=== PATIENT | male | born 1945 | race Caucasian/White ===

== ENCOUNTER 2022-02-12 11:32 | Outpatient (CLI) | payer MEDICARE, OTHER, SELFPAY ==
[2022-02-12 19:59] LABS: Appearance Urine Clear (Clear); Bilirubin Urine Negative (Negative); Blood Urine Negative (Negative); Color Urine Yellow (Yellow); Glucose Urine UA Negative (Negative); Ketones Urine Negative (Negative); Leukocyte Esterase Ur Negative LEU/UL (NEGATIVE); Nitrate Urine Negative (Negative); Protein Urine Negative (Negative); Urobilinogen Urine 0.2 mg/dL (<2.0); pH Urine 6.5 (5.0-9.0)
[2022-02-12 20:08] LABS: Bacteria Urine Trace /hpf; RBC Urine 0-2 /hpf (0-2); WBC Urine 0-3 /hpf (0-3)
[2022-02-12 20:09] LABS: Add Urine Microscopic? YES
== END 2022-02-12 11:33 | disposition home or self-care (01) ==
PROVIDERS: PCP Family Medicine; Visit Provider Family Medicine
DX: N30.90 Cystitis, unspecified without hematuria (principal)
CPT/HCPCS: 81001; 87086; 87147; 87181; 87186

== ENCOUNTER 2022-02-18 13:01 | Outpatient (CLI) | payer MEDICARE, OTHER, SELFPAY ==
[2022-02-18 20:01] LABS: Hematocrit 45.8 % (42.0-52.0); Hemoglobin 14.9 g/dL (14.0-18.0); Mean Corpuscular HGB Conc 32.5 g/dl (32-36); Mean Corpuscular Hemoglobin 30.7 pg (26-34); Mean Corpuscular Volume 94.2 fl (80-100); Mean Platelet Volume 10.7 fl (7.4-10.4); Platelet Count Result 186 k/mm3 (150-375); Red Blood Count 4.86 M/mm3 (4.6-6.20); Red Cell Distribution Width 14.1 % (11.5-14.5); White Blood Count 6.1 K/mm3 (4.5-10.0)
[2022-02-18 20:06] LABS: Alanine Aminotransferase 15 U/L (6-50); Albumin Level 4.6 g/dL (3.5-5.1); Alkaline Phosphatase 87 U/L (38-126); Anion Gap 8 mmol/L (8-16); Aspartate Amino Transferase 26 U/L (17-59); Bilirubin,Total 0.7 mg/dL (0.2-1.3); Blood Urea Nitrogen 10 mg/dL (9-20); Calcium 9.9 mg/dL (8.4-10.2); Carbon Dioxide 24 mmol/L (22-30); Chloride 105 mmol/L (98-107); Cholesterol 171 mg/dL (0-200); Estimated Glomerular Filt Rate > 60; Glucose 137 mg/dL (65-110); HDL Direct 47 mg/dL; Potassium 4.4 mmol/L (3.4-5.0); Sodium 137 mmol/L (137-145); Triglycerides 123 mg/dL (<150)
[2022-02-18 20:17] LABS: Hemoglobin A1C 5.4 % (<5.7); LDL Cholesterol Direct 87 mg/dL
[2022-02-18 20:32] LABS: Creatinine Urine 74.9 mg/dL
[2022-02-18 20:46] LABS: MALB Creatinine Ratio < 8.0 mg/g (0-30); Microalbumin Urine Random < 6.0 mg/L (0-16.7)
== END 2022-02-18 13:02 | disposition home or self-care (01) ==
PROVIDERS: PCP Family Medicine; Visit Provider Family Medicine
DX: E11.9 Type 2 diabetes mellitus without complications (principal)
CPT/HCPCS: 36415; 80053; 80061; 82043; 83036; 85027

== ENCOUNTER 2022-06-29 14:35 | Emergency (ER) | payer MEDICARE, OTHER, SELFPAY ==
[2022-06-29 14:44] VITALS: BP 160/75; PULSE 84; RESP 18; TEMP 37.2; O2SAT 97
--- NOTE | 2022-06-29 15:24 | ED.WOUNDLAC ---
HPI - Wound/Laceration General Chief Complaint: Wound/Laceration Stated Complaint: lac on head Time Seen by Provider: 06/29/22 15:10 Source: patient, family, RN notes reviewed and old records reviewed Mode of arrival: ambulatory Limitations: no limitations History of Present Illness HPI narrative: 76-year-old male accompanied by son who presents to [facility] care with complaints of laceration to his head which occurred within the past hour prior to arrival. He states that his son and himself were putting siding on a house and a cordless drill fell off of ladder and hit him in the head causing laceration to parietal region of his head. Patient denies any LOC or any feelings of dizziness. Patient reports that he is unsure on his last tetanus and refused tetanus administration. No acute bleeding to scalp laceration.Patient has small abrasion to left cheek no bleeding noted. Onset (ago): hour(s) (within past hour prior to arrival) Location: scalp Patient tetanus UTD: No Treatments prior to arrival: bandage Related Data Home Medications Medication Instructions Recorded Confirmed timolol 0.5 % eye drops 1 drp EACH EYE Q12H 02/13/22 06/29/22 dorzolamide 22.3 mg-timolol 6.8 See Rx Instructions .Route .COMPLEX 06/29/22 06/29/22 mg/mL eye drops latanoprost 0.005 % eye drops See Rx Instructions .Route .COMPLEX 06/29/22 06/29/22 moxifloxacin 0.5 % eye drops See Rx Instructions .Route .COMPLEX 06/29/22 06/29/22 prednisolone acetate 1 % eye See Rx Instructions .Route .COMPLEX 06/29/22 06/29/22 drops,suspension timolol maleate 0.5 % eye drops See Rx Instructions .Route .COMPLEX 06/29/22 06/29/22 Allergies Allergy/AdvReac Type Severity Reaction Status Date / Time No Known Allergies Allergy Verified 02/17/22 15:17 Review of Systems Review of Systems: CONSTITUTIONAL: Denies fever, chills, or sweats. EYES: Denies visual changes, redness, or discharge. ENT: Denies rhinorrhea, congestion, sore throat, or otalgia. CARDIOVASCULAR: Denies chest pain, palpitations, or edema. RESPIRATORY: Denies cough or dyspnea. GASTROINTESTINAL: Denies abdominal pain, nausea, vomiting, or diarrhea. GENITOURINARY: Denies dysuria or hematuria. SKIN: Denies rash or itching.small abrasion to left cheek and scalp laceration to parietal region o head MUSCULOSKELETAL: Denies back pain, joint pain, or myalgia. NEUROLOGIC: Denies any acute headache, no numbness, or weakness, denies any dizziness or feelings of being lightheaded PSYCHIATRIC: Denies anxiety or depression. All systems reviewed & are unremarkable except as noted in HPI and below PMFSH Past Medical History Medical History (Updated 07/03/22 @ 11:28 by Coleen Perez NP) COVID-30 October 2020 Diabetes Glaucoma Hypertension Surgical History Surgical History (Updated 07/03/22 @ 11:27 by Coleen Perez NP) H/O cataract removal with insertion of prosthetic lens Family History Family History Father Heart disease Social History Social History Smoking status: Never smoker Comments At time of signature, agree with nursing past medical, surgical, social and family history. There is no relevant family history pertinent to the presenting complaint Exam Narrative: GENERAL: Well-appearing, well-nourished, and in no acute distress. HEAD: Normocephalic, atraumatic. EYES: PERRLA and EOMI. ENT: Nares clear, no rhinorrhea or epistaxis. Mucous membranes moist.TM's normal with good light reflex, throat pink with no lesions or swelling NECK: Supple.no lymphadenopathy CHEST: Clear to auscultation. No respiratory distress.SAO2 97% on room air HEART: Regular rate and rhythm. No murmur heard. Normal peripheral pulses. ABDOMEN: Soft, nontender, nondistended, normal active bowel sounds. EXTREMITIES: Normal range of motion. No edema. SKIN: Warm, dry, no rash.Scalp laceration 3.5cm in length with
--- NOTE | 2022-06-29 19:53 | PC.NURSE ---
1610 noted during stay pt informed staff he had left eye cataract surgery 06/25. reported no vision changes or pain to left eye since injury to top of head today and on discharge stated he will inform opthalmologist of this occurrence today.
== END 2022-06-29 16:10 | disposition home or self-care (01) ==
PROVIDERS: Emergency Provider Registered Nurse; PCP Family Medicine
DX: S01.01XA Laceration without foreign body of scalp, initial encounter (principal); W20.8XXA Other cause of strike by thrown, projected or falling object, initial encounter; I10 Essential (primary) hypertension; E11.39 Type 2 diabetes mellitus with other diabetic ophthalmic complication; H42 Glaucoma in diseases classified elsewhere; Z79.84 Long term (current) use of oral hypoglycemic drugs; Z86.16 Personal history of COVID-19; Z98.49 Cataract extraction status, unspecified eye; Z96.1 Presence of intraocular lens
CPT/HCPCS: 12002; 99212; G0463

== ENCOUNTER 2022-08-21 14:20 | Outpatient (CLI) | payer MEDICARE, OTHER, SELFPAY ==
[2022-08-21 19:56] LABS: Hemoglobin A1C 6.1 % (<5.7)
[2022-08-21 20:06] LABS: Creatinine Urine 45.2 mg/dL
[2022-08-21 20:07] LABS: MALB Creatinine Ratio 16.4 mg/g (0-30); Microalbumin Urine Random 7.4 mg/L (0-16.7)
== END 2022-08-21 14:21 | disposition home or self-care (01) ==
PROVIDERS: PCP Family Medicine; Visit Provider Family Medicine
DX: E11.9 Type 2 diabetes mellitus without complications (principal)
CPT/HCPCS: 36415; 82043; 83036

== ENCOUNTER 2023-02-19 07:44 | Outpatient (CLI) | payer MEDICARE, OTHER, SELFPAY ==
[2023-02-19 19:18] LABS: Alanine Aminotransferase 23 U/L (6-50); Albumin Level 4.3 g/dL (3.5-5.1); Alkaline Phosphatase 113 U/L (38-126); Anion Gap 8 mmol/L (8-16); Aspartate Amino Transferase 58 U/L (17-59); Bilirubin,Total 0.8 mg/dL (0.2-1.3); Blood Urea Nitrogen 11 mg/dL (9-20); Carbon Dioxide 25 mmol/L (22-30); Chloride 104 mmol/L (98-107); Cholesterol 171 mg/dL (0-200); Estimated Glomerular Filt Rate > 60; Glucose 127 mg/dL (65-110); HDL Direct 34 mg/dL; Potassium 4.3 mmol/L (3.4-5.0); Sodium 137 mmol/L (137-145); Triglycerides 147 mg/dL (<150)
[2023-02-19 19:29] LABS: LDL Cholesterol Direct 96 mg/dL
[2023-02-19 19:46] LABS: Basophils Percent Auto 0.9 % (0.2-1.2); Eosinophils Absolute Auto 0.1 K/mm3 (0-0.3); Eosinophils Percent Auto 2.6 % (0-4.4); Hematocrit 44.1 % (42.0-52.0); Hemoglobin 14.5 g/dL (14.0-18.0); Immature Granulocyte Absolute 0.02 K/mm3 (0.00-0.031); Immature Granulocyte Percent A 0.5 % (0-0.5); Lymphocytes Absolute Auto 1.59 K/mm3 (0.9-3.2); Lymphocytes Percent Auto 37.1 % (18.3-44.2); Mean Corpuscular HGB Conc 32.9 g/dl (32-36); Mean Corpuscular Hemoglobin 30.9 pg (26-34); Mean Platelet Volume 10.8 fl (7.4-10.4); Monocytes Absolute Auto 0.6 K/mm3 (0.1-0.6); Monocytes Percent Auto 13.1 % (2.6-8.5); Neutrophils Percent Auto 45.8 % (45.5-73.1); Platelet Count Result 171 k/mm3 (150-375); Red Blood Count 4.69 M/mm3 (4.6-6.20); Red Cell Distribution Width 13.8 % (11.5-14.5); White Blood Count 4.3 K/mm3 (4.5-10.0)
[2023-02-19 21:25] LABS: Hemoglobin A1C 5.9 % (<5.7)
== END 2023-02-19 07:45 | disposition home or self-care (01) ==
PROVIDERS: PCP Family Medicine; Visit Provider Nurse Practitioner
DX: E11.9 Type 2 diabetes mellitus without complications (principal); I10 Essential (primary) hypertension
CPT/HCPCS: 36415; 80053; 80061; 83036; 85025

== ENCOUNTER 2023-12-21 14:45 | Outpatient (CLI) | payer MEDICARE, OTHER, SELFPAY ==
[2023-12-21 18:47] LABS: Hematocrit 44.1 % (42.0-52.0); Hemoglobin 14.4 g/dL (14.0-18.0); Mean Corpuscular HGB Conc 32.7 g/dl (32-36); Mean Corpuscular Hemoglobin 29.9 pg (26-34); Mean Corpuscular Volume 91.5 fl (80-100); Mean Platelet Volume 10.3 fl (7.4-10.4); Platelet Count Result 166 k/mm3 (150-375); Red Blood Count 4.82 M/mm3 (4.6-6.20)
[2023-12-21 18:57] LABS: Alanine Aminotransferase 52 U/L (6-50); Albumin Level 4.2 g/dL (3.5-5.1); Alkaline Phosphatase 172 U/L (38-126); Anion Gap 6 mmol/L (8-16); Aspartate Amino Transferase 54 U/L (17-59); Blood Urea Nitrogen 13 mg/dL (9-20); Calcium 9.9 mg/dL (8.4-10.2); Carbon Dioxide 29 mmol/L (22-30); Chloride 103 mmol/L (98-107); Estimated Glomerular Filt Rate > 60; Glucose 126 mg/dL (65-110); Potassium 3.9 mmol/L (3.4-5.0); Sodium 138 mmol/L (137-145)
[2023-12-21 19:09] LABS: Hemoglobin A1C 6.5 % (<5.7)
[2023-12-21 20:16] LABS: Creatinine Urine 31.8 mg/dL
[2023-12-21 20:22] LABS: MALB Creatinine Ratio < 18.9 mg/g (0-30); Microalbumin Urine Random < 6.0 mg/L (0-16.7)
== END 2023-12-21 14:46 | disposition home or self-care (01) ==
LOC: ANHBWCLAB 14:47
PROVIDERS: PCP Family Medicine; Visit Provider Family Medicine
DX: E11.9 Type 2 diabetes mellitus without complications (principal)
CPT/HCPCS: 36415; 80053; 82043; 83036; 85027

== ENCOUNTER 2024-01-26 12:24 | Outpatient (CLI) | payer MEDICARE, OTHER, SELFPAY ==
--- NOTE | ~2024-01-26 | CT_ITS ---
Noncontrast CT scan of the orbits CLINICAL HISTORY: Vision change TECHNIQUE: Axial noncontrast imaging of the orbits was performed. Sagittal and coronal reformatted im ages were constructed. Dose reduction technique was used on this scan by utilizing automated exposure control and iterative reconstruction technique. The dose-length product (DLP) was 221.76 mGy-cm. Findings: Eye globes are symmetric in size and position. Extraocular muscles are unremarkable. No int raorbital mass identified. Optic chiasm grossly unremarkable. No distinct evidence for sellar or supr asellar mass. Soft tissues are unremarkable. No fracture identified. Paranasal sinuses are clear. IMPRESSION: No significant abnormality identified. Reviewed, dictated and finalized at location .
--- NOTE | ~2024-01-26 | CT_ITS ---
Non-contrast Head CT History: Visual disturbance Technique: Axial non-contrast imaging of the brain was performed. Dose reduction technique was used on this scan by utilizing automated exposure control and iterative reconstruction technique. The dose -length product (DLP) was 599.57 mGy-cm. Findings: There is no evidence of intracranial hemorrhage, mass lesion, or acute infarct. Brain par enchyma appears normal. The ventricles and subarachnoid spaces are normal in size. The calvarium ap pears normal. The visualized paranasal sinuses and mastoid air cells are clear. Impression: No significant abnormality seen. Reviewed, dictated and finalized at location . Impression: No significant abnormality seen.
== END 2024-01-26 12:25 ==
PROVIDERS: PCP Family Medicine; Visit Provider Family Medicine
DX: H53.9 Unspecified visual disturbance (principal)
CPT/HCPCS: 70450; 70480

== ENCOUNTER 2024-03-02 15:29 | Outpatient (CLI) | payer MEDICARE, OTHER, SELFPAY ==
[2024-03-02 20:00] LABS: Basophils Percent Auto 0.5 % (0.2-1.2); Eosinophils Absolute Auto 0.1 K/mm3 (0-0.3); Eosinophils Percent Auto 2.6 % (0-4.4); Hematocrit 40.4 % (42.0-52.0); Hemoglobin 13.2 g/dL (14.0-18.0); Immature Granulocyte Absolute 0.02 K/mm3 (0.00-0.031); Immature Granulocyte Percent A 0.4 % (0-0.5); Lymphocytes Percent Auto 23.8 % (18.3-44.2); Mean Corpuscular HGB Conc 32.7 g/dl (32-36); Mean Corpuscular Hemoglobin 29.8 pg (26-34); Mean Corpuscular Volume 91.2 fl (80-100); Mean Platelet Volume 11.1 fl (7.4-10.4); Monocytes Absolute Auto 0.7 K/mm3 (0.1-0.6); Monocytes Percent Auto 13.2 % (2.6-8.5); Neutrophils Absolute Auto 3.3 K/mm3 (1.3-6.7); Neutrophils Percent Auto 59.5 % (45.5-73.1); Platelet Count Result 180 k/mm3 (150-375); Red Blood Count 4.43 M/mm3 (4.6-6.20); Red Cell Distribution Width 13.9 % (11.5-14.5); White Blood Count 5.5 K/mm3 (4.5-10.0)
[2024-03-02 20:17] LABS: Alanine Aminotransferase 89 U/L (6-50); Albumin Level 3.9 g/dL (3.5-5.1); Alkaline Phosphatase 459 U/L (38-126); Anion Gap 6 mmol/L (4-12); Aspartate Amino Transferase 125 U/L (17-59); Bilirubin,Total 0.9 mg/dL (0.2-1.3); Blood Urea Nitrogen 7 mg/dL (9-20); Calcium 9.8 mg/dL (8.4-10.2); Carbon Dioxide 30 mmol/L (22-30); Chloride 103 mmol/L (98-107); Estimated Glomerular Filt Rate > 60; Glucose 159 mg/dL (65-110); Potassium 3.9 mmol/L (3.4-5.0); Sodium 139 mmol/L (137-145)
[2024-03-02 20:32] LABS: Alanine Aminotransferase 93 U/L (6-50); Albumin Level 3.9 g/dL (3.5-5.1); Alkaline Phosphatase 452 U/L (38-126); Aspartate Amino Transferase 126 U/L (17-59); Bilirubin,Total 0.9 mg/dL (0.2-1.3)
[2024-03-02 20:46] LABS: Hepatitis B Surface Antigen Negative (Negative)
[2024-03-02 20:47] LABS: Appearance Urine Clear (Clear); Bilirubin Urine Negative (Negative); Blood Urine Negative (Negative); Color Urine Yellow (Yellow); Glucose Urine UA Negative (Negative); Ketones Urine Negative (Negative); Leukocyte Esterase Ur Negative LEU/UL (Negative); Nitrate Urine Negative (Negative); Protein Urine Negative (Negative); Specific Grav Ur 1.007 (1.001-1.035)
[2024-03-02 20:51] LABS: HAV RESULT Negative (Negative); Hepatitis B Core IgM Result Negative (Negative)
[2024-03-02 21:03] LABS: Hepatitis C Virus Antibody Negative (Negative)
[2024-03-02 21:07] LABS: Add Urine Microscopic? NO
== END 2024-03-02 15:30 | disposition home or self-care (01) ==
LOC: ANHBWCLAB 15:31
PROVIDERS: PCP Nurse Practitioner Adult Health; Visit Provider Family Medicine
DX: R10.11 Right upper quadrant pain (principal); R74.01 Elevation of levels of liver transaminase levels; R74.8 Abnormal levels of other serum enzymes
CPT/HCPCS: 36415; 80053; 80074; 80076; 81003; 85025

== ENCOUNTER 2024-03-10 08:15 | Outpatient (CLI) | payer MEDICARE, OTHER, SELFPAY ==
--- NOTE | ~2024-03-10 | CT_ITS ---
EXAMINATION: CT abdomen pelvis wo con DATE: 03/10/2024 08:35 INDICATION: Right upper quadrant abdominal pain. TECHNIQUE: Computed tomography (CT) of the abdomen and pelvis was performed without intravenous contr ast. Automated exposure control and iterative reconstruction technique were employed. The dose-length product was 1122.92 mGy-cm. COMPARISON: None. FINDINGS: The visualized portions of the lung bases demonstrate mild atelectasis and mild chronic int erstitial lung disease. There is a trace left pleural effusion. The heart size is normal. No pericard ial effusion. There is paraesophageal lymphadenopathy. There is mild bilateral gynecomastia. There ar e cysts in the liver measuring up to 8 mm. The gallbladder is distended. There is a 6.7 cm mass abutt ing the hilum of the liver and the head of the pancreas. The adrenal glands are normal. There is a 12 mm cyst in right kidney. There are parenchymal calcifications in left kidney. The prostate is modera tely enlarged. There is diverticulosis of the colon without evidence of diverticulitis. The appendix is normal. There is a moderate volume of ascites with nodular peritoneal thickening. There is gastroh epatic, periportal, aortocaval, left para-aortic lymphadenopathy. There are bridging endplate osteoph ytes at multiple levels in the spine, consistent with diffuse idiopathic skeletal hyperostosis (DISH) . There is severe lumbar spondylosis. IMPRESSION: 1. 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 Diagnostic paracentesis is recommended. 2. Chest and abdominal lymphadenopathy, consistent with metastatic disease. 3. Mass abutting the hilum of the liver and the head of the pancreas, which may be lorenzo metastatic d isease or a pancreatic mass. 4. Gallbladder distention, which may be secondary to fasting or acute cholecystitis from cystic duct or common duct obstruction from the mass abutting the hilum of the liver. Consider hepatobiliary scin tigraphy. Reviewed, dictated and finalized at location A. IMPRESSION: 1. 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 Diagnostic parace ntesis is recommended. 2. Chest and abdominal lymphadenopathy, consistent with metastatic disease. 3. Mass abutting the hilum of the liver and the head of the pancreas, which may be lorenzo metastatic disease or a pancreatic mass. 4. Gallbladder distention, which may be secondary to fasting or acute cholecyst itis from cystic duct or common duct obstruction from the mass abutting the hil um of the liver. Consider hepatobiliary scintigraphy.
== END 2024-03-10 08:16 ==
LOC: GOSHIMG 08:17
PROVIDERS: PCP Nurse Practitioner Adult Health; Visit Provider Nurse Practitioner Adult Health
DX: C78.6 Secondary malignant neoplasm of retroperitoneum and peritoneum (principal); R59.1 Generalized enlarged lymph nodes; K82.8 Other specified diseases of gallbladder
CPT/HCPCS: 74176

== ENCOUNTER 2024-03-15 11:05 | Outpatient (CLI) | payer MEDICARE, OTHER, SELFPAY ==
[2024-03-15 11:36] LABS: Basophils Percent Auto 0.7 % (0.2-1.2); Eosinophils Absolute Auto 0.1 K/mm3 (0-0.3); Eosinophils Percent Auto 1.9 % (0-4.4); Hematocrit 40.1 % (42.0-52.0); Hemoglobin 13.3 g/dL (14.0-18.0); Immature Granulocyte Absolute 0.03 K/mm3 (0.00-0.031); Immature Granulocyte Percent A 0.5 % (0-0.5); Lymphocytes Absolute Auto 1.01 K/mm3 (0.9-3.2); Lymphocytes Percent Auto 17.6 % (18.3-44.2); Mean Corpuscular HGB Conc 33.2 g/dl (32-36); Mean Corpuscular Volume 90.3 fl (80-100); Mean Platelet Volume 9.9 fl (7.4-10.4); Monocytes Absolute Auto 0.8 K/mm3 (0.1-0.6); Monocytes Percent Auto 13.1 % (2.6-8.5); Neutrophils Absolute Auto 3.8 K/mm3 (1.3-6.7); Neutrophils Percent Auto 66.2 % (45.5-73.1); Platelet Count Result 172 k/mm3 (150-375); Red Blood Count 4.44 M/mm3 (4.6-6.20); Red Cell Distribution Width 13.6 % (11.5-14.5); White Blood Count 5.7 K/mm3 (4.5-10.0)
[2024-03-15 12:42] LABS: Alanine Aminotransferase 78 U/L (6-50); Albumin Level 3.8 g/dL (3.5-5.1); Alkaline Phosphatase 570 U/L (38-126); Anion Gap 7 mmol/L (4-12); Aspartate Amino Transferase 89 U/L (17-59); Bilirubin,Total 1.2 mg/dL (0.2-1.3); Blood Urea Nitrogen 6 mg/dL (9-20); Calcium 9.8 mg/dL (8.4-10.2); Carbon Dioxide 29 mmol/L (22-30); Chloride 100 mmol/L (98-107); Estimated Glomerular Filt Rate > 60; Glucose 134 mg/dL (65-110); Sodium 136 mmol/L (137-145)
[2024-03-16 16:09] LABS: CA 19-9 <3 U/mL (<34)
== END 2024-03-15 11:06 | disposition home or self-care (01) ==
LOC: ANHLAB 11:11
PROVIDERS: PCP Nurse Practitioner Adult Health; Visit Provider Internal Medicine Hematology & Oncology
DX: C25.9 Malignant neoplasm of pancreas, unspecified (principal)
CPT/HCPCS: 36415; 80053; 85025; 86301

== ENCOUNTER 2024-03-15 11:52 | Outpatient (CLI) | payer MEDICARE, OTHER, SELFPAY ==
--- NOTE | ~2024-03-15 | US_ITS ---
EXAMINATION: US paracentesis abd w/image DATE: 03/15/2024 15:57 INDICATION: Ascites. TECHNIQUE: The procedure and its risks, benefits, and alternatives were discussed with the patient. P otential risks discussed included bleeding and infection. The skin was prepped and draped in sterile fashion. 1% lidocaine was used for local anesthesia. Under ultrasound guidance, a 5 Fr catheter with trochar was advanced into the ascites in the right lower quadrant. Fluid was aspirated. The catheter was removed, and a dressing was applied. There were no immediate complications. FINDINGS: Ultrasound images demonstrate ascites and the catheter within the fluid. IMPRESSION: 1. Successful ultrasound-guided paracentesis yielding 1100 mL of red fluid. Reviewed, dictated and finalized at location A.
[2024-03-15 14:45] LABS: INR 1.1
== END 2024-03-15 11:53 | disposition home or self-care (01) ==
PROVIDERS: Radiology Diagnostic Radiology; PCP Nurse Practitioner Adult Health; Visit Provider Internal Medicine Hematology & Oncology
DX: R18.0 Malignant ascites (principal)
CPT/HCPCS: 36415; 49083; 80053; 85025; 85610; 86301; 88108; 88305; 88342

== ENCOUNTER 2024-03-16 08:44 | Outpatient (CLI) | payer MEDICARE, OTHER, SELFPAY ==
--- NOTE | ~2024-03-16 | PE_ITS ---
EXAMINATION: PET skull to mid thigh DATE: 03/16/2024 11:31 INDICATION: Neoplasm of pancreas, unspecified. TECHNIQUE: Blood glucose level was 133 mg/dL. 9.221 mCi of 18-fluorodeoxyglucose (18-FDG) was adminis tered i.v. Low dose computed tomography (CT) images were acquired from the base of the brain to the p roximal thighs for attenuation correction and anatomic localization. Automated exposure control was e mployed. Dose-length product (DLP) was 1278 mGy-cm. Positron emission tomography (PET) images were ac quired in the same distribution. COMPARISON: CT abdomen and pelvis 03/10/2024 FINDINGS: Head/neck: There are nodules in the thyroid measuring up to 14 mm, likely not clinically significant. There is left supraclavicular lymphadenopathy with maximum SUV of 3.1. The largest left supraclavicu lar node measures 2.1 x 1.9 cm. Chest: The lungs demonstrate mild atelectasis. There are small pleural effusions. The heart size is n ormal. No pericardial effusion. There is mediastinal lymphadenopathy with increased activity. There i s bilateral gynecomastia. Abdomen/pelvis/proximal thighs: The liver is normal. There is sludge or stones in the gallbladder, wh ich is normal in size. The spleen, pancreas, and adrenal glands are normal. There is an 11 mm cyst in right kidney. There are parenchymal calcifications in left kidney. The prostate is moderately enlarg ed. There are no dilated loops of bowel. There is a moderate volume of ascites with nodular peritonea l thickening. There is aortocaval, left para-aortic, mesenteric, periportal, gastrohepatic, and perip ortal lymphadenopathy. There is no osseous malignancy. IMPRESSION: 1. Lymphadenopathy in the chest, abdomen, and pelvis and peritoneal nodularity, consistent with metas tatic disease or lymphoma. Consider ultrasound-guided core needle biopsy of a left supraclavicular ly mph node. 2. Moderate volume of ascites. 3. Small pleural effusions. Reviewed, dictated and finalized at location A. IMPRESSION: 1. Lymphadenopathy in the chest, abdomen, and pelvis and peritoneal nodularity, consistent with metastatic disease or lymphoma. Consider ultrasound-guided cor e needle biopsy of a left supraclavicular lymph node. 2. Moderate volume of ascites. 3. Small pleural effusions.
[2024-03-16 09:17] LABS: Glucose Point of Care 133 mg/dl (65-105)
== END 2024-03-16 08:45 | disposition home or self-care (01) ==
LOC: ANHIMG 08:47
PROVIDERS: PCP Nurse Practitioner Adult Health; Visit Provider Internal Medicine Hematology & Oncology
DX: C25.0 Malignant neoplasm of head of pancreas (principal); J90 Pleural effusion, not elsewhere classified; R18.8 Other ascites; R59.1 Generalized enlarged lymph nodes
CPT/HCPCS: 78815; A9552

== ENCOUNTER 2024-03-24 10:00 | Outpatient (CLI) | payer MEDICARE, OTHER, SELFPAY ==
[2024-03-24 12:53] LABS: Prostate Specific Antigen 6.5 ng/mL (< OR = 4.0)
== END 2024-03-24 10:01 | disposition home or self-care (01) ==
LOC: ANHLAB 10:02
PROVIDERS: PCP Nurse Practitioner Adult Health; Visit Provider Internal Medicine Hematology & Oncology
DX: N40.0 Benign prostatic hyperplasia without lower urinary tract symptoms (principal)
CPT/HCPCS: 36415; 84153

== ENCOUNTER 2024-03-28 08:59 | Outpatient (CLI) | payer MEDICARE, OTHER, SELFPAY ==
--- NOTE | ~2024-03-28 | US_ITS ---
EXAMINATION: US biopsy lymph node DATE: 03/28/2024 10:04 INDICATION: Left supraclavicular lymphadenopathy TECHNIQUE: The procedure including the risks and benefits was discussed with the patient. Risks discu ssed included bleeding and infection. The patient understood the risks and agreed to proceed. The sk in overlying the enlarged left supraclavicular lymph nodes of concern was prepped and draped in usual sterile fashion. Anesthetic was administered with 1% lidocaine subcutaneously. An 18 gauge core bi opsy needle was advanced under continuous ultrasound observation to the lesion of interest. 7 core b iopsy specimens were obtained, 5 placed in RPMI media and 2 in formalin. The needle was removed and the entry site was cleaned and dressed. Post procedure ultrasound demonstrated no hemorrhage. FINDINGS: Ultrasound images demonstrate biopsy needle advanced into a 1.7 x 1.7 cm round left supracl avicular lymph node. IMPRESSION: 1. Successful Ultrasound-guided biopsy of a 1.7 cm left supraclavicular lymph node. Reviewed, dictated and finalized at location A. IMPRESSION: 1. Successful Ultrasound-guided biopsy of a 1.7 cm left supraclavicular lymph n ode.
== END 2024-03-28 09:00 | disposition home or self-care (01) ==
LOC: ANHIMG 09:02
PROVIDERS: PCP Nurse Practitioner Adult Health; Visit Provider Internal Medicine Hematology & Oncology
DX: R59.0 Localized enlarged lymph nodes (principal)
CPT/HCPCS: 38505; 76942; 88108; 88184; 88185; 88305; 88342

== ENCOUNTER 2024-04-04 16:01 | Outpatient (CLI) | payer MEDICARE, OTHER, SELFPAY ==
[2024-04-04 16:15] LABS: Kit Draw Collected
== END 2024-04-04 16:02 | disposition home or self-care (01) ==
LOC: ANHLAB 16:03
PROVIDERS: PCP Nurse Practitioner Adult Health; Visit Provider Internal Medicine Hematology & Oncology
DX: R59.0 Localized enlarged lymph nodes (principal)
CPT/HCPCS: 36415

== ENCOUNTER 2024-04-16 16:39 | Inpatient (IN) | payer MEDICARE, OTHER, SELFPAY ==
--- NOTE | ~2024-04-16 | CT_ITS ---
EXAMINATION: CT abdomen pelvis wo con DATE: 04/16/2024 17:58 INDICATION: diffuse abd pain/bloating, ascites TECHNIQUE: Computed tomography (CT) of the abdomen and pelvis was performed without intravenous contr ast. Automated exposure control and iterative reconstruction technique were employed. The dose-length product was 1288.84 mGy-cm. COMPARISON: 03/10/2024; PET/CT 03/16/2024. FINDINGS: Lower thorax: Mild bibasilar scar/atelectasis. Coronary artery calcification. Enlarged periesophageal lymph nodes. Liver: Normal. Biliary/Gallbladder: Gallbladder is normal. No bile duct dilation. Pancreas: 6.5 cm mass at the head of the pancreas abutting the hilum of the liver. No ductal dilation . Spleen: Normal. Adrenals:No mass. Kidneys: No suspicious mass, obstructing stone, or hydronephrosis. Multiple left midpole complication is measuring up to 9 mm. GI tract: No small or large bowel dilation. Normal appendix. Diverticulosis without diverticulitis. Mesentery/Peritoneum: Moderate volume ascites. Nodular pleural surfaces, most pronounced in the upper abdomen, adjacent to the liver dome, and in the deep pelvis. Multiple enlarged gastrohepatic, peripo rtal, mesenteric, periaortic, and left inguinal lymph nodes. Retroperitoneum: No mass. Pelvis: Pelvic organs are within normal limits. Soft Tissues: Moderate diffuse body wall edema Bones: No acute osseous finding. IMPRESSION: Right upper quadrant mass at the head of the pancreas/hilum of the liver. Multiple hepatic masses suspicious for metastatic disease. Thoracic and upper abdominal lymphadenopathy. Peritoneal. Moderate ascites. Reviewed, dictated and finalized at location K.
--- NOTE | ~2024-04-16 | XR_ITS ---
EXAMINATION: XR chest 2V DATE: 04/16/2024 23:59 INDICATION: Shortness of breath. TECHNIQUE: Frontal and lateral views of the chest were obtained. COMPARISON: CT abdomen and pelvis 04/16/2024 FINDINGS: There is mild atelectasis in the lower lung zones. No pleural effusion or pneumothorax. The heart size is normal. IMPRESSION: 1. Mild atelectasis in the lower lung zones. Reviewed, dictated and finalized at location E.
--- NOTE | ~2024-04-16 | US_ITS ---
EXAMINATION: US renal BI DATE: 04/17/2024 10:39 INDICATION: Elevated creatinine. TECHNIQUE: Multiple ultrasound grayscale images of the kidneys were obtained. COMPARISON: CT abdomen pelvis 04/16/24 FINDINGS: The right kidney measures 11.2 x 5.6 x 6.7 cm. The left kidney measures 10.4 x 5.3 x 6.0 cm. The kidn eys demonstrate normal parenchymal echogenicity. There is no hydronephrosis. The bladder is not visua lized. There is a large volume of ascites. IMPRESSION: 1. Normal kidneys. No hydronephrosis. 2. Large volume of ascites. Reviewed, dictated and finalized at location E.
--- NOTE | ~2024-04-16 | US_ITS ---
EXAMINATION: US scrotum doppler DATE: 04/17/2024 08:32 INDICATION: Testicular swelling. TECHNIQUE: Grayscale and Doppler ultrasound images of the testes were obtained. COMPARISON: CT abdomen and pelvis 04/16/24 FINDINGS: The right testis measures 2.4 x 2.5 x 2.0 cm. The left testis measures 2.1 x 2.9 x 2.5 cm. There is normal vascular flow to both testes. The right epididymis is normal with normal vascular cj w. The left epididymis is normal with normal vascular flow. There is no varicocele or hydrocele. IMPRESSION: 1. Normal testes. Reviewed, dictated and finalized at location E. IMPRESSION: 1. Normal testes.
--- NOTE | ~2024-04-16 | XR_ITS ---
EXAMINATION: XR fl guide central line place DATE: 04/22/2024 09:17 INDICATION: Left port catheter insertion TECHNIQUE: 2 fluoroscopic images of the left chest were obtained during procedure performed by Dr. Raymundo morocho. Radiologist was not present for the imaging or procedure. The amount of fluoroscopy time used du ring this procedure was 0.3 minutes. COMPARISON: None. FINDINGS: Left subclavian central venous port catheter with distal tip at the superior cavoatrial junction. No evident pneumothorax in the visualized lungs. IMPRESSION: 1. Fluoroscopy utilized during placement of a left subclavian central venous port catheter with dista l tip at the superior cavoatrial junction. See procedure note for further detail. Reviewed, dictated and finalized at location A. IMPRESSION: 1. Fluoroscopy utilized during placement of a left subclavian central venous po rt catheter with distal tip at the superior cavoatrial junction. See procedure note for further detail.
--- NOTE | ~2024-04-16 | US_ITS ---
EXAMINATION: US paracentesis abd w/image DATE: 04/22/2024 11:14 INDICATION: Ascites. TECHNIQUE: The procedure and its risks and benefits were discussed with the patient. Potential risks discussed included bleeding and infection. The skin was prepped and draped in sterile fashion. 1% lid ocaine was used for local anesthesia. Under ultrasound guidance, a 5 Fr catheter with trochar was adv anced into the ascites in the left lower quadrant. Fluid was aspirated into vacuum bottles. The jovanni ter was removed, and a dressing was applied. There were no immediate complications. FINDINGS: Ultrasound images demonstrate ascites and the catheter within the fluid. IMPRESSION: 1. Successful ultrasound-guided paracentesis yielding 5000 mL of reddish-brown fluid. Reviewed, dictated and finalized at location A.
--- NOTE | ~2024-04-16 | NM_ITS ---
EXAMINATION: NM renal flow and function DATE: 04/21/2024 09:13 INDICATION: Nonresolving acute renal insufficiency TECHNIQUE: 9 mCi Tc-99m MAG3 was administered IV. The patient was scanned in the supine position. A posterior abdominal radionuclide angiogram was obtained. A subsequent time course of static images of the kidneys, ureters, and bladder was obtained. COMPARISON: MRI dated 04/19/2024 FINDINGS: The posterior abdominal radionuclide angiogram and sequential static images show normal size, positio n, and morphology of the kidneys. No evident enlargement of the renal rebecca to suggest hydronephrosis. Peak renal parenchymal uptake was >29 min in left kidney and >29 min in right kidney (normal peak 3- 5 minutes) with continually increasing renal activity curves. The relative early renal uptake was 54 % on the left and 46% on the right (<40% is abnormal). No abnormalities of the ureters or bladder ar e seen. T1/2 for clearance of activity from the both kidneys is indeterminate with no evident accumulation of activity in the renal pelvises. IMPRESSION: 1. Symmetric markedly decreased renal function with continually rising renal activity curves with no discernible accumulation of activity in the bilateral renal pelvises consistent with severe nonspeci fic nephropathy which based on the current and recent prior imaging does not appear obstructive in et iology. Reviewed, dictated and finalized at location A. IMPRESSION: 1. Symmetric markedly decreased renal function with continually rising renal a ctivity curves with no discernible accumulation of activity in the bilateral re nal pelvises consistent with severe nonspecific nephropathy which based on the current and recent prior imaging does not appear obstructive in etiology.
--- NOTE | ~2024-04-16 | MR_ITS ---
EXAMINATION: MR abdomen wo/w con DATE: 04/19/2024 14:18 INDICATION: Metastatic cancer. TECHNIQUE: Magnetic resonance imaging (MRI) of the abdomen was performed without and with 20 mL Multi Asha intravenous contrast. COMPARISON: CT abdomen and pelvis 04/16/24 FINDINGS: There is a 9.1 x 7.6 cm mass in the liver centered at the hilum. There are multiple smaller masses sc attered in the liver. There are gallstones in the gallbladder, which is distended. The spleen, pancre as, adrenal glands, and left kidney are normal. There is a 9 mm hemorrhagic cyst in right kidney. The re are no dilated loops of bowel. There is a moderate volume of ascites. There is nodularity of the p eritoneum, consistent with carcinomatosis. There is aortocaval, left para-aortic, gastrohepatic, effie portal, and mesenteric lymphadenopathy. Body wall edema is noted. IMPRESSION: 1. Liver masses, abdominal lymphadenopathy, and moderate volume of malignant ascites, consistent with metastatic disease. 2. Cholelithiasis. Gallbladder distention may secondary to fasting. Reviewed, dictated and finalized at location E. IMPRESSION: 1. Liver masses, abdominal lymphadenopathy, and moderate volume of malignant as cites, consistent with metastatic disease. 2. Cholelithiasis. Gallbladder distention may secondary to fasting.
--- NOTE | ~2024-04-16 | XR_ITS ---
EXAMINATION: XR chest port-a-cath/central DATE: 04/22/2024 09:36 INDICATION: Port catheter placement TECHNIQUE: frontal view of the chest was obtained. COMPARISON: Chest radiograph dated 04/16/2024 FINDINGS: Left subclavian central venous port catheter with distal tip at the superior cavoatrial junction. Unc hanged mild streaky atelectasis/scarring at the left lower lung zone. No new airspace opacities, pulm onary edema, pleural effusion or pneumothorax. The cardiomediastinal silhouette is normal. IMPRESSION: 1. Left subclavian central venous port catheter with distal tip at the superior cavoatrial junction. 2. Chronic atelectasis/scarring at the left lower lung zone. Reviewed, dictated and finalized at location A.
--- NOTE | ~2024-04-16 | US_ITS ---
EXAMINATION: US paracentesis abd w/image DATE: 04/18/2024 12:34 INDICATION: Ascites. TECHNIQUE: The procedure and its risks and benefits were discussed with the patient. Potential risks discussed included bleeding and infection. The skin was prepped and draped in sterile fashion. 1% lid ocaine was used for local anesthesia. Under ultrasound guidance, a 5 Fr catheter with trochar was adv anced into the ascites in the left lower quadrant. Fluid was aspirated into vacuum bottles. The jovanni ter was removed, and a dressing was applied. There were no immediate complications. FINDINGS: Ultrasound images demonstrate ascites and the catheter within the fluid. IMPRESSION: 1. Successful ultrasound-guided paracentesis yielding 5000 mL of brownish-red fluid. Reviewed, dictated and finalized at location A.
--- NOTE | ~2024-04-16 | US_ITS ---
EXAMINATION: US venous doppler [facility] DATE: 04/17/2024 10:40 INDICATION: Lower limb edema. TECHNIQUE: Grayscale ultrasound images without and with compression and Doppler ultrasound images of the bilateral lower extremity veins were obtained. COMPARISON: None. FINDINGS: The visualized portions of right common femoral vein, profunda (deep) femoral vein, femoral vein, pop liteal vein, peroneal veins, posterior tibial veins, and greater saphenous vein outflow are patent. T here is a small Miller's cyst. Subcutaneous edema is noted. The visualized portions of left common femoral vein, profunda femoral vein, femoral vein, popliteal v ein, peroneal veins, posterior tibial veins, and greater saphenous vein outflow are patent. Subcutane ous edema is noted. IMPRESSION: 1. No deep venous thrombosis. 2. Small right-sided Miller's cyst. Reviewed, dictated and finalized at location E.
[2024-04-16 16:40] VITALS: BP 138/67; PULSE 104; RESP 20; TEMP 36.2; O2SAT 98
[2024-04-16 16:50] VITALS: BP 139/71; PULSE 85; RESP 16; O2SAT 96
--- NOTE | 2024-04-16 16:55 | ED.ABDPAIN ---
HPI - Abdominal Pain General Chief Complaint: Abdominal Pain Stated Complaint: ASCITES HX CANCER Time Seen by Provider: 04/16/24 16:48 Source: patient and old records reviewed Mode of arrival: ambulatory Limitations: no limitations History of Present Illness HPI narrative: Patient is a 78 y/o male who presents to the ED with c/o abdominal pain and bloating. Son at bedside assisted in providing patient's information. Reports since middle of February, patient has been diagnosed with metastatic CA. Unknown primary source. Had a PET scan which was consistent w/ possible lymphoma. LN biopsy showed metastatic adenocarcinoma. He is following with Dr. Verma for this and is scheduled to undergo further work-up next week. Patient reports over the last 1 week, he has had increased pressure, bloating, swelling in his abdomen. He recently had a paracentesis for ascites and feels he needs this performed again. Patient reports mild constipation, last BM 4 days ago. He also reports swelling in his testicles for the past few weeks. Denies testicular pain, N/V, fevers, difficulty urinating. Son also reports patient has had decreased appetite over the last week, has been on boost protein shakes alone. Related Data Home Medications Medication Instructions Recorded Confirmed latanoprost 0.005 % eye drops See Rx Instructions .Route .COMPLEX 06/29/22 03/02/24 moxifloxacin 0.5 % eye drops See Rx Instructions .Route .COMPLEX 06/29/22 03/02/24 prednisolone acetate 1 % eye See Rx Instructions .Route .COMPLEX 06/29/22 03/02/24 drops,suspension timolol maleate 0.5 % eye drops See Rx Instructions .Route .COMPLEX 06/29/22 03/02/24 Allergies Allergy/AdvReac Type Severity Reaction Status Date / Time No Known Allergies Allergy Verified 03/02/24 15:09 Review of Systems Review of Systems: CONSTITUTIONAL: Denies fever, chills, or sweats. CARDIOVASCULAR: Denies chest pain, palpitations, or edema. RESPIRATORY: Denies cough or dyspnea. GASTROINTESTINAL: see HPI. GENITOURINARY: See HPI. All systems reviewed & are unremarkable except as noted in HPI and below PMFSH Past Medical History Medical History COVID-30 October 2020 Diabetes Glaucoma Hypertension Surgical History Surgical History H/O cataract removal with insertion of prosthetic lens Family History Family History Father Heart disease Social History Social History Smoking status: Never smoker Lack of Transportation: No Lack of Food: Never True Current Housing: I Have Housing Concerned About Future Housing: No Difficulty Paying Gas/Electric Bills: No Difficulty Paying for Meds: No Currently Unemployed: No Education: Trade/Vocational Certificate Difficulty w/ Childcare or Family Care: No Exam Narrative: GENERAL: Ill appearing, well-nourished, non-toxic, in no acute distress. HEAD: Normocephalic, atraumatic. RESPIRATORY: Airway patent, respirations nonlabored. Clear to auscultation bilaterally, no rales, rhonchi, wheezing. CARDIOVASCULAR: Borderline tachycardic with regular rhythm without murmurs, rubs, or gallops. ABDOMINAL: Abdomen slightly firm and distended, no significant focal tenderness. Normoactive BS. MUSCULOSKELETAL: Moves all extremities. No gross deformities. SKIN: Warm, dry, normal color. NEURO: A&O X3. Speech clear. PSYCHIATRIC: Flat affect. Normal interaction. Course Vital Signs Vital signs: Vital Signs Temperature 97.2 F L 04/16/24 16:40 Pulse Rate 104 H 04/16/24 16:40 Respiratory Rate 20 04/16/24 16:40 Blood Pressure 138/67 04/16/24 16:40 Pulse Oximetry 98 04/16/24 16:40 Oxygen Delivery Room Air 04/16/24 16:40 Temperature 97.2 F L 04/16/24 16:40 Pulse Rat
[2024-04-16 17:04] LABS: Basophils Absolute Auto 0.1 K/mm3 (0.0-0.1); Basophils Percent Auto 0.5 % (0.2-1.2); Eosinophils Absolute Auto 0.1 K/mm3 (0-0.3); Eosinophils Percent Auto 0.5 % (0-4.4); Hematocrit 36.9 % (42.0-52.0); Hemoglobin 12.5 g/dL (14.0-18.0); Immature Granulocyte Absolute 0.08 K/mm3 (0.00-0.031); Immature Granulocyte Percent A 0.7 % (0-0.5); Lymphocytes Absolute Auto 0.92 K/mm3 (0.9-3.2); Lymphocytes Percent Auto 8.3 % (18.3-44.2); Mean Corpuscular HGB Conc 33.9 g/dl (32-36); Mean Corpuscular Volume 88.5 fl (80-100); Mean Platelet Volume 9.5 fl (7.4-10.4); Monocytes Percent Auto 8.6 % (2.6-8.5); Neutrophils Percent Auto 81.4 % (45.5-73.1); Platelet Count Result 373 k/mm3 (150-375); Red Blood Count 4.17 M/mm3 (4.6-6.20); Red Cell Distribution Width 13.8 % (11.5-14.5); White Blood Count 11.1 K/mm3 (4.5-10.0)
[2024-04-16 17:12] LABS: Lactic Acid Reflex 1.2 mmol/L (0.7-2.0)
[2024-04-16 17:20] LABS: INR 1.1; Prothrombin Time 15.1 Seconds (11.1-14.7)
[2024-04-16 17:21] LABS: Partial Thromboplastin Time 31.1 Seconds (22.3-36.8)
[2024-04-16 17:32] LABS: Alanine Aminotransferase 64 U/L (6-50); Albumin Level 3.4 g/dL (3.5-5.1); Alkaline Phosphatase 899 U/L (38-126); Anion Gap 4 mmol/L (4-12); Aspartate Amino Transferase 100 U/L (17-59); Bilirubin,Total 2.6 mg/dL (0.2-1.3); Blood Urea Nitrogen 61 mg/dL (9-20); Calcium 13.1 mg/dL (8.4-10.2); Carbon Dioxide 33 mmol/L (22-30); Chloride 91 mmol/L (98-107); Estimated CRCL calculation 22 ml/min; Estimated Glomerular Filt Rate 21; Glucose 161 mg/dL (65-110); Lipase 104 U/L (23-300); Potassium 4.9 mmol/L (3.4-5.0); Sodium 128 mmol/L (137-145)
--- NOTE | 2024-04-16 17:32 | ECG_ITS ---
Test Date: 2024-04-16 17:39:33 Measurements Intervals Locust Rate: 99 P: 47 WY: 154 QRS: -34 QRSD: 166 T: 0 QT: 351 QTc: 450 Interpretive Statements SINUS RHYTHM LEFT AXIS DEVIATION RIGHT BUNDLE BRANCH BLOCK HIGH LATERAL INFARCT, AGE INDETERMINATE BASELINE ARTIFACT- I, II, AVR, AVL, AVF, V4-V6 ABNORMAL ECG No previous ECG available for comparison Electronically Signed On 04-16-2024 18:23:52 CDT by Isaias Manrique D.O.
[2024-04-16 17:34] LABS: Magnesium 2.1 mg/dL (1.6-2.3)
[2024-04-16] MEDS: SODIUM CHLORIDE 0.9% IV 1,000 ML 999 ML IV CONT ×2 (17:44)
[2024-04-16 18:43] VITALS: BP 114/71; PULSE 80; RESP 16; O2SAT 99
[2024-04-16 19:46] LABS: Appearance Urine Turbid (Clear); Bacteria Urine None Seen /hpf; Bilirubin Urine 1+ (Negative); Blood Urine Negative (Negative); Calcium Oxalate Crystals Urine Present /hpf; Color Urine Dark Yellow (Yellow); Glucose Urine UA Negative (Negative); Ketones Urine Negative (Negative); Leukocyte Esterase Ur Trace LEU/UL (Negative); Need Manual Microscopic Reviewed; Nitrate Urine Negative (Negative); Non Pathogenic Casts >20; Protein Urine 1+ mg/dL (Negative); Specific Grav Ur 1.015 (1.001-1.035); Squamous Epithelial Cell Urine None Seen /hpf (Few); WBC Urine 0-5 /hpf (0-3); pH Urine 5.5 (5.0-9.0)
[2024-04-16 19:47] LABS: Add Urine Microscopic? YES
[2024-04-16 20:15] VITALS: BP 144/65; PULSE 101; RESP 18; TEMP 36.2; O2SAT 97
--- NOTE | 2024-04-16 21:07 | PM.IMHP ---
H&P: HPI History of Present Illness Date/Time: 04/16/24 21:07 Chief Complaint: Abdominal Distention, Shortness of Breath Narrative: 78 y/o M presents here with abdominal pain with PMH of metastatic cancer of unknown origin, diabetes, glaucoma, and hypertension. The patient presents here for further care of abdominal distention and shortness of breath. First noted increased abdominal swelling 2-2.5 weeks ago (2 weeks post paracentesis). Shortness of breath started insidiously over the last few days. Has been less active in the last 2 weeks and now has small sore to coccyx region from breakdown. No associated chest pain, cough, congestion, fever or chills. Intentionally lost 25 lbs and then unintentionally lost 11 lbs in 2 months. No night sweats or easy bruising. Per chart review, patient initially presented to his PCP on 03/02/2024 with increased stomach pain, gas, and indigestion. CT scan of the abdomen/pelvis was performed on 03/10 which showed ascites, lymphadenopathy of the chest and abdomen consistent with metastatic disease, mass abutting the hilum of the liver the head of the pancreas, and gallbladder distension. Patient had paracentesis performed on March 15 - 1.1L, red fluid. PET scan done on March 16 - lymphadenopathy in chest, abdomen, pelvis with peritoneal nodularity concerning for lymphoma and there was a small pleural effusion and moderate volume ascites. Had biopsy performed on March 28, 2024 -low ciliary specimen with no evidence of monoclonal B-cell population. [employer] testing ordered by oncology team, therapy treatment based upon results. May need excisional biopsy of the left supraclavicular lymph node. Suspecting biliary tract cancer versus gallbladder cancer due to elevated liver enzymes and ascites. Also waiting MediPort placement prior to chemo. Initial VS at presentation: That 7.2? F, HR 104, RR 20, 138/67, and 98% on RA. ED workup showed: WBC 11.1, hemoglobin 12.5, INR 1.1, sodium 128, creatinine 2.9 and GFR 21 (previously 1.0 and GFR >60), glucose 161, calcium 30.1, total bilirubin 2.6, AST 100, ALT 64, alk-phos 899, lipase 104. UA showed turbid, 1+ protein, 1+ bilirubin, trace leuks, 11-[address] of the abd/pelvis showed a right upper quadrant mass at the head of the pancreas/hilum of the liver, multiple hepatic masses suspicious for metastatic disease, and thoracic and upper abdominal lymphadenopathy or. Moderate ascites. Review of Systems Review of Systems: All systems reviewed & are unremarkable except as noted in HPI and below PMFSH Past Medical History Medical History COVID-30 October 2020 Diabetes Glaucoma Hypertension Metastatic carcinoma Surgical History Surgical History H/O cataract removal with insertion of prosthetic lens Family History Family History Father Heart disease Social History Social History Smoking status: Never smoker Alcohol intake: never Substance use: never Do You Feel Safe in your Home?: Yes Lack of Transportation: No Lack of Food: Never True Current Housing: I Have Housing Concerned About Future Housing: No Difficulty Paying Gas/Electric Bills: No Difficulty Paying for Meds: No Currently Unemployed: No Education: Trade/Vocational Certificate Difficulty w/ Childcare or Family Care: No Spiritual care concerns: No Meds Home Medications and Allergies Home Medications Medication Instructions Recorded Confirmed Type latanoprost 0.005 % eye drops 1 drp LEFT EYE DAILY 06/29/22 04/16/24 History timolol maleate 0.5 % eye drops 1 drp EACH EYE BID 06/29/22 04/16/24 History metformin 500 mg tablet 500 mg PO BID #180 tabs 09/17/23 04/16/24 Rx furosemide 40 mg tablet 40 mg PO DAILY 04/16/24 04/16/24 History sitag
[2024-04-16 21:21] LABS: Uric Acid 13.6 mg/dL (3.5-8.5)
[2024-04-16 21:31] LABS: Glucose Point of Care 156 mg/dl (65-105)
--- NOTE | 2024-04-16 22:31 | ADMGEN ---
This patient, Ken Hall, was admitted to [address] [place] [address] Room 300-01 at 2007. Patient/family oriented to hospital policies and general routines including ID bracelet, bed and alarms, visiting hours, pain management, procedures, bathroom and other care routines, personal items, smoking policy, room service/diet, and visiting hours. Information on how to activate the Rapid Response Team has been discussed. Patient/Family are encouraged to report perceived risks to care and to ask questions if they do not understand what they are told or what they should do.
[2024-04-16 23:38] LABS: Creatine Kinase 36 U/L (55-170); Phosphorus 4.4 mg/dL (2.5-4.5)
[2024-04-16 23:48] LABS: NT Pro B Type Natriuretic Pept 602 pg/mL (19.9-100)
[2024-04-16 23:57] LABS: Parathyroid Intact 12.4 pg/mL (7.5-53.5)
[2024-04-17] MEDS: SODIUM CHLORIDE 0.9% IV 1,000 ML 100 ML IV CONT ×3 (00:13→20:32)
[2024-04-17 00:29] LABS: Creatinine Urine 95.5 mg/dL
[2024-04-17 00:49] LABS: Creatinine Urine 96.2 mg/dL; Total Protein Urine Random 48 mg/dL
[2024-04-17 00:50] LABS: Sodium Urine Random 29 meq/L
[2024-04-17 04:35] VITALS: BP 139/70; PULSE 101; RESP 18; TEMP 36.2; O2SAT 98
[2024-04-17 06:19] LABS: Basophils Percent Auto 0.4 % (0.2-1.2); Eosinophils Absolute Auto 0.1 K/mm3 (0-0.3); Eosinophils Percent Auto 0.9 % (0-4.4); Hemoglobin 12.5 g/dL (14.0-18.0); Immature Granulocyte Absolute 0.09 K/mm3 (0.00-0.031); Immature Granulocyte Percent A 0.9 % (0-0.5); Lymphocytes Absolute Auto 0.93 K/mm3 (0.9-3.2); Lymphocytes Percent Auto 9.1 % (18.3-44.2); Mean Corpuscular HGB Conc 32.9 g/dl (32-36); Mean Corpuscular Hemoglobin 29.8 pg (26-34); Mean Corpuscular Volume 90.7 fl (80-100); Monocytes Absolute Auto 0.9 K/mm3 (0.1-0.6); Monocytes Percent Auto 8.5 % (2.6-8.5); Neutrophils Absolute Auto 8.2 K/mm3 (1.3-6.7); Neutrophils Percent Auto 80.2 % (45.5-73.1); Platelet Count Result 316 k/mm3 (150-375); Red Blood Count 4.19 M/mm3 (4.6-6.20); Red Cell Distribution Width 14.1 % (11.5-14.5); White Blood Count 10.2 K/mm3 (4.5-10.0)
[2024-04-17 06:49] LABS: Alanine Aminotransferase 66 U/L (6-50); Albumin Level 3.5 g/dL (3.5-5.1); Alkaline Phosphatase 885 U/L (38-126); Anion Gap 7 mmol/L (4-12); Aspartate Amino Transferase 110 U/L (17-59); Bilirubin,Total 2.9 mg/dL (0.2-1.3); Blood Urea Nitrogen 61 mg/dL (9-20); Calcium 12.7 mg/dL (8.4-10.2); Carbon Dioxide 32 mmol/L (22-30); Chloride 91 mmol/L (98-107); Estimated CRCL calculation 25 ml/min; Estimated Glomerular Filt Rate 21; Glucose 137 mg/dL (65-110); Magnesium 2.1 mg/dL (1.6-2.3); Phosphorus 4.3 mg/dL (2.5-4.5); Potassium 4.5 mmol/L (3.4-5.0); Sodium 130 mmol/L (137-145)
--- NOTE | 2024-04-17 07:51 | PM.IMPN ---
Progress Note: A&P Assessment and Plan (1) Metastatic carcinoma: Code(s): C79.9 - Secondary malignant neoplasm of unspecified site Status: Acute Assessment and Plan: - CT abd/pelvis (04/16/24): Right upper quadrant mass at the head of the pancreas/hilum of the liver. Multiple hepatic masses suspicious for metastatic disease. Thoracic and upper abdominal lymphadenopathy. Peritoneal. Moderate ascites. - established with Luci PFEIFFER. workup in process to identify type of cancer. oncology consulted. - per last onc note on 04/04/24, plan for: [employer] Nex[employer] testing ordered by oncology team, therapy treatment based upon results. May need excisional biopsy of the left supraclavicular lymph node. Suspecting biliary tract cancer versus gallbladder cancer due to elevated liver enzymes and ascites. Also waiting MediPort placement prior to chemo. - uric acid 13.6, K 4.9, calcium 13.1, and awaiting phos level - pain medication prn - care coordination consulted: Acute rehab consult, advance directives, and fpc placement (2) Ascites, malignant: Code(s): R18.0 - Malignant ascites Status: Acute Assessment and Plan: - last paracentesis on 03/15 - 1100 mL of red fluid - nondiagnostic paracentesis ordered-today or tomorrow (3) Acute renal failure: Qualifiers: Acute renal failure type: unspecified Qualified Code(s): N17.9 - Acute kidney failure, unspecified Code(s): N17.9 - Acute kidney failure, unspecified Status: Acute Assessment and Plan: - creatinine 2.90 and GFR 21 - previously 1.0 and GFR >60 on 03/15/2024 - no prior hx of CKD - nephrology consulted - add CK, urine sodium, protein/creatinine - UA: turbid, 1+ protein, 1+ bilirubin, trace leuks, 11-20 RBC. - hold lasix 40 mg PO daily - monitor I&Os - trend renal function - nephrology consulted (4) Shortness of breath: Code(s): R06.02 - Shortness of breath Status: Acute Assessment and Plan: - EKG, initial: Sinus rhythm, left axis deviation, RBBB, high lateral infarct age indeterminate, baseline artifact. No previous available for comparison. - CXR ordered - BNP ordered - suspect shortness of breath related to worsening ascites - monitor (5) Hyponatremia: Code(s): E87.1 - Hypo-osmolality and hyponatremia Status: Acute Assessment and Plan: - Na 128, previously 136 on 03/15/2024 - add serum osmolality, urine osmolality, urine sodium, protein to creatinine ratio, urine creatinine - trend electrolytes - nephrology consulted (6) Hypercalcemia: Code(s): E83.52 - Hypercalcemia Status: Acute Assessment and Plan: - Ca 13.1 - repeat w/ionized calcium, add intact PTH - IV fluids: 2L bolus, 100 mL/hr - trend (7) Transaminitis: Code(s): R74.01 - Elevation of levels of liver transaminase levels Status: Acute Assessment and Plan: - per oncology notes, suspected source of cancer is biliary tract cancer versus gallbladder cancer given the transaminitis - trend (8) Type 2 diabetes mellitus: Qualifiers: Diabetes mellitus complication status: without complication Diabetes mellitus extermination supervisor insulin use: without chcf use Qualified Code(s): E11.9 - Type 2 diabetes mellitus without complications Code(s): E11.9 - Type 2 diabetes mellitus without complications Status: Acute Assessment and Plan: - hypoglycemia protocol - POC blood glucose ACHS - home medication: Hold metformin. Continue Januvia. - correct regimen ordered - low dose TIDWM and HS - A1C 6.5% on 12/21/2023 (9) Hypertension: Qualifiers: Hypertension type: primary hypertension Qualified Code(s): I10 - Essential (primary) hypertension Code(s): I10 - Essential (primary) hypertension Status: Acute Assessment and Plan: - chronic, currently 144/65 - no home blood pressure medica
[2024-04-17 08:05] LABS: Glucose Point of Care 136 mg/dl (65-105)
--- NOTE | 2024-04-17 08:59 | PM.CNNEP ---
Assessment and Plan Assessment and plan (1) Acute kidney injury: Code(s): N17.9 - Acute kidney failure, unspecified Status: Acute Assessment and Plan: the patient has acute kidney injury. His baseline creatinine is normal. Now it is up to 2.9. I suspect that the patient has renal failure due to prerenal factors. It looks like he has 3rd spacing into the belly because the malignant disease into the legs because of the liver issue as well. He has been taking furosemide to try to get rid of the swelling but this leads to further pre renal factors and the higher creatinine. There are other possibilities as well. Vascular disease, Rhabdomyolysis l ( but CK is normal ), glomerulonephritis (he has a little protein but no blood), obstruction (CT neg), interstitial disease (no rash or eosinophilia) are all possibilities as well but less likely.. will check a renal ultrasound, fractional excretion of urea. Will continue IV fluids and continue holding the diuretics. (2) Type 2 diabetes mellitus: Qualifiers: Diabetes mellitus local intermodal truck driver insulin use: without local intermodal truck driver use Diabetes mellitus complication status: without complication Qualified Code(s): E11.9 - Type 2 diabetes mellitus without complications Code(s): E11.9 - Type 2 diabetes mellitus without complications Status: Acute Assessment and Plan: the patient is on metformin. This was discontinued. His bicarbonate level and anion gap are okay. (3) Hypertension: Qualifiers: Hypertension type: primary hypertension Qualified Code(s): I10 - Essential (primary) hypertension Code(s): I10 - Essential (primary) hypertension Status: Acute Assessment and Plan: Blood pressure is under good control (4) Metastatic disease: Qualifiers: Area of secondary neoplastic involvement: unspecified site Qualified Code(s): C79.9 - Secondary malignant neoplasm of unspecified site Code(s): C79.9 - Secondary malignant neoplasm of unspecified site Status: Acute Assessment and Plan: evaluation is underway (5) Transaminitis: Code(s): R74.01 - Elevation of levels of liver transaminase levels Status: Acute Assessment and Plan: liver enzymes high likely due to liver Mets (6) Edema: Code(s): R60.9 - Edema, unspecified Status: Acute Assessment and Plan: check venous Dopplers, and an echocardiogram shows nothing else causing the swelling. History of Present Illness Reason for Consult Consult date: 04/17/24 Chief Complaint Chief complaint: Metastatic disease, Ascites, ARF, Hypercalcemia, H History of Present Illness Narrative: Ken is a very pleasant 78-year-old gentleman who has multiple medical problems including diabetes, glaucoma, hypertension, and metastatic cancer. A few weeks ago he was found to have the metastatic cancer. This was evaluated because of shortness of breath and weight loss along with abdominal distension. CT scan in February showed ascites lymphadenopathy and liver masses. Paracentesis and PET scan all were consistent with metastatic cancer. His evaluation by Oncology is underway so no chemotherapy has been started yet. The patient has had swelling and abdominal distension. He has not been eating or drinking very well. A week ago he was started on some Lasix to try to get rid of the swelling. The Lasix helped a little bit but the abdomen continued to swell more so he came to the ER. In the ER he was found to have a higher than usual creatinine. He was admitted. His metformin and furosemide were discontinued and he was given some IV fluids overnight. He feels a little better today but he still has the abdominal distension. He is hoping for paracentesis today. The patient does not have any bloody cloudy smelly or foamy urine. He is not taking any nonsteroidal anti-inflammatory agents. He is not on any [id number] m
[2024-04-17] MEDS: SITagliptin PHOSPHATE 100 MG TABLET PO (09:58)
[2024-04-17] MEDS: TIMOLOL MALEATE 0.5% OP SOLN 5 ML BOTTLE 1 DROP EACH EYE ×2 (09:59→20:32)
[2024-04-17] MEDS: LATANOPROST 0.005% OP SOLN 2.5 ML BTL 1 DROP LEFT EYE (09:59)
[2024-04-17] MEDS: PANTOPRAZOLE SODIUM IV 40 MG VIAL IV PUSH (10:01)
[2024-04-17 11:59] LABS: Glucose Point of Care 139 mg/dl (65-105)
[2024-04-17 14:00] VITALS: BP 129/66; PULSE 96; RESP 16; TEMP 36.6; O2SAT 98
[2024-04-17 16:52] LABS: Creatinine Urine 103.5 mg/dL; Total Protein Urine Random 35 mg/dL; Ur Ttl Prot Creatinine Ratio 0.34 mg/mg (0-0.20); Urea Random Urine 787 MG/DL
[2024-04-17 17:03] LABS: Glucose Point of Care 99 mg/dl (65-105)
--- NOTE | 2024-04-17 17:21 | PC.NURSE ---
On 04/17/24, the LOAN CLOSER, [Latanya Mooney ], provided care and completed [facility] documentation on this patient. I have reviewed the LOAN CLOSER's documentation and agree with the findings.
[2024-04-17 20:23] LABS: Glucose Point of Care 117 mg/dl (65-105)
[2024-04-17 20:59] VITALS: BP 140/67; PULSE 101; RESP 14; TEMP 36.3; O2SAT 98
[2024-04-18 05:20] VITALS: BP 137/65; PULSE 98; RESP 12; TEMP 36.1; O2SAT 97
[2024-04-18] MEDS: SODIUM CHLORIDE 0.9% IV 1,000 ML 100 ML IV CONT ×2 (06:30→21:01)
[2024-04-18 07:32] LABS: Glucose Point of Care 108 mg/dl (65-105)
--- NOTE | 2024-04-18 07:42 | PM.IMPN ---
Progress Note: A&P Assessment and Plan (1) Metastatic carcinoma: Code(s): C79.9 - Secondary malignant neoplasm of unspecified site Status: Acute Assessment and Plan: - CT abd/pelvis (04/16/24): Right upper quadrant mass at the head of the pancreas/hilum of the liver. Multiple hepatic masses suspicious for metastatic disease. Thoracic and upper abdominal lymphadenopathy. Peritoneal. Moderate ascites. - established with Luci PFEIFFER. workup in process to identify type of cancer. oncology consulted. - per last onc note on 04/04/24, plan for: [employer] Nex[employer] testing ordered by oncology team, therapy treatment based upon results. May need excisional biopsy of the left supraclavicular lymph node. Suspecting biliary tract cancer versus gallbladder cancer due to elevated liver enzymes and ascites. Also waiting MediPort placement prior to chemo. - uric acid 13.6, K 4.9, calcium 13.1, and awaiting phos level - pain medication prn - care coordination consulted: Acute rehab consult, advance directives, and prison placement - oncology saw him today- following (2) Ascites, malignant: Code(s): R18.0 - Malignant ascites Status: Acute Assessment and Plan: - last paracentesis on 03/15 - 1100 mL of red fluid - nondiagnostic paracentesis ordered-today or tomorrow 04/18- para completed today (3) Acute renal failure: Qualifiers: Acute renal failure type: unspecified Qualified Code(s): N17.9 - Acute kidney failure, unspecified Code(s): N17.9 - Acute kidney failure, unspecified Status: Acute Assessment and Plan: - creatinine 2.90 and GFR 21 - previously 1.0 and GFR >60 on 03/15/2024 - no prior hx of CKD - nephrology consulted - add CK, urine sodium, protein/creatinine - UA: turbid, 1+ protein, 1+ bilirubin, trace leuks, 11-20 RBC. - hold lasix 40 mg PO daily - monitor I&Os - trend renal function - nephrology consulted- following (4) Shortness of breath: Code(s): R06.02 - Shortness of breath Status: Acute Assessment and Plan: - EKG, initial: Sinus rhythm, left axis deviation, RBBB, high lateral infarct age indeterminate, baseline artifact. No previous available for comparison. - CXR ordered - BNP ordered - suspect shortness of breath related to worsening ascites - monitor 04/18 better since paracentesis compelled (5) Hyponatremia: Code(s): E87.1 - Hypo-osmolality and hyponatremia Status: Acute Assessment and Plan: - Na 128, previously 136 on 03/15/2024 - add serum osmolality, urine osmolality, urine sodium, protein to creatinine ratio, urine creatinine - trend electrolytes - nephrology consulted- following - appreciate recommendations (6) Hypercalcemia: Code(s): E83.52 - Hypercalcemia Status: Acute Assessment and Plan: - Ca 13.1 - repeat w/ionized calcium, add intact PTH - IV fluids: 2L bolus, 100 mL/hr - trend (7) Transaminitis: Code(s): R74.01 - Elevation of levels of liver transaminase levels Status: Acute Assessment and Plan: - per oncology notes, suspected source of cancer is biliary tract cancer versus gallbladder cancer given the transaminitis - trend (8) Type 2 diabetes mellitus: Qualifiers: Diabetes mellitus complication status: without complication Diabetes mellitus penitentiary insulin use: without superintendent marine oil terminal use Qualified Code(s): E11.9 - Type 2 diabetes mellitus without complications Code(s): E11.9 - Type 2 diabetes mellitus without complications Status: Acute Assessment and Plan: - hypoglycemia protocol - POC blood glucose ACHS - home medication: Hold metformin. Continue Januvia. - correct regimen ordered - low dose TIDWM and HS - A1C 6.5% on 12/21/2023 (9) Hypertension: Qualifiers: Hypertension type: primary hypertension Qualified Code(s): I10 - Essential (primary) hypertension Code(s): I10
[2024-04-18] MEDS: PANTOPRAZOLE SODIUM IV 40 MG VIAL IV PUSH (08:18)
[2024-04-18] MEDS: LATANOPROST 0.005% OP SOLN 2.5 ML BTL 1 DROP LEFT EYE (08:18)
[2024-04-18] MEDS: TIMOLOL MALEATE 0.5% OP SOLN 5 ML BOTTLE 1 DROP EACH EYE ×2 (08:18→20:22)
--- NOTE | 2024-04-18 09:10 | ECHO_ITS ---
Patient Info Name: Ken Hall Age: 78 years : 1945 Gender: Male Ht: 73 in Wt: 239 lbs BSA: 2.39 m2 HR: 98 bpm BP: 137 / 65 mmHg Heart Rhythm: Sinus Rhythm Technical Quality: Fair Exam Date: 04/18/2024 10:15 AM Exam Location: Echo Lab Patient Status: Inpatient Admit Date: 04/17/2024 Staff Ordering Physician: Doyle Gramajo MD Clinical Applications Manager: Ashley Milligan RDCS Attending Provider: Amandeep Baltazar MD Referring Physician: Avila DRISCOLL; Exam Type: CA echo dop color flow w con Study Info Indications - edema, cancer Complete two-dimensional, color flow and Doppler transthoracic echocardiogram is performed with contrast to opacify the left ventricle and to improve the deliniation of the left ventricle endocardial borders. Contrast/Agitated Saline Contrast/Ag. Saline: Definity Amount: 2.00 ml Administered By: Ashley Milligan RDCS Existing IV Access: Yes IV Access Condition: patent with no signs of infiltration Summary 1. Left ventricular chamber dimension is normal. 2. Left ventricular systolic function is normal, estimated at 65-70%. 3. There is moderate asymmetric septal increased left ventricular wall thickness. 4. The left ventricular diastolic function is grade I diastolic dysfunction. 5. Right ventricular chamber dimension is mildly enlarged. 6. Left atrial chamber dimension is mildly enlarged. 7. There is mild mitral valve regurgitation. 8. There is mild tricuspid valve regurgitation. Left Ventricle Left ventricular chamber dimension is normal. Left ventricular systolic function is normal, estimated at 65-70%. There is moderate asymmetric septal increased left ventricular wall thickness. The left ventricular diastolic function is grade I diastolic dysfunction. Right Ventricle Right ventricular chamber dimension is mildly enlarged. Right ventricular systolic function is normal. Left Atria Left atrial chamber dimension is mildly enlarged. Right Atria Right atrial chamber dimension is normal. Atrial Septum Intact interatrial septum visualized by color flow imaging. Aortic Valve The aortic valve is trileaflet. There is mild aortic valve sclerosis. There is no aortic valve stenosis. There is trace aortic valve regurgitation. Pulmonic Valve The pulmonic valve is normal. There is no pulmonic valve stenosis. There is trace pulmonic regurgitation. Mitral Valve The mitral valve has normal leaflets. There is no mitral valve stenosis. There is mild mitral valve regurgitation. Tricuspid Valve The tricuspid valve leaflets are normal. There is no significant tricuspid valve stenosis. There is mild tricuspid valve regurgitation. No pulmonary hypertension, estimated pulmonary arterial systolic pressure is 34 mmHg. Pericardium/Pleural The pericardium appears normal. There is no pericardial effusion. Inferior Vena Cava Normal inferior vena cava with >50% collapse upon inspiration consistent with normal right atrial pressure, 10 mmHg. Aorta The aortic root size at the sinus of Valsalva is normal. Left Ventricular Outflow Tract Name Value Normal LVOT 2D LVOT Diameter 2.34 cm LVOT Doppler LVOT Peak Gradient
[2024-04-18 09:31] LABS: Basophils Absolute Auto 0.1 K/mm3 (0.0-0.1); Basophils Percent Auto 0.4 % (0.2-1.2); Eosinophils Absolute Auto 0.1 K/mm3 (0-0.3); Hematocrit 37.7 % (42.0-52.0); Hemoglobin 12.2 g/dL (14.0-18.0); Immature Granulocyte Absolute 0.11 K/mm3 (0.00-0.031); Immature Granulocyte Percent A 0.9 % (0-0.5); Lymphocytes Absolute Auto 1.06 K/mm3 (0.9-3.2); Lymphocytes Percent Auto 8.9 % (18.3-44.2); Mean Corpuscular HGB Conc 32.4 g/dl (32-36); Mean Corpuscular Hemoglobin 29.8 pg (26-34); Mean Platelet Volume 9.8 fl (7.4-10.4); Monocytes Percent Auto 8.1 % (2.6-8.5); Neutrophils Absolute Auto 9.6 K/mm3 (1.3-6.7); Neutrophils Percent Auto 80.7 % (45.5-73.1); Platelet Count Result 370 k/mm3 (150-375); Red Cell Distribution Width 14.2 % (11.5-14.5)
[2024-04-18 09:42] LABS: Iron 38 ug/dL (49-181)
[2024-04-18 09:46] LABS: Alanine Aminotransferase 63 U/L (6-50); Albumin Level 3.4 g/dL (3.5-5.1); Alkaline Phosphatase 824 U/L (38-126); Anion Gap 10 mmol/L (4-12); Aspartate Amino Transferase 89 U/L (17-59); Bilirubin,Total 2.8 mg/dL (0.2-1.3); Blood Urea Nitrogen 62 mg/dL (9-20); Calcium 12.3 mg/dL (8.4-10.2); Carbon Dioxide 26 mmol/L (22-30); Chloride 93 mmol/L (98-107); Estimated CRCL calculation 23 ml/min; Estimated Glomerular Filt Rate 18; Glucose 107 mg/dL (65-110); Potassium 4.8 mmol/L (3.4-5.0); Sodium 129 mmol/L (137-145)
[2024-04-18 09:52] LABS: Percent Iron Saturation 17 % (20-50)
--- NOTE | 2024-04-18 10:10 | P.PNNP_ITS ---
Progress Note: A&P Assessment and Plan (1) Acute kidney injury: Code(s): N17.9 - Acute kidney failure, unspecified Status: Acute Assessment and Plan: * normal creatinine at baseline * admission creatinine noted at 2.9mg/dl * suspect 3rd spacing of fluid into abdomen and LEs from underlying malignancy resulting in prerenal azotemia likely worsened by the use of diuretic therapy * evaluation to date: * normal renal ultrasound * CPK okay * urine electroltyes pre-renal * mild proteinuria * continue trial of IVFs * diuretics on hold * follow trend of repeat labs and UOP (2) Hyponatremia: Code(s): E87.1 - Hypo-osmolality and hyponatremia Status: Acute Assessment and Plan: * presumably related to BEVERLY/ARF and fluid retention * cannot discount malignancy playing a role as well * follow trend for now (3) Edema: Code(s): R60.9 - Edema, unspecified Status: Acute Assessment and Plan: * no DVTs by venous dopplers * Echo pending * suspect secondary to 3rd spacing from underlying malignancy * leg elevation and compression/NEDRA wraps for now * holding diuretis due to #1 (4) Hypercalcemia: Code(s): E83.52 - Hypercalcemia Status: Acute Assessment and Plan: * elevated on admission * mild improvement with IVFs * possibley related to malignancy * follow trend (5) Ascites, malignant: Code(s): R18.0 - Malignant ascites Status: Acute Assessment and Plan: * paracentesis today * secondary to underlying malignancy * likely contributing to abdominal discomfort and shortness of breath (6) Hypertension: Qualifiers: Hypertension type: primary hypertension Qualified Code(s): I10 - Essential (primary) hypertension Code(s): I10 - Essential (primary) hypertension Status: Chronic Assessment and Plan: * reasonable control * follow trend of hemodynamics (7) Metastatic carcinoma: Code(s): C79.9 - Secondary malignant neoplasm of unspecified site Status: Acute Assessment and Plan: * evaluation noted to date * primary source not clear but suspicion falls on biliary tract versus gallbladder given associated transaminitis * Hem/Onc following (8) Type 2 diabetes mellitus: Qualifiers: Diabetes mellitus chcf insulin use: without vice president for philanthropy use Diabetes mellitus complication status: without complication Qualified Code(s): E11.9 - Type 2 diabetes mellitus without complications Code(s): E11.9 - Type 2 diabetes mellitus without complications Status: Acute Assessment and Plan: * follow accu-cheks * glycemic control per hospitalists Will continue to follow. Subjective Date/time seen: 04/18/24 10:10 Interval history: Follow-up for acute kidney injury/acute renal failure. Chart reviewed - assuming care from Dr. Gramajo; no real significant improvement in renal function in the last 24 hours, still making urine; still feeling uncomfortable related to abdominal distension -- scheduled for paracentesis this afternoon. Exam Narrative: General: mildly ill-appearing Caucasin male in NAD Heart: normal S1 and S2; no rub Lungs: clear anteriorly; decreased at bases Abdomen: soft, +TTP; ++ distension; positive bowel sounds Extremities: no cyanosis or clubbing; 2 - 3+ edema Skin: warm and dry Objective Data Vital Signs Vital Signs:
--- NOTE | 2024-04-18 10:10 | PM.PNNEP ---
Progress Note: A&P Assessment and Plan (1) Acute kidney injury: Code(s): N17.9 - Acute kidney failure, unspecified Status: Acute Assessment and Plan: normal creatinine at baseline admission creatinine noted at 2.9mg/dl suspect 3rd spacing of fluid into abdomen and LEs from underlying malignancy resulting in prerenal azotemia likely worsened by the use of diuretic therapy evaluation to date: normal renal ultrasound CPK okay urine electroltyes pre-renal mild proteinuria continue trial of IVFs diuretics on hold follow trend of repeat labs and UOP (2) Hyponatremia: Code(s): E87.1 - Hypo-osmolality and hyponatremia Status: Acute Assessment and Plan: presumably related to BEVERLY/ARF and fluid retention cannot discount malignancy playing a role as well follow trend for now (3) Edema: Code(s): R60.9 - Edema, unspecified Status: Acute Assessment and Plan: no DVTs by venous dopplers Echo pending suspect secondary to 3rd spacing from underlying malignancy leg elevation and compression/NEDRA wraps for now holding diuretis due to #1 (4) Hypercalcemia: Code(s): E83.52 - Hypercalcemia Status: Acute Assessment and Plan: elevated on admission mild improvement with IVFs possibley related to malignancy follow trend (5) Ascites, malignant: Code(s): R18.0 - Malignant ascites Status: Acute Assessment and Plan: paracentesis today secondary to underlying malignancy likely contributing to abdominal discomfort and shortness of breath (6) Hypertension: Qualifiers: Hypertension type: primary hypertension Qualified Code(s): I10 - Essential (primary) hypertension Code(s): I10 - Essential (primary) hypertension Status: Chronic Assessment and Plan: reasonable control follow trend of hemodynamics (7) Metastatic carcinoma: Code(s): C79.9 - Secondary malignant neoplasm of unspecified site Status: Acute Assessment and Plan: evaluation noted to date primary source not clear but suspicion falls on biliary tract versus gallbladder given associated transaminitis Hem/Onc following (8) Type 2 diabetes mellitus: Qualifiers: Diabetes mellitus fpc insulin use: without fpc use Diabetes mellitus complication status: without complication Qualified Code(s): E11.9 - Type 2 diabetes mellitus without complications Code(s): E11.9 - Type 2 diabetes mellitus without complications Status: Acute Assessment and Plan: follow accu-cheks glycemic control per hospitalists Will continue to follow. Subjective Date/time seen: 04/18/24 10:10 Interval history: Follow-up for acute kidney injury/acute renal failure. Chart reviewed - assuming care from Dr. Gramajo; no real significant improvement in renal function in the last 24 hours, still making urine; still feeling uncomfortable related to abdominal distension -- scheduled for paracentesis this afternoon. Exam Narrative: General: mildly ill-appearing Caucasin male in NAD Heart: normal S1 and S2; no rub Lungs: clear anteriorly; decreased at bases Abdomen: soft, +TTP; ++ distension; positive bowel sounds Extremities: no cyanosis or clubbing; 2 - 3+ edema Skin: warm and dry Objective Data Vital Signs Vital Signs: Vital Signs Temp Pulse Resp BP Pulse Ox O2 Del Method 04/18/24 09:29 Room Air 04/18/24 08:15 Room Air 04/18/24 05:20 96.9 F L 98 12 137/65 97 04/17/24 20:59 97.3 F L 101 H 14 140/67 98 04/17/24 14:00 97.9 F 96 16 129/66 98 Intake/Output Intake/Output: Intake & Output 04/15/24 04/16/24 04/17/24 04/18/24 23:59 23:59 23:59 23:59 Intake Total 2066.6 3116.7 1746.7 Output Total 50 5000 Balance 2066.6 3066.7 -3253.3 Meds/Results Medications: Active Medications Generic Name Dose Route Start Last
[2024-04-18] MEDS: PERFLUTREN LIPID MICROSPHERES 1.5 ML VIAL DILUTED TO 10 ML TOTAL VOLUME IV PUSH (11:00)
[2024-04-18 11:25] LABS: Glucose Point of Care 113 mg/dl (65-105)
[2024-04-18 11:28] VITALS: BMI 33.0
--- NOTE | 2024-04-18 11:38 | PDONCCN ---
HPI - Date of Consult Date/Time: 04/18/24 19:05 <Ace Verma - 04/18/24 19:09> 04/18/24 11:38 <BrandonNikki - 04/18/24 11:45> Requesting Physician: Cali Baltazar MD <Ace Verma - 04/18/24 19:09> Cali Baltazar MD <BrandonNikki - 04/18/24 11:45> Primary Care Provider: Loreto Guzman APRN <Ace Verma - 04/18/24 19:09> Loreto Guzman APRN <Nikki Taylor - 04/18/24 11:45> - Consult Narrative Reason for consult: Metastatic adenocarcinoma <BrandonNikki - 04/18/24 11:45> Narrative: Ken Hall is a 78 year old male <Luci,Acefefie Bradley - 04/18/24 19:09> Ken Hall is a 78 year old male with a past medical history of DM, HTN, glaucoma, and a new diagnosis of metastatic adenocarcinoma of unknown primary site. Tempus testing has been sent for evaluation as well. There is concern for biliary tract cancer versus gallbladder cancer d/t elevated liver enzymes. He reports being admitted for worsening shortness of breath, and abdominal pain. He also reports a poor appetite as well. Paracentesis have wilfred ordered. Labs today are notable for WBC 12 Hgb 12 Hct 37 Plt 370. <BrandonNikki - 04/18/24 11:45> Review of Systems - Review of Systems All systems reviewed & are unremarkable except as noted in HPI and bel <Nikki Taylor - 04/18/24 11:45> - Neurologic Reports system reviewed and no additional complaints, except as documented <BrandonNikki - 04/18/24 11:45> [facility] Medical History: Medical History (Last Reviewed 04/17/24 @ 08:59 by Doyle Gramajo MD) COVID-30 October 2020 Diabetes Glaucoma Hypertension Metastatic carcinoma <Ace Verma - 04/18/24 19:09> Medical History (Last Reviewed 04/17/24 @ 08:59 by Doyle Gramajo MD) COVID-30 October 2020 Diabetes Glaucoma Hypertension Metastatic carcinoma <Steve Taylorne - 04/18/24 11:45> Surgical History: Surgical History (Last Reviewed 04/17/24 @ 08:59 by Doyle Gramajo MD) H/O cataract removal with insertion of prosthetic lens <Luci,Aceeffie Bradley - 04/18/24 19:09> Surgical History (Last Reviewed 04/17/24 @ 08:59 by Doyle Gramajo MD) H/O cataract removal with insertion of prosthetic lens <BharateugeneNikki - 04/18/24 11:45> Family History: Family History (Last Reviewed 04/17/24 @ 08:59 by Doyle Gramajo MD) Father Heart disease <Ace Verma - 04/18/24 19:09> Family History (Last Reviewed 04/17/24 @ 08:59 by Doyle Gramajo MD) Father Heart disease <BharatNikki knight - 04/18/24 11:45> - Social History Social History: Social History (Last Reviewed 04/17/24 @ 08:59 by Doyle Gramajo MD) Alcohol Use: Alcohol intake: never Substance Use: Substance use: never Others: Spiritual care concerns: No Smoking Status: Smoking status: Never smoker Social Determinants of Health: Do You Feel Safe in your Home?: Yes Has the Lack of Transportation Kept You From Medical Appointments or From Getting Medications?: No Within the Past 12 Months, Were You Worried Whether Your Food Would Run Out Before You Got Money to Buy More?: Never True What is Your Housing Situation Today?: I Have Housing Are You Worried That in the Next 2 Months, You May Not Have Your Own Housing to Live In?: No Do You Have Trouble Paying Your Heating Or Electricity Bill?: No Do You Have Trouble Paying For Medicines?: No Are You Currently Unemployed and Looking for Work?: No Highest Level of Education Completed: Trade/Vocational Certific Do You Have Trouble With Childcare or the Care of a Family Member?: No <Ace Verma - 04/18/24 19:09> Social History (Last Reviewed 04/17/24 @ 08:59 by Doyle Gramajo MD) Alcohol Use: Alcohol intake: never Substance Use: Substance use: never
--- NOTE | 2024-04-18 12:12 | IVDEFINITY ---
Prior to administration of IV Definity the patient was educated on the risks and benefits of the imaging enhancing agent including potential adverse side effects. The patient verbalized understanding. Allergies were verified. No exclusion criteria were identified and at least one of the following inclusion criteria were met: 1) physician request, 2) patient technically difficult to image (per the [place] [employer] guidelines of two or more segments not discernable within the apical view), or 3) questionable left ventricular function. ?
[2024-04-18] MEDS: SITagliptin PHOSPHATE 100 MG TABLET PO (12:38)
[2024-04-18] MEDS: IRON SUCROSE COMPLEX 400 MG, IRON SUCROSE COMPLEX 100 MG in SODIUM CHLORIDE 0.9% IV 250 ML 78.57 MG IVPB (13:18)
[2024-04-18 14:00] VITALS: BP 125/51; PULSE 93; RESP 20; TEMP 36; O2SAT 98
--- NOTE | 2024-04-18 14:40 | PM.CNGS ---
Assessment and Plan Assessment and plan (1) Metastatic carcinoma: Code(s): C79.9 - Secondary malignant neoplasm of unspecified site Status: Acute Assessment and Plan: Left supraclavicular lymph node biopsy showing metastatic carcinoma of unknown primary site. He is undergoing further workup by Oncology. They are planning to initiate chemotherapy after all testing is back. We have been consulted for insertion Port-a-cath. Description of the procedure, risks, benefits, alternatives, and expected recovery were discussed with the patient in detail. He understands and agrees to proceed with scheduling surgery. Will follow along peripherally to decide timing of surgery when he is medically stable either during this hospitalization or he can be brought back as an outpatient as well. (2) Ascites, malignant: Code(s): R18.0 - Malignant ascites Status: Acute Assessment and Plan: S/p paracentesis today with relief in his abdominal discomfort and shortness of breath. (3) Acute kidney injury: Code(s): N17.9 - Acute kidney failure, unspecified Status: Acute Assessment and Plan: Creatinine going up. Nephrology following. Will continue to monitor. (4) Hyponatremia: Code(s): E87.1 - Hypo-osmolality and hyponatremia Status: Acute (5) Hypercalcemia: Code(s): E83.52 - Hypercalcemia Status: Acute (6) Anemia: Qualifiers: Anemia type: iron deficiency Code(s): D64.9 - Anemia, unspecified Status: Acute (7) Type 2 diabetes mellitus: Qualifiers: Diabetes mellitus usp insulin use: without intermediate school teacher use Diabetes mellitus complication status: without complication Qualified Code(s): E11.9 - Type 2 diabetes mellitus without complications Code(s): E11.9 - Type 2 diabetes mellitus without complications Status: Acute Plan I have discussed the patient's case and plan of care with Dr. Arroyo. History of Present Illness Consult details Consult date: 04/18/24 Reason for consult: other (Port-A-Cath placement) Requesting physician: Nikki Taylor APRN Narrative: This is a 78-year-old man with a history of diabetes, hypertension, and recently diagnosed with metastatic adenocarcinoma of unknown primary site. He presented to the ED 2 days ago with abdominal pain and bloating. Workup showed acute kidney injury. He was admitted with shortness of breath, malignant ascites with worsening abdominal distension, and acute renal failure. Oncology consulted and suspects primary site is biliary or gallbladder. Oncology was consulted. He underwent paracentesis that yielded 5 L of fluid. Oncology is ordering abdominal MRI and waiting for tempus testing. Oncology is planning chemotherapy eventually after all testing comes back. They have consulted our service for Port-A-Cath placement. He is now seen on the medical floor. He is on 2 L O2 and reports his shortness of breath and abdominal discomfort is significantly improved following paracentesis. Denies ever having a central venous catheter in the past. Review of Systems Review of Systems: All systems reviewed & are unremarkable except as noted in HPI and below PMFSH Past Medical History Medical History COVID-30 October 2020 Diabetes Glaucoma Hypertension Metastatic carcinoma Surgical History Surgical History H/O cataract removal with insertion of prosthetic lens Family History Family History Father Heart disease Social History Social History Smoking status: Never smoker Alcohol intake: never Substance use: never Do You Feel Safe in your Home?: Yes Lack of Transportation: No Lack of Food: Never True Current Housing: I Have Housing Con
--- NOTE | 2024-04-18 16:01 | PCPTNOTE ---
On 04/18/24, the student, [Jeanne See], provided care and completed [facility] documentation on this patient. I have reviewed the student's documentation and agree with the findings.
[2024-04-18 16:35] LABS: Glucose Point of Care 125 mg/dl (65-105)
[2024-04-18] MEDS: FERROUS SULFATE 325 MG TABLET DR PO (16:47)
[2024-04-18] MEDS: CALCIUM CARBONATE (TUMS) 500 MG (200 MG ELEMENTAL) PO (17:36)
[2024-04-18] MEDS: PANTOPRAZOLE 40 MG TABLET PO (20:21)
[2024-04-18 20:30] VITALS: BP 142/57; PULSE 92; RESP 16; TEMP 36.6; O2SAT 99
[2024-04-18 20:45] LABS: Glucose Point of Care 117 mg/dl (65-105)
[2024-04-19 05:33] LABS: Basophils Percent Auto 0.4 % (0.2-1.2); Eosinophils Absolute Auto 0.1 K/mm3 (0-0.3); Eosinophils Percent Auto 1.1 % (0-4.4); Hematocrit 36.8 % (42.0-52.0); Hemoglobin 11.9 g/dL (14.0-18.0); Immature Granulocyte Absolute 0.17 K/mm3 (0.00-0.031); Immature Granulocyte Percent A 1.6 % (0-0.5); Lymphocytes Absolute Auto 0.72 K/mm3 (0.9-3.2); Lymphocytes Percent Auto 6.9 % (18.3-44.2); Mean Corpuscular HGB Conc 32.3 g/dl (32-36); Mean Corpuscular Hemoglobin 29.8 pg (26-34); Mean Platelet Volume 9.7 fl (7.4-10.4); Monocytes Percent Auto 9.6 % (2.6-8.5); Neutrophils Absolute Auto 8.4 K/mm3 (1.3-6.7); Neutrophils Percent Auto 80.4 % (45.5-73.1); Platelet Count Result 290 k/mm3 (150-375); Red Cell Distribution Width 14.2 % (11.5-14.5); White Blood Count 10.5 K/mm3 (4.5-10.0)
[2024-04-19 05:49] LABS: Alanine Aminotransferase 57 U/L (6-50); Alkaline Phosphatase 719 U/L (38-126); Anion Gap 7 mmol/L (4-12); Aspartate Amino Transferase 89 U/L (17-59); Bilirubin,Total 2.4 mg/dL (0.2-1.3); Blood Urea Nitrogen 65 mg/dL (9-20); Calcium 11.6 mg/dL (8.4-10.2); Carbon Dioxide 26 mmol/L (22-30); Chloride 96 mmol/L (98-107); Estimated CRCL calculation 23 ml/min; Estimated Glomerular Filt Rate 18; Glucose 109 mg/dL (65-110); Potassium 4.8 mmol/L (3.4-5.0); Sodium 129 mmol/L (137-145)
[2024-04-19 06:00] VITALS: BP 131/51; PULSE 90; RESP 16; TEMP 36.8; O2SAT 97
[2024-04-19 07:34] LABS: Glucose Point of Care 107 mg/dl (65-105)
[2024-04-19] MEDS: SODIUM CHLORIDE 0.9% IV 1,000 ML 100 ML IV CONT (08:46)
[2024-04-19] MEDS: SITagliptin PHOSPHATE 100 MG TABLET PO (08:47)
[2024-04-19] MEDS: FERROUS SULFATE 325 MG TABLET DR PO ×2 (08:47→17:01)
[2024-04-19] MEDS: TIMOLOL MALEATE 0.5% OP SOLN 5 ML BOTTLE 1 DROP EACH EYE ×2 (08:48→21:07)
[2024-04-19] MEDS: LATANOPROST 0.005% OP SOLN 2.5 ML BTL 1 DROP LEFT EYE (08:48)
[2024-04-19] MEDS: PANTOPRAZOLE 40 MG TABLET PO ×2 (08:49→21:07)
--- NOTE | 2024-04-19 10:27 | PM.PNNEP ---
Progress Note: A&P Assessment and Plan (1) Acute kidney injury: Code(s): N17.9 - Acute kidney failure, unspecified Status: Acute Assessment and Plan: normal creatinine at baseline admission creatinine noted at 2.9mg/dl suspect 3rd spacing of fluid into abdomen and LEs from underlying malignancy resulting in prerenal azotemia likely worsened by the use of diuretic therapy evaluation to date: normal renal ultrasound CPK okay urine electroltyes pre-renal mild proteinuria continue trial of IVFs diuretics on hold follow trend of repeat labs and UOP (2) Hyponatremia: Code(s): E87.1 - Hypo-osmolality and hyponatremia Status: Acute Assessment and Plan: presumably related to BEVERLY/ARF and fluid retention cannot discount malignancy playing a role as well cortisol level okay -- check TSH follow trend for now (3) Edema: Code(s): R60.9 - Edema, unspecified Status: Acute Assessment and Plan: no DVTs by venous dopplers Echo pending suspect secondary to 3rd spacing from underlying malignancy leg elevation and compression/NEDRA wraps for now holding diuretis due to #1 (4) Hypercalcemia: Code(s): E83.52 - Hypercalcemia Status: Acute Assessment and Plan: slow improvement elevated on admission possibly related to malignancy? follow trend (5) Ascites, malignant: Code(s): R18.0 - Malignant ascites Status: Acute Assessment and Plan: s/p arge volume paracentesis on 04/18/24 secondary to underlying malignancy likely contributing to abdominal discomfort and shortness of breath -- symptomatically better following intervention (6) Hypertension: Qualifiers: Hypertension type: primary hypertension Qualified Code(s): I10 - Essential (primary) hypertension Code(s): I10 - Essential (primary) hypertension Status: Chronic Assessment and Plan: reasonable control follow trend of hemodynamics (7) Metastatic carcinoma: Code(s): C79.9 - Secondary malignant neoplasm of unspecified site Status: Acute Assessment and Plan: evaluation noted to date primary source not clear but suspicion falls on biliary tract versus gallbladder given associated transaminitis Hem/Onc following (8) Type 2 diabetes mellitus: Qualifiers: Diabetes mellitus complication status: without complication Diabetes mellitus intermodal customer service insulin use: without intermodal customer service use Qualified Code(s): E11.9 - Type 2 diabetes mellitus without complications Code(s): E11.9 - Type 2 diabetes mellitus without complications Status: Acute Assessment and Plan: follow accu-cheks glycemic control per hospitalists Will continue to follow. Subjective Date/time seen: 04/19/24 10:27 Interval history: Follow-up for acute kidney injury/acute renal failure. No significant improvement in renal function/creatinine at this time (but has not worsened either); s/p large volume paracentesis yesterday afternoon and tolerated this procedure fairly well -- reports feels better after this intervention with regard to abdominal distension and shortness of breath; no apparent distress noted at the time of my visit. Exam Narrative: General: mildly ill-appearing male in NAD Heart: normal S1 and S2; no rub Lungs: clear anteriorly; decreased at bases Abdomen: soft, mild distension; positive bowel sounds Extremities: no cyanosis or clubbing; 2 - 3+ edema Skin: warm and intact Objective Data Vital Signs Vital Signs: Vital Signs Temp Pulse Resp BP Pulse Ox O2 Del Method 04/19/24 08:00 Room Air 04/19/24 06:00 98.3 F 90 16 131/51 L 97 04/18/24 20:30 97.8 F 92 16 142/57 H 99 04/18/24 14:00 96.8 F L 93 20 125/51 L 98 04/18/24 13:53 Room Air Intake/Output Intake/Output: Intake & Output 04/16/24 04/17/24 04/18/24 04/19/24 23:59
--- NOTE | 2024-04-19 10:27 | P.PNNP_ITS ---
Progress Note: A&P Assessment and Plan (1) Acute kidney injury: Code(s): N17.9 - Acute kidney failure, unspecified Status: Acute Assessment and Plan: * normal creatinine at baseline * admission creatinine noted at 2.9mg/dl * suspect 3rd spacing of fluid into abdomen and LEs from underlying malignancy resulting in prerenal azotemia likely worsened by the use of diuretic therapy * evaluation to date: * normal renal ultrasound * CPK okay * urine electroltyes pre-renal * mild proteinuria * continue trial of IVFs * diuretics on hold * follow trend of repeat labs and UOP (2) Hyponatremia: Code(s): E87.1 - Hypo-osmolality and hyponatremia Status: Acute Assessment and Plan: * presumably related to BEVERLY/ARF and fluid retention * cannot discount malignancy playing a role as well * cortisol level okay -- check TSH * follow trend for now (3) Edema: Code(s): R60.9 - Edema, unspecified Status: Acute Assessment and Plan: * no DVTs by venous dopplers * Echo pending * suspect secondary to 3rd spacing from underlying malignancy * leg elevation and compression/NEDRA wraps for now * holding diuretis due to #1 (4) Hypercalcemia: Code(s): E83.52 - Hypercalcemia Status: Acute Assessment and Plan: * slow improvement * elevated on admission * possibly related to malignancy? * follow trend (5) Ascites, malignant: Code(s): R18.0 - Malignant ascites Status: Acute Assessment and Plan: * s/p arge volume paracentesis on 04/18/24 * secondary to underlying malignancy * likely contributing to abdominal discomfort and shortness of breath -- symptomatically better following intervention (6) Hypertension: Qualifiers: Hypertension type: primary hypertension Qualified Code(s): I10 - Essential (primary) hypertension Code(s): I10 - Essential (primary) hypertension Status: Chronic Assessment and Plan: * reasonable control * follow trend of hemodynamics (7) Metastatic carcinoma: Code(s): C79.9 - Secondary malignant neoplasm of unspecified site Status: Acute Assessment and Plan: * evaluation noted to date * primary source not clear but suspicion falls on biliary tract versus gallbladder given associated transaminitis * Hem/Onc following (8) Type 2 diabetes mellitus: Qualifiers: Diabetes mellitus complication status: without complication Diabetes mellitus termite treater insulin use: without termite treater use Qualified Code(s): E11.9 - Type 2 diabetes mellitus without complications Code(s): E11.9 - Type 2 diabetes mellitus without complications Status: Acute Assessment and Plan: * follow accu-cheks * glycemic control per hospitalists Will continue to follow. Subjective Date/time seen: 04/19/24 10:27 Interval history: Follow-up for acute kidney injury/acute renal failure. No significant improvement in renal function/creatinine at this time (but has not worsened either); s/p large volume paracentesis yesterday afternoon and tolerated this procedure fairly well -- reports feels better after this intervention with regard to abdominal distension and shortness of breath; no apparent distress noted at the time of my visit. Exam Narrative: General: mildly ill-appearing male in NAD Heart: normal S1 and S2; no rub Lungs: clear anteriorly; decreased at bases Abdomen: soft, mild distensio
[2024-04-19 10:49] LABS: Ionized Calcium 6.8 mg/dL (4.7-5.5)
--- NOTE | 2024-04-19 11:15 | PM.IMPN ---
Progress Note: A&P Assessment and Plan (1) Metastatic carcinoma: Code(s): C79.9 - Secondary malignant neoplasm of unspecified site Status: Acute Assessment and Plan: - CT abd/pelvis (04/16/24): Right upper quadrant mass at the head of the pancreas/hilum of the liver. Multiple hepatic masses suspicious for metastatic disease. Thoracic and upper abdominal lymphadenopathy. Peritoneal. Moderate ascites. - established with Luci PFEIFFER. workup in process to identify type of cancer. oncology consulted. - per last onc note on 04/04/24, plan for: [employer] Nex[employer] testing ordered by oncology team, therapy treatment based upon results. May need excisional biopsy of the left supraclavicular lymph node. Suspecting biliary tract cancer versus gallbladder cancer due to elevated liver enzymes and ascites. Also waiting MediPort placement prior to chemo. - uric acid 13.6, K 4.9, calcium 13.1, and awaiting phos level - pain medication prn - care coordination consulted: Acute rehab consult, advance directives, and [place] [facility] placement - oncology saw him today- following (2) Ascites, malignant: Code(s): R18.0 - Malignant ascites Status: Acute Assessment and Plan: - last paracentesis on 03/15 - 1100 mL of red fluid - nondiagnostic paracentesis ordered-today or tomorrow 04/18- para completed today 04/19 stable- breathing is ok (3) Acute renal failure: Qualifiers: Acute renal failure type: unspecified Qualified Code(s): N17.9 - Acute kidney failure, unspecified Code(s): N17.9 - Acute kidney failure, unspecified Status: Acute Assessment and Plan: - creatinine 2.90 and GFR 21 - previously 1.0 and GFR >60 on 03/15/2024 - no prior hx of CKD - nephrology consulted - add CK, urine sodium, protein/creatinine - UA: turbid, 1+ protein, 1+ bilirubin, trace leuks, 11-20 RBC. - hold lasix 40 mg PO daily - monitor I&Os - trend renal function - nephrology consulted- following - IV fluids at 100 l /h and so far renal function not improved at all but noted leg swelling- of course it could be due to pt in katy chair- but will decrease IV rate to 50 ml and wait for nephrology recommendations. will need leg elevation while in bed (4) Shortness of breath: Code(s): R06.02 - Shortness of breath Status: Acute Assessment and Plan: - EKG, initial: Sinus rhythm, left axis deviation, RBBB, high lateral infarct age indeterminate, baseline artifact. No previous available for comparison. - CXR ordered - BNP ordered - suspect shortness of breath related to worsening ascites - monitor 04/18 better since paracentesis compelled 04/19- improved- monitor (5) Hyponatremia: Code(s): E87.1 - Hypo-osmolality and hyponatremia Status: Acute Assessment and Plan: - Na 128, previously 136 on 03/15/2024 - add serum osmolality, urine osmolality, urine sodium, protein to creatinine ratio, urine creatinine - trend electrolytes - nephrology consulted- following - appreciate recommendations (6) Hypercalcemia: Code(s): E83.52 - Hypercalcemia Status: Acute Assessment and Plan: - Ca 13.1 - repeat w/ionized calcium, add intact PTH - IV fluids: 2L bolus, 100 mL/hr - trend (7) Transaminitis: Code(s): R74.01 - Elevation of levels of liver transaminase levels Status: Acute Assessment and Plan: - per oncology notes, suspected source of cancer is biliary tract cancer versus gallbladder cancer given the transaminitis - trend (8) Type 2 diabetes mellitus: Qualifiers: Diabetes mellitus complication status: without complication Diabetes mellitus mcc insulin use: without intermission coordinator use Qualified Code(s): E11.9 - Type 2 diabetes mellitus without complications Code(s): E11.9 - Type 2 diabetes mellitus without complications Status: Acute Assessment and Plan: - hypoglycemia protocol - POC blood glucose [facility]
[2024-04-19 11:35] LABS: Glucose Point of Care 107 mg/dl (65-105)
--- NOTE | 2024-04-19 12:18 | PM.PNGS ---
Progress Note: A&P Assessment and Plan (1) Metastatic adenocarcinoma: Code(s): C79.9 - Secondary malignant neoplasm of unspecified site Status: Acute Assessment and Plan: continue oncologic workup, discussion with patient family would like go home poor placed outpatient prior to initiation chemotherapy, will sign off at this point, call with questions or issues Subjective Subjective Date/Time Seen: 04/19/24 12:18 Interval history: no acute issues Review of Systems Review of Systems: All systems reviewed & are unremarkable except as noted in HPI and below Exam Const: General: cooperative, comfortable, no acute distress and ill appearing Neck: Neck: normal visual inspection, full ROM and no lymphadenopathy Chest: Chest palpation & inspection: normal inspection of the chest Resp: Auscultation: diminished lung sounds Cardio: Rate: regular rate Rhythm: regular rhythm GI: Inspection: normal to inspection and non-distended GI Palp: No abdominal tenderness Objective Data Vital Signs Vital Signs: Vital Signs - 24 hr 04/18/24 13:53 04/18/24 14:00 04/18/24 20:30 Temperature 36.0 C L 36.6 C Pulse Rate 93 92 Respiratory Rate 20 16 Blood Pressure 125/51 L 142/57 H Pulse Oximetry 98 99 Oxygen Delivery Room Air 04/19/24 06:00 04/19/24 08:00 Temperature 36.8 C Pulse Rate 90 Respiratory Rate 16 Blood Pressure 131/51 L Pulse Oximetry 97 Oxygen Delivery Room Air Intake/Output Intake/Output: Intake & Output 04/16/24 04/17/24 04/18/24 04/19/24 23:59 23:59 23:59 23:59 Intake Total 2066.6 3116.7 4201.7 1000 Output Total 50 5003 Balance 2066.6 3066.7 -801.3 1000 Meds/Results Medications: Active Medications Generic Name Dose Route Start Last Admin Trade Name Freq PRN Reason Stop Dose Admin Acetaminophen 650 mg 04/16/24 18:37 Acetaminophen 325 Mg Tablet PO Q4H PRN Mild Pain (1-3) or Fever Calcium Carbonate 200 mg 04/18/24 17:10 04/18/24 17:36 Calcium Carbonate (Tums) 500 Mg (200 Mg Elemental) PO 200 mg Q6H PRN Administration Indigestion Dextrose 12.5 gm 04/16/24 22:57 Dextrose 50% 25 Gm/50 Ml Syringe IV PUSH PRN PRN Hypoglycemia Protocol Ferrous Sulfate 325 mg 04/18/24 17:00 04/19/24 08:47 Ferrous Sulfate [address] PO 325 mg BID CHANDNI Administration Glucagon 1 mg 04/16/24 22:57 Glucagon For Inj 1 Mg Vial IM PRN PRN Hypoglycemia Protocol Glucose 15 gm 04/16/24 22:57 Glucose Oral Gel 15 Gm Of Glucse In 37.5 Gm Tube PO PRN PRN Hypoglycemia Protocol Sodium Chloride 1,000 mls @ 50 mls/hr 04/16/24 19:50 04/19/24 10:58 Normal Saline Iv IV CONT Not Given .Q20H CHANDNI Dextrose 1,000 mls @ 100 mls/hr 04/16/24 22:57 Dextrose 5% 1,000 Ml IVPB PRN PRN Hypoglycemia Protocol Insulin Aspart 2 - 5 units 04/17/24 08:00 04/19/24 12:13 Insulin Aspart (*Bkc) 100 Units/Ml SUB-Q Not Given TIDWM [facility] Protocol Latanoprost 1 drop 04/17/24 09:00 04/19/24 08:48 Latanoprost 0.005% Op Soln 2.5 Ml Btl LEFT EYE 1 drop DAILY CHANDNI Administration Miconazole Nitrate 1 applic 04/18/24 09:00 04/19/24 08:48 Miconazole 2% Antifungal Ointment 56 Gm TOPICAL 1 applic Q12HR CHANDNI Administration Ondansetron HCl 4 mg 04/16/24 18:37 Ondansetron Inj 4 Mg/2 Ml Vial IV PUSH Q4H PRN Nausea Pantoprazole Sodium 40 mg 04/18/24 21:00 04/19/24 08:49 Pantoprazole 40 Mg Tablet PO 40 mg Q12HR HCANDNI Administration Sitagliptin Phosphate 100 mg 04/17/24 09:00 04/19/24 08:47 Sitagliptin Phosphate 100 Mg Tablet PO 100 mg DAILY CHANDNI Administration Timolol Maleate 1 drop 04/17/24 09:00 04/19/24 08:48 Timolol Maleate 0.5% Op Soln 5 Ml Bottle EACH EYE 1 drop Q12HR CHANDNI Administration Radiology Results: ITS Impressions Abdomen/Pelvis CT 04/16/24 18:05 IMPRESSION: Right upper quadrant
[2024-04-19 14:00] VITALS: BP 114/52; PULSE 91; RESP 20; TEMP 36; O2SAT 99
[2024-04-19 16:46] LABS: Glucose Point of Care 101 mg/dl (65-105)
[2024-04-19 17:14] LABS: Osmolality, Urine 606 mOsm/kg (50-1200)
[2024-04-19 20:00] VITALS: BP 118/49; PULSE 92; RESP 16; TEMP 36.4; O2SAT 99
[2024-04-19 20:36] LABS: Glucose Point of Care 98 mg/dl (65-105)
[2024-04-20 05:34] VITALS: BP 128/51; PULSE 96; RESP 16; TEMP 36.3; O2SAT 100
[2024-04-20 07:02] LABS: Alanine Aminotransferase 57 U/L (6-50); Alkaline Phosphatase 731 U/L (38-126); Anion Gap 7 mmol/L (4-12); Aspartate Amino Transferase 86 U/L (17-59); Bilirubin,Total 2.5 mg/dL (0.2-1.3); Blood Urea Nitrogen 66 mg/dL (9-20); Calcium 11.5 mg/dL (8.4-10.2); Carbon Dioxide 26 mmol/L (22-30); Chloride 95 mmol/L (98-107); Estimated CRCL calculation 22 ml/min; Estimated Glomerular Filt Rate 17; Glucose 97 mg/dL (65-110); Magnesium 1.9 mg/dL (1.6-2.3); Phosphorus 5.1 mg/dL (2.5-4.5); Potassium 4.4 mmol/L (3.4-5.0); Sodium 128 mmol/L (137-145)
[2024-04-20 07:11] LABS: Basophils Percent Auto 0.3 % (0.2-1.2); Eosinophils Absolute Auto 0.1 K/mm3 (0-0.3); Eosinophils Percent Auto 0.6 % (0-4.4); Hematocrit 36.2 % (42.0-52.0); Hemoglobin 11.6 g/dL (14.0-18.0); Immature Granulocyte Absolute 0.12 K/mm3 (0.00-0.031); Immature Granulocyte Percent A 1.1 % (0-0.5); Lymphocytes Absolute Auto 0.66 K/mm3 (0.9-3.2); Lymphocytes Percent Auto 6.3 % (18.3-44.2); Mean Corpuscular Hemoglobin 29.4 pg (26-34); Mean Corpuscular Volume 91.6 fl (80-100); Monocytes Absolute Auto 0.8 K/mm3 (0.1-0.6); Neutrophils Absolute Auto 8.7 K/mm3 (1.3-6.7); Neutrophils Percent Auto 83.7 % (45.5-73.1); Platelet Count Result 308 k/mm3 (150-375); Red Blood Count 3.95 M/mm3 (4.6-6.20); Red Cell Distribution Width 14.3 % (11.5-14.5); White Blood Count 10.4 K/mm3 (4.5-10.0)
[2024-04-20 08:23] LABS: Glucose Point of Care 105 mg/dl (65-105)
--- NOTE | 2024-04-20 08:26 | PM.IMPN ---
Progress Note: A&P Assessment and Plan (1) Metastatic adenocarcinoma: Code(s): C79.9 - Secondary malignant neoplasm of unspecified site Status: Acute Assessment and Plan: Concern for biliary tract cancer versus gallbladder cancer d/t elevated liver enzymes - Abdomen/pelvis CT 04/16: Right upper quadrant mass at the head of the pancreas/hilum of the liver. Multiple hepatic masses suspicious for metastatic disease. Thoracic and upper abdominal lymphadenopathy. Peritoneal. Moderate ascites. - Abdomen MRI 04/19: Liver masses, abdominal lymphadenopathy, and moderate volume of malignant ascites, consistent with metastatic disease. Cholelithiasis. Gallbladder distention may secondary to fasting. - [employer] testing has been sent for additional testing as well as supraclavicular lymph node excisional biopsy - Port placement ordered for chemotherapy - Oncology following and continuing work up (2) Ascites, malignant: Code(s): R18.0 - Malignant ascites Status: Acute Assessment and Plan: - s/p nondiagnostic paracentesis on 04/18 yielding 5000 mL of brownish red fluid (3) Acute renal failure: Qualifiers: Acute renal failure type: unspecified Qualified Code(s): N17.9 - Acute kidney failure, unspecified Code(s): N17.9 - Acute kidney failure, unspecified Status: Acute Assessment and Plan: Creatinine is normal at baseline. Per nephrology likely related to 3rd spacing of fluid into abdomen and LEs from underlying malignancy resulting in prerenal azotemia - BUN/Cr 66/3.5 on am labs - Renal US 04/17: normal kidneys without hydronephrosis - Urine electrolytes pre renal - Continue IV NS (4) Anemia: Qualifiers: Anemia type: iron deficiency Code(s): D64.9 - Anemia, unspecified Status: Acute Assessment and Plan: Labs showing iron deficiency anemia without evidence of bleeding. Possibly due to malignancy. - Venofer received on 04/18 - Started on 65 mg BID iron supplementation - Monitor (5) Hyponatremia: Code(s): E87.1 - Hypo-osmolality and hyponatremia Status: Acute Assessment and Plan: Likely related to BEVERLY/ARF, fluid retention, and possibly malignancy - cortisol level normal - TSH 2.580 - Monitor with daily labs - No neurological deficits at this time (6) Type 2 diabetes mellitus: Qualifiers: Diabetes mellitus complication status: without complication Diabetes mellitus fnps insulin use: without fnps use Qualified Code(s): E11.9 - Type 2 diabetes mellitus without complications Code(s): E11.9 - Type 2 diabetes mellitus without complications Status: Acute Assessment and Plan: - hypoglycemia protocol - POC blood glucose ACHS - home medication - metformin and sitagliptin - correct regimen ordered - low dose TIDWM and sitagliptin - A1C 12/20: 6.5 (7) Hypertension: Qualifiers: Hypertension type: primary hypertension Qualified Code(s): I10 - Essential (primary) hypertension Code(s): I10 - Essential (primary) hypertension Status: Chronic Assessment and Plan: Chronic, well controlled. - Furosemide 40 mg daily being held at this time - Monitor Time Spent With Patient Time with patient: 25 - 35 minutes Subjective Date/time seen: 04/20/24 08:26 Interval history: 78 y/o M with PMH of metastatic cancer of unknown origin, diabetes, glaucoma, and hypertension presents here with abdominal pain and shortness of breath. Patient is pleasant sitting up in bed. He continues to endorse shortness of breath requiring 2L NC at this time for comfort. He denies chest pain and palpitations. He states that initially after the paracentesis he felt much better, but now it feels like the abdominal fluid is returning much faster. He denies abdominal pain, nausea/vomiting and changes in bowel/bladder. Patient is to have a port placed during this admission per oncology. Review of S
[2024-04-20] MEDS: LATANOPROST 0.005% OP SOLN 2.5 ML BTL 1 DROP LEFT EYE (09:52)
[2024-04-20] MEDS: FERROUS SULFATE 325 MG TABLET DR PO ×2 (09:52→17:14)
[2024-04-20] MEDS: SITagliptin PHOSPHATE 100 MG TABLET PO (09:52)
[2024-04-20] MEDS: PANTOPRAZOLE 40 MG TABLET PO ×2 (09:52→20:38)
[2024-04-20] MEDS: TIMOLOL MALEATE 0.5% OP SOLN 5 ML BOTTLE 1 DROP EACH EYE ×2 (09:52→20:39)
[2024-04-20 12:01] LABS: Glucose Point of Care 118 mg/dl (65-105)
--- NOTE | 2024-04-20 13:32 | P.PNNP_ITS ---
Progress Note: A&P Assessment and Plan (1) Acute kidney injury: Code(s): N17.9 - Acute kidney failure, unspecified Status: Acute Assessment and Plan: * normal creatinine at baseline * admission creatinine noted at 2.9mg/dl * suspect 3rd spacing of fluid into abdomen and LEs from underlying malignancy resulting in prerenal azotemia state likely worsened by the use of diuretic therapy * evaluation to date: * normal renal ultrasound * CPK okay * urine electrolytes pre-renal * mild proteinuria * diuretics on hold - will give a trial dose with IV albumin given symptoms today * check renal scan * follow trend of repeat labs and UOP (2) Hyponatremia: Code(s): E87.1 - Hypo-osmolality and hyponatremia Status: Acute Assessment and Plan: * presumably related to BEVERLY/ARF and fluid retention * cannot discount malignancy playing a role as well * cortisol level okay -- check TSH * follow trend for now (3) Edema: Code(s): R60.9 - Edema, unspecified Status: Acute Assessment and Plan: * no DVTs by venous dopplers * Echo noted * suspect secondary to 3rd spacing from underlying malignancy * leg elevation and compression/NEDRA wraps for now * trial of diuresis today (4) Hypercalcemia: Code(s): E83.52 - Hypercalcemia Status: Acute Assessment and Plan: * slow improvement * elevated on admission * possibly related to malignancy? * follow trend (5) Ascites, malignant: Code(s): R18.0 - Malignant ascites Status: Acute Assessment and Plan: * s/p arge volume paracentesis on 04/18/24 * secondary to underlying malignancy * likely contributing to abdominal discomfort and shortness of breath -- symptomatically better following intervention (6) Hypertension: Qualifiers: Hypertension type: primary hypertension Qualified Code(s): I10 - Essential (primary) hypertension Code(s): I10 - Essential (primary) hypertension Status: Chronic Assessment and Plan: * reasonable control * follow trend of hemodynamics (7) Metastatic carcinoma: Code(s): C79.9 - Secondary malignant neoplasm of unspecified site Status: Acute Assessment and Plan: * evaluation noted to date * primary source not clear but suspicion falls on biliary tract versus gallbladder given associated transaminitis * Hem/Onc following (8) Type 2 diabetes mellitus: Qualifiers: Diabetes mellitus terminal makeup operator insulin use: without terminal makeup operator use Diabetes mellitus complication status: without complication Qualified Code(s): E11.9 - Type 2 diabetes mellitus without complications Code(s): E11.9 - Type 2 diabetes mellitus without complications Status: Acute Assessment and Plan: * follow accu-cheks * glycemic control per hospitalists Will continue to follow. Subjective Date/time seen: 04/20/24 13:32 Interval history: Follow-up for acute kidney injury/acute renal failure. Renal function remains the same since admission with no significant improvement; endorses more short of breath at the time of my visit that he attributes to the return of abdominal distension; has been requiring on/off supplemental oxygen therapy; no other acute issues or complaints voiced. Exam Narrative: General: mildly ill-appearing male in NAD Heart: normal S1 and S2; no rub Lungs: clear anteriorly; decreased at bases Abdomen: soft, moderate di
--- NOTE | 2024-04-20 13:32 | PM.PNNEP ---
Progress Note: A&P Assessment and Plan (1) Acute kidney injury: Code(s): N17.9 - Acute kidney failure, unspecified Status: Acute Assessment and Plan: normal creatinine at baseline admission creatinine noted at 2.9mg/dl suspect 3rd spacing of fluid into abdomen and LEs from underlying malignancy resulting in prerenal azotemia state likely worsened by the use of diuretic therapy evaluation to date: normal renal ultrasound CPK okay urine electrolytes pre-renal mild proteinuria diuretics on hold - will give a trial dose with IV albumin given symptoms today check renal scan follow trend of repeat labs and UOP (2) Hyponatremia: Code(s): E87.1 - Hypo-osmolality and hyponatremia Status: Acute Assessment and Plan: presumably related to BEVERLY/ARF and fluid retention cannot discount malignancy playing a role as well cortisol level okay -- check TSH follow trend for now (3) Edema: Code(s): R60.9 - Edema, unspecified Status: Acute Assessment and Plan: no DVTs by venous dopplers Echo noted suspect secondary to 3rd spacing from underlying malignancy leg elevation and compression/NEDRA wraps for now trial of diuresis today (4) Hypercalcemia: Code(s): E83.52 - Hypercalcemia Status: Acute Assessment and Plan: slow improvement elevated on admission possibly related to malignancy? follow trend (5) Ascites, malignant: Code(s): R18.0 - Malignant ascites Status: Acute Assessment and Plan: s/p arge volume paracentesis on 04/18/24 secondary to underlying malignancy likely contributing to abdominal discomfort and shortness of breath -- symptomatically better following intervention (6) Hypertension: Qualifiers: Hypertension type: primary hypertension Qualified Code(s): I10 - Essential (primary) hypertension Code(s): I10 - Essential (primary) hypertension Status: Chronic Assessment and Plan: reasonable control follow trend of hemodynamics (7) Metastatic carcinoma: Code(s): C79.9 - Secondary malignant neoplasm of unspecified site Status: Acute Assessment and Plan: evaluation noted to date primary source not clear but suspicion falls on biliary tract versus gallbladder given associated transaminitis Hem/Onc following (8) Type 2 diabetes mellitus: Qualifiers: Diabetes mellitus termite control service representative insulin use: without termite control service representative use Diabetes mellitus complication status: without complication Qualified Code(s): E11.9 - Type 2 diabetes mellitus without complications Code(s): E11.9 - Type 2 diabetes mellitus without complications Status: Acute Assessment and Plan: follow accu-cheks glycemic control per hospitalists Will continue to follow. Subjective Date/time seen: 04/20/24 13:32 Interval history: Follow-up for acute kidney injury/acute renal failure. Renal function remains the same since admission with no significant improvement; endorses more short of breath at the time of my visit that he attributes to the return of abdominal distension; has been requiring on/off supplemental oxygen therapy; no other acute issues or complaints voiced. Exam Narrative: General: mildly ill-appearing male in NAD Heart: normal S1 and S2; no rub Lungs: clear anteriorly; decreased at bases Abdomen: soft, moderate distension; positive bowel sounds Extremities: no cyanosis or clubbing; 2 - 3+ edema Skin: no rash Objective Data Vital Signs Vital Signs: Vital Signs Temp Pulse Resp BP Pulse Ox O2 Del Method 04/20/24 13:00 96.7 F L 92 20 121/53 L 100 04/20/24 08:00 Room Air 04/20/24 05:34 97.3 F L 96 16 128/51 L 100 04/19/24 20:00 97.5 F L 92 16 118/49 L 99 Intake/Output Intake/Output: Intake & Output 04/17/24 04/18/24 04/19/24 04/20/24 23:59 23:59 23:59 23:59 Intake Total 3
[2024-04-20 14:00] VITALS: BP 121/53; PULSE 92; RESP 20; TEMP 35.9; O2SAT 100
[2024-04-20 16:56] LABS: Glucose Point of Care 129 mg/dl (65-105)
[2024-04-20 20:00] VITALS: BP 118/50; PULSE 97; RESP 16; TEMP 36; O2SAT 99
[2024-04-20 20:18] LABS: Glucose Point of Care 156 mg/dl (65-105)
[2024-04-20] MEDS: ALBUMIN HUMAN 25% 12.5 GM/50ML 50 ML IVPB (20:36)
[2024-04-20] MEDS: BUMETANIDE INJ 1 MG/4 ML VIAL 1.5 MG IV PUSH (21:42)
[2024-04-21 06:00] VITALS: BP 115/56; PULSE 95; RESP 16; TEMP 36.1; O2SAT 99
[2024-04-21 06:31] LABS: Basophils Percent Auto 0.3 % (0.2-1.2); Eosinophils Absolute Auto 0.1 K/mm3 (0-0.3); Eosinophils Percent Auto 0.7 % (0-4.4); Hematocrit 34.1 % (42.0-52.0); Hemoglobin 11.1 g/dL (14.0-18.0); Immature Granulocyte Absolute 0.13 K/mm3 (0.00-0.031); Immature Granulocyte Percent A 1.2 % (0-0.5); Lymphocytes Absolute Auto 0.72 K/mm3 (0.9-3.2); Lymphocytes Percent Auto 6.6 % (18.3-44.2); Mean Corpuscular HGB Conc 32.6 g/dl (32-36); Mean Corpuscular Hemoglobin 29.4 pg (26-34); Mean Corpuscular Volume 90.5 fl (80-100); Mean Platelet Volume 9.9 fl (7.4-10.4); Monocytes Absolute Auto 0.9 K/mm3 (0.1-0.6); Monocytes Percent Auto 8.2 % (2.6-8.5); Neutrophils Absolute Auto 9.1 K/mm3 (1.3-6.7); Platelet Count Result 308 k/mm3 (150-375); Red Blood Count 3.77 M/mm3 (4.6-6.20); Red Cell Distribution Width 14.2 % (11.5-14.5); White Blood Count 10.9 K/mm3 (4.5-10.0)
[2024-04-21 06:44] LABS: Alanine Aminotransferase 54 U/L (6-50); Albumin Level 2.9 g/dL (3.5-5.1); Alkaline Phosphatase 711 U/L (38-126); Anion Gap 6 mmol/L (4-12); Aspartate Amino Transferase 83 U/L (17-59); Bilirubin,Total 2.4 mg/dL (0.2-1.3); Blood Urea Nitrogen 71 mg/dL (9-20); Calcium 11.8 mg/dL (8.4-10.2); Carbon Dioxide 29 mmol/L (22-30); Chloride 94 mmol/L (98-107); Estimated CRCL calculation 21 ml/min; Estimated Glomerular Filt Rate 17; Glucose 135 mg/dL (65-110); Potassium 4.3 mmol/L (3.4-5.0); Sodium 129 mmol/L (137-145)
[2024-04-21 06:47] LABS: Phosphorus 4.7 mg/dL (2.5-4.5)
--- NOTE | 2024-04-21 07:28 | PM.IMPN ---
Progress Note: A&P Assessment and Plan (1) Metastatic adenocarcinoma: Code(s): C79.9 - Secondary malignant neoplasm of unspecified site Status: Acute Assessment and Plan: Concern for biliary tract cancer versus gallbladder cancer d/t elevated liver enzymes - Abdomen/pelvis CT 04/16: Right upper quadrant mass at the head of the pancreas/hilum of the liver. Multiple hepatic masses suspicious for metastatic disease. Thoracic and upper abdominal lymphadenopathy. Peritoneal. Moderate ascites. - Abdomen MRI 04/19: Liver masses, abdominal lymphadenopathy, and moderate volume of malignant ascites, consistent with metastatic disease. Cholelithiasis. Gallbladder distention may secondary to fasting. - [employer] testing has been sent for additional testing as well as supraclavicular lymph node excisional biopsy - Port placement ordered for chemotherapy, per oncology would like this placed inpatient, discussed with surgery and plan for placement tomorrow - Oncology following and continuing work up (2) Ascites, malignant: Code(s): R18.0 - Malignant ascites Status: Acute Assessment and Plan: - s/p nondiagnostic paracentesis on 04/18 yielding 5000 mL of brownish red fluid (3) Acute renal failure: Qualifiers: Acute renal failure type: unspecified Qualified Code(s): N17.9 - Acute kidney failure, unspecified Code(s): N17.9 - Acute kidney failure, unspecified Status: Acute Assessment and Plan: Creatinine is normal at baseline. Per nephrology likely related to 3rd spacing of fluid into abdomen and LEs from underlying malignancy resulting in prerenal azotemia - BUN/Cr 71/3.6 on am labs - Renal US 04/17: normal kidneys without hydronephrosis - Urine electrolytes pre renal - Continue IV NS - Nephrology following (4) Anemia: Qualifiers: Anemia type: iron deficiency Code(s): D64.9 - Anemia, unspecified Status: Acute Assessment and Plan: Labs showing iron deficiency anemia without evidence of bleeding. Possibly due to malignancy. - Venofer received on 04/18 - Started on 65 mg BID iron supplementation - Monitor (5) Hyponatremia: Code(s): E87.1 - Hypo-osmolality and hyponatremia Status: Acute Assessment and Plan: Likely related to BEVERLY/ARF, fluid retention, and possibly malignancy - cortisol level normal - TSH 2.580 - Monitor with daily labs - No neurological deficits at this time (6) Type 2 diabetes mellitus: Qualifiers: Diabetes mellitus complication status: without complication Diabetes mellitus senior care insulin use: without rodent exterminator use Qualified Code(s): E11.9 - Type 2 diabetes mellitus without complications Code(s): E11.9 - Type 2 diabetes mellitus without complications Status: Acute Assessment and Plan: - hypoglycemia protocol - POC blood glucose ACHS - home medication - metformin and sitagliptin - correct regimen ordered - low dose TIDWM and sitagliptin - A1C 12/20: 6.5 (7) Hypertension: Qualifiers: Hypertension type: primary hypertension Qualified Code(s): I10 - Essential (primary) hypertension Code(s): I10 - Essential (primary) hypertension Status: Chronic Assessment and Plan: Chronic, well controlled. - Furosemide 40 mg daily being held at this time - Monitor Time Spent With Patient Time with patient: 25 - 35 minutes Subjective Date/time seen: 04/21/24 07:28 Interval history: 78 y/o M with PMH of metastatic cancer of unknown origin, diabetes, glaucoma, and hypertension presents here with abdominal pain and shortness of breath. Patient is pleasant lying in bed with friendFidel at bedside. Per patient okay to discuss current care plan with friend in the room. Patient states he is feeling much better than yesterday. He is not as short of breath and is no longer requiring oxygen supplementation. He continues to endorse abdominal pressure related to his
[2024-04-21 08:00] VITALS: PULSE 95; RESP 16; O2SAT 99
[2024-04-21 08:20] LABS: Glucose Point of Care 134 mg/dl (65-105)
--- NOTE | 2024-04-21 08:35 | PCOTNOTE ---
Patient out of the room at this time. Patient went down to Nuclear Medicine for testing, will check back at a later time.
[2024-04-21] MEDS: LATANOPROST 0.005% OP SOLN 2.5 ML BTL 1 DROP LEFT EYE (09:23)
[2024-04-21] MEDS: PANTOPRAZOLE 40 MG TABLET PO ×2 (09:23→19:44)
[2024-04-21] MEDS: TIMOLOL MALEATE 0.5% OP SOLN 5 ML BOTTLE 1 DROP EACH EYE ×2 (09:23→19:45)
[2024-04-21] MEDS: FERROUS SULFATE 325 MG TABLET DR PO ×2 (09:23→17:47)
[2024-04-21] MEDS: SITagliptin PHOSPHATE 100 MG TABLET PO (09:23)
--- NOTE | 2024-04-21 09:38 | PCNFU ---
Nutrition Follow-Up Complete: Inadequate energy intake related to NPO status as evidenced by current diet orders Goal:Diet order - Goal met PO intake 75% of meals - Pt not meeting goal at this time. Pt current nutrition is Diabetic, glucerna shakes BID. Nutrition recommendation: Increase glucerna shakes to TID Last recorded weight is 113.4 kg. Bowel Motility: +BM 04/20 Labs Reviewed: Hgb:11.1, HCT:34.1, Alb:2.9, NA:129, GFR:17, BUN:71, Cr:3.6 Meds Noted: novolog, zofran, protonix, januvia Skin: maceration to buttocks Additional Notes: pt diet advanced to Diabetic consistent carb, intake 0-25% and poor at this time. Glucerna shakes BID. Recommend to increase shakes to TID, encourage po intake with meals. Monitor intake, wt, labs. Follow up in 3 days.
[2024-04-21 11:43] LABS: Glucose Point of Care 137 mg/dl (65-105)
--- NOTE | 2024-04-21 12:15 | PM.PNGS ---
Progress Note: A&P Assessment and Plan (1) Metastatic adenocarcinoma: Code(s): C79.9 - Secondary malignant neoplasm of unspecified site Status: Acute Assessment and Plan: will setup for port placement tomorrow Subjective Subjective Date/Time Seen: 04/21/24 12:15 Interval history: no acute issues, reports breathing is improved Review of Systems Review of Systems: All systems reviewed & are unremarkable except as noted in HPI and below Exam Const: General: cooperative, comfortable, no acute distress and ill appearing Neck: Neck: normal visual inspection and full ROM Chest: Chest palpation & inspection: normal inspection of the chest Resp: Auscultation: diminished lung sounds Cardio: Rate: regular rate Rhythm: regular rhythm GI: Inspection: normal to inspection Objective Data Vital Signs Vital Signs: Vital Signs - 24 hr 04/20/24 14:00 04/20/24 20:00 04/20/24 20:00 Temperature 35.9 C L 36.0 C L Pulse Rate 92 97 Respiratory Rate 20 16 Blood Pressure 121/53 L 118/50 L Pulse Oximetry 100 99 Oxygen Delivery Room Air 04/21/24 06:00 04/21/24 08:00 Temperature 36.1 C L Pulse Rate 95 95 Respiratory Rate 16 16 Blood Pressure 115/56 L Pulse Oximetry 99 99 Oxygen Delivery Room Air Intake/Output Intake/Output: Intake & Output 04/18/24 04/19/24 04/20/24 04/21/24 23:59 23:59 23:59 23:59 Intake Total 4201.7 1740 220 0 Output Total 5003 1 Balance -801.3 1739 220 0 Meds/Results Medications: Active Medications Generic Name Dose Route Start Last Admin Trade Name Sundarq PRN Reason Stop Dose Admin Acetaminophen 650 mg 04/16/24 18:37 Acetaminophen 325 Mg Tablet PO Q4H PRN Mild Pain (1-3) or Fever Calcium Carbonate 200 mg 04/18/24 17:10 04/18/24 17:36 Calcium Carbonate (Tums) 500 Mg (200 Mg Elemental) PO 200 mg Q6H PRN Administration Indigestion Dextrose 12.5 gm 04/16/24 22:57 Dextrose 50% 25 Gm/50 Ml Syringe IV PUSH PRN PRN Hypoglycemia Protocol Ferrous Sulfate 325 mg 04/18/24 17:00 04/21/24 09:23 Ferrous Sulfate [address] PO 325 mg BID CHANDNI Administration Glucagon 1 mg 04/16/24 22:57 Glucagon For Inj 1 Mg Vial IM PRN PRN Hypoglycemia Protocol Glucose 15 gm 04/16/24 22:57 Glucose Oral Gel 15 Gm Of Glucse In 37.5 Gm Tube PO PRN PRN Hypoglycemia Protocol Sodium Chloride 1,000 mls @ 50 mls/hr 04/16/24 19:50 04/19/24 10:58 Normal Saline Iv IV CONT Not Given .Q20H CHANDNI Dextrose 1,000 mls @ 100 mls/hr 04/16/24 22:57 Dextrose 5% 1,000 Ml IVPB PRN PRN Hypoglycemia Protocol Insulin Aspart 2 - 5 units 04/17/24 08:00 04/21/24 11:46 Insulin Aspart (*Bkc) 100 Units/Ml SUB-Q Not Given TIDWM [facility] Protocol Latanoprost 1 drop 04/17/24 09:00 04/21/24 09:23 Latanoprost 0.005% Op Soln 2.5 Ml Btl LEFT EYE 1 drop DAILY CHANDNI Administration Miconazole Nitrate 1 applic 04/18/24 09:00 04/21/24 09:23 Miconazole 2% Antifungal Ointment 56 Gm TOPICAL 1 applic Q12HR CHANDNI Administration Ondansetron HCl 4 mg 04/16/24 18:37 Ondansetron Inj 4 Mg/2 Ml Vial IV PUSH Q4H PRN Nausea Pantoprazole Sodium 40 mg 04/18/24 21:00 04/21/24 09:23 Pantoprazole 40 Mg Tablet PO 40 mg Q12HR CHANDNI Administration Sitagliptin Phosphate 100 mg 04/17/24 09:00 04/21/24 09:23 Sitagliptin Phosphate 100 Mg Tablet PO 100 mg DAILY CHANDNI Administration Timolol Maleate 1 drop 04/17/24 09:00 04/21/24 09:23 Timolol Maleate 0.5% Op Soln 5 Ml Bottle EACH EYE 1 drop Q12HR CHANDNI Administration Radiology Results: ITS Impressions Abdomen/Pelvis CT 04/16/24 18:05 IMPRESSION: Right upper quadrant mass at the head of the pancreas/hilum of the liver. Multiple hepatic masses suspicious for metastatic disease. Thoracic and upper abdominal lymphadenopathy. Peritoneal. Moderate ascites.
--- NOTE | 2024-04-21 13:34 | PM.PNNEP ---
Progress Note: A&P Assessment and Plan (1) Acute kidney injury: Code(s): N17.9 - Acute kidney failure, unspecified Status: Acute Assessment and Plan: no real improvement normal creatinine at baseline admission creatinine noted at 2.9mg/dl suspect 3rd spacing of fluid into abdomen and LEs from underlying malignancy resulting in prerenal azotemia state likely worsened by the use of diuretic therapy -- this is similar to patients who have liver disease (decreased effective circulating volume leading to chronic prerenal azotemia worsened by the need for diuretic therapy for control of volume status). evaluation to date: normal renal ultrasound CPK okay urine electrolytes pre-renal mild proteinuria s/p trial dose with IV albumin chased by IV bumex on 04/20/24 renal scan with delayed uptake and excretion (so more than just simple ATN) off IVFs (with the concern that continued use could worsen LE edema and ascites) follow trend of repeat labs and UOP (2) Hyponatremia: Code(s): E87.1 - Hypo-osmolality and hyponatremia Status: Acute Assessment and Plan: presumably related to BEVERLY/ARF and fluid retention cannot discount malignancy playing a role as well cortisol level and TSH okay follow trend for now (3) Edema: Code(s): R60.9 - Edema, unspecified Status: Acute Assessment and Plan: no DVTs by venous dopplers Echo noted suspect secondary to 3rd spacing from underlying malignancy leg elevation and compression/NEDRA wraps for now trial of diuresis on 04/20/24 (4) Hypercalcemia: Code(s): E83.52 - Hypercalcemia Status: Acute Assessment and Plan: slow improvement elevated on admission possibly related to malignancy? follow trend (5) Ascites, malignant: Code(s): R18.0 - Malignant ascites Status: Acute Assessment and Plan: s/p arge volume paracentesis on 04/18/24 secondary to underlying malignancy likely contributing to abdominal discomfort and shortness of breath -- symptomatically better following intervention (6) Hypertension: Qualifiers: Hypertension type: primary hypertension Qualified Code(s): I10 - Essential (primary) hypertension Code(s): I10 - Essential (primary) hypertension Status: Chronic Assessment and Plan: reasonable control follow trend of hemodynamics (7) Metastatic carcinoma: Code(s): C79.9 - Secondary malignant neoplasm of unspecified site Status: Acute Assessment and Plan: evaluation noted to date primary source not clear but suspicion falls on biliary tract versus gallbladder given associated transaminitis Hem/Onc following (8) Type 2 diabetes mellitus: Qualifiers: Diabetes mellitus complication status: without complication Diabetes mellitus catalyst concentration operator insulin use: without catalyst concentration operator use Qualified Code(s): E11.9 - Type 2 diabetes mellitus without complications Code(s): E11.9 - Type 2 diabetes mellitus without complications Status: Acute Assessment and Plan: follow accu-cheks glycemic control per hospitalists Will continue to follow. Subjective Date/time seen: 04/21/24 13:34 Interval history: Follow-up for acute kidney injury/acute renal failure. Renal function slightly worse (but this could be secondary to IV lasix yesterday); however, he reports some improvement in his breathing/respiratory status at this time; no other acute issues/events overnight or earlier this morning. Exam Narrative: General: mildly ill-appearing male in NAD Heart: normal S1 and S2; no rub Lungs: clear anteriorly; decreased at bases Abdomen: soft, moderate distension; positive bowel sounds Extremities: no cyanosis or clubbing; 2 - 3+ edema Skin: no nodules Objective Data Vital Signs Vital Signs: Vital Signs Temp Pulse Resp BP Pulse Ox O2 Del Method 04/21/24 13:00 97.3
--- NOTE | 2024-04-21 13:34 | P.PNNP_ITS ---
Progress Note: A&P Assessment and Plan (1) Acute kidney injury: Code(s): N17.9 - Acute kidney failure, unspecified Status: Acute Assessment and Plan: * no real improvement * normal creatinine at baseline * admission creatinine noted at 2.9mg/dl * suspect 3rd spacing of fluid into abdomen and LEs from underlying malignancy resulting in prerenal azotemia state likely worsened by the use of diuretic therapy -- this is similar to patients who have liver disease (decreased effective circulating volume leading to chronic prerenal azotemia worsened by the need for diuretic therapy for control of volume status). * evaluation to date: * normal renal ultrasound * CPK okay * urine electrolytes pre-renal * mild proteinuria * s/p trial dose with IV albumin chased by IV bumex on 04/20/24 * renal scan with delayed uptake and excretion (so more than just simple ATN) * off IVFs (with the concern that continued use could worsen LE edema and ascites) * follow trend of repeat labs and UOP (2) Hyponatremia: Code(s): E87.1 - Hypo-osmolality and hyponatremia Status: Acute Assessment and Plan: * presumably related to BEVERLY/ARF and fluid retention * cannot discount malignancy playing a role as well * cortisol level and TSH okay * follow trend for now (3) Edema: Code(s): R60.9 - Edema, unspecified Status: Acute Assessment and Plan: * no DVTs by venous dopplers * Echo noted * suspect secondary to 3rd spacing from underlying malignancy * leg elevation and compression/NEDRA wraps for now * trial of diuresis on 04/20/24 (4) Hypercalcemia: Code(s): E83.52 - Hypercalcemia Status: Acute Assessment and Plan: * slow improvement * elevated on admission * possibly related to malignancy? * follow trend (5) Ascites, malignant: Code(s): R18.0 - Malignant ascites Status: Acute Assessment and Plan: * s/p arge volume paracentesis on 04/18/24 * secondary to underlying malignancy * likely contributing to abdominal discomfort and shortness of breath -- symptomatically better following intervention (6) Hypertension: Qualifiers: Hypertension type: primary hypertension Qualified Code(s): I10 - Essential (primary) hypertension Code(s): I10 - Essential (primary) hypertension Status: Chronic Assessment and Plan: * reasonable control * follow trend of hemodynamics (7) Metastatic carcinoma: Code(s): C79.9 - Secondary malignant neoplasm of unspecified site Status: Acute Assessment and Plan: * evaluation noted to date * primary source not clear but suspicion falls on biliary tract versus gallbladder given associated transaminitis * Hem/Onc following (8) Type 2 diabetes mellitus: Qualifiers: Diabetes mellitus complication status: without complication Diabetes mellitus technician terminal and repeater insulin use: without group home use Qualified Code(s): E11.9 - Type 2 diabetes mellitus without complications Code(s): E11.9 - Type 2 diabetes mellitus without complications Status: Acute Assessment and Plan: * follow accu-cheks * glycemic control per hospitalists Will continue to follow. Subjective Date/time seen: 04/21/24 13:34 Interval history: Follow-up for acute kidney injury/acute renal failure. Renal function slightly worse (but this could be secondary to IV lasix yesterday); however, he reports some improvement in his breathing/respiratory
[2024-04-21 14:00] VITALS: BP 119/61; PULSE 90; RESP 17; TEMP 36.3; O2SAT 98
[2024-04-21 16:04] LABS: Glucose Point of Care 143 mg/dl (65-105)
--- NOTE | 2024-04-21 18:18 | WPDONCPN ---
Progress Note: A/P (1) Anemia Qualifiers: Anemia type: iron deficiency Code(s): D64.9 - Anemia, unspecified Status: Acute (2) Metastatic adenocarcinoma Code(s): C79.9 - Secondary malignant neoplasm of unspecified site Status: Acute - Additional Plan Metastatic adenocarcinoma status post paracentesis and the [place]. CT showed multiple liver masses and thoracic and upper abdominal lymphadenopathy. Abdominal MRI showed liver masses, abdominal lymphadenopathy and moderate volume of malignant ascites. There was distended gallbladder. Bone scan showed no metastatic disease. Tempus tumor origin test results are pending and should be available in next 2-3 days. I again discussed treatment/palliative care/hospice. Patient and son both wants to try treatment. We will proceed with MediPort placement while he is in the hospital and follow-up in the office to start palliative chemotherapy based on the final pathology. Malignant ascites. We will again perform therapeutic paracentesis prior to the discharge Ace Verma MD - Time Spent With Patient Total time spent is greater than 50% in coordination of care (as documented) at patient's floor/unit and/or counseling patient: 25 - 35 minutes Subjective Interval history: Adenocarcinoma of unknown primary Review of Systems - Review of Systems Patient is awake and alert. He has some abdominal distention with discomfort. Denies any chest pain. Breathing has improved after paracentesis. No other new complaints. - Neurologic Reports system reviewed and no additional complaints, except as documented Exam Vital signs: Temp Pulse Resp BP Pulse Ox O2 Del Method 36.3 C L 90 17 119/61 98 Room Air 04/21/24 14:00 04/21/24 14:00 04/21/24 14:04/21/24 14:04/21/24 14:04/21/24 08:00 Narrative: Lungs are clear auscultation bilaterally Cardiovascular regular rate rhythm no murmurs Abdomen distended with ascites Extremities no edema PN: Objective Data - Labs CBC & Chem 7: 04/21/24 05:23 04/21/24 05:23 Labs: Laboratory Results - last 24 hr 04/20/24 04/21/24 04/21/24 19:56 05:23 07:35 WBC 10.9 H RBC 3.77 L Hgb 11.1 L Hct 34.1 L MCV 90.5 MCH 29.4 MCHC 32.6 RDW 14.2 Plt Count 308 MPV 9.9 Immature Gran % (Auto) 1.2 H Neut % (Auto) 83.0 H Lymph % (Auto) 6.6 L [place] % (Auto) 8.2 Eos % (Auto) 0.7 Baso % (Auto) 0.3 Lymph # (Auto) 0.72 L [place] # (Auto) 0.9 H Eos # (Auto) 0.1 Baso # (Auto) 0.0 Abs Immat Gran (auto) 0.13 H Absolute Neuts (auto) 9.1 H Absolute Nucleated RBC 0.000 Nucleated RBC % 0.0 Sodium 129 L Potassium 4.3 Chloride 94 L Carbon Dioxide 29 Anion Gap 6 BUN 71 H Creatinine 3.60 H Estim Creat Clear Calc 21 Estimated GFR 17 L Glucose 135 H POC Capillary Glucose 156 H 134 H Calcium 11.8 H Phosphorus 4.7 H Magnesium 2.0 Total Bilirubin 2.4 H AST 83 H ALT 54 H Alkaline Phosphatase 711 H Total Protein 6.0 L Albumin 2.9 L 04/21/24 04/21/24 11:07 15:25 WBC RBC Hgb Hct MCV MCH MCHC RDW Plt Count MPV Immature Gran % (Auto) Neut % (Auto) Lymph % (Auto) [place] % (Auto) Eos % (Auto) Baso % (Auto) Lymph # (Auto) [place] # (Auto) Eos # (Auto) Baso # (Auto) Abs Immat Gran (auto) Absolute Neuts (auto) Absolute Nucleated RBC Nucleated RBC % Sodium Potassium Chloride Carbon Dioxide Anion Gap BUN Creatinine Estim Creat Clear Calc Estimated GFR Glucose POC Capillary Glucose 137 H 143 H Calcium Phosphorus Magnesium Total Bilirubin AST ALT Alkaline Phosphatase Total Protein Albumin
[2024-04-21 21:47] LABS: Glucose Point of Care 137 mg/dl (65-105)
[2024-04-21 22:00] VITALS: BP 123/73; PULSE 91; RESP 20; TEMP 36.8; O2SAT 91
[2024-04-22] VITALS (11 sets, daily range): BP systolic 112–132; BP diastolic 49–65; PULSE 90–114; RESP 12–20; TEMP 36.1–36.3; O2SAT 97–100
[2024-04-22 05:52] LABS: Basophils Absolute Auto 0.1 K/mm3 (0.0-0.1); Basophils Percent Auto 0.4 % (0.2-1.2); Eosinophils Absolute Auto 0.1 K/mm3 (0-0.3); Hemoglobin 11.9 g/dL (14.0-18.0); Immature Granulocyte Absolute 0.17 K/mm3 (0.00-0.031); Immature Granulocyte Percent A 1.5 % (0-0.5); Lymphocytes Absolute Auto 0.77 K/mm3 (0.9-3.2); Lymphocytes Percent Auto 6.7 % (18.3-44.2); Mean Corpuscular HGB Conc 32.2 g/dl (32-36); Mean Corpuscular Hemoglobin 29.5 pg (26-34); Mean Corpuscular Volume 91.8 fl (80-100); Mean Platelet Volume 9.8 fl (7.4-10.4); Monocytes Absolute Auto 0.9 K/mm3 (0.1-0.6); Monocytes Percent Auto 7.9 % (2.6-8.5); Neutrophils Absolute Auto 9.5 K/mm3 (1.3-6.7); Neutrophils Percent Auto 82.5 % (45.5-73.1); Platelet Count Result 343 k/mm3 (150-375); Red Blood Count 4.03 M/mm3 (4.6-6.20); Red Cell Distribution Width 14.1 % (11.5-14.5); White Blood Count 11.5 K/mm3 (4.5-10.0)
[2024-04-22 06:03] LABS: INR 1.3; Prothrombin Time 16.1 Seconds (11.1-14.7)
[2024-04-22 06:04] LABS: Alanine Aminotransferase 58 U/L (6-50); Albumin Level 3.2 g/dL (3.5-5.1); Alkaline Phosphatase 793 U/L (38-126); Anion Gap 10 mmol/L (4-12); Aspartate Amino Transferase 90 U/L (17-59); Bilirubin,Total 2.5 mg/dL (0.2-1.3); Blood Urea Nitrogen 71 mg/dL (9-20); Calcium 11.9 mg/dL (8.4-10.2); Carbon Dioxide 26 mmol/L (22-30); Chloride 94 mmol/L (98-107); Estimated CRCL calculation 21 ml/min; Estimated Glomerular Filt Rate 17; Glucose 126 mg/dL (65-110); Partial Thromboplastin Time 35.2 Seconds (22.3-36.8); Phosphorus 4.7 mg/dL (2.5-4.5); Potassium 4.4 mmol/L (3.4-5.0); Sodium 130 mmol/L (137-145)
--- NOTE | 2024-04-22 08:00 | PC.NURSE ---
Pt. down to pre-op at 0750.
[2024-04-22] MEDS: LACTATED RINGERS 1,000 ML 30 ML IV CONT (08:05)
[2024-04-22 08:16] LABS: Glucose Point of Care 121 mg/dl (65-105)
[2024-04-22 08:22] LABS: Glucose Point of Care 127 mg/dl (65-105)
--- NOTE | 2024-04-22 08:22 | WPDHPUPDATE1 ---
History and Physical Update Update Date/Time: 04/22/24 08:22 History and Physical has been reviewed, including an updated exam of the patient. There are NO changes in the patient's condition. Risks, benefits, and alternatives have been discussed and questions answered. Patient agrees to proceed with procedure.
--- NOTE | 2024-04-22 08:23 | PM.IMPN ---
Progress Note: A&P Assessment and Plan (1) Metastatic adenocarcinoma: Code(s): C79.9 - Secondary malignant neoplasm of unspecified site Status: Acute Assessment and Plan: Concern for biliary tract cancer versus gallbladder cancer d/t elevated liver enzymes - Abdomen/pelvis CT 04/16: Right upper quadrant mass at the head of the pancreas/hilum of the liver. Multiple hepatic masses suspicious for metastatic disease. Thoracic and upper abdominal lymphadenopathy. Peritoneal. Moderate ascites. - Abdomen MRI 04/19: Liver masses, abdominal lymphadenopathy, and moderate volume of malignant ascites, consistent with metastatic disease. Cholelithiasis. Gallbladder distention may secondary to fasting. - Tempus testing has been sent for additional testing as well as supraclavicular lymph node excisional biopsy - Port placed today by Dr. Arroyo for future chemotherapy - Oncology following and continuing work up (2) Ascites, malignant: Code(s): R18.0 - Malignant ascites Status: Acute Assessment and Plan: Patient endorses shortness of breath likely due to volume overload. - s/p nondiagnostic paracentesis on 04/18 yielding 5000 mL of brownish red fluid - s/p nondiagnostic paracentesis on - Patient will likely require therapeutic paracentesis following discharge (3) Acute renal failure: Qualifiers: Acute renal failure type: unspecified Qualified Code(s): N17.9 - Acute kidney failure, unspecified Code(s): N17.9 - Acute kidney failure, unspecified Status: Acute Assessment and Plan: Creatinine is normal at baseline. Per nephrology likely related to 3rd spacing of fluid into abdomen and LEs from underlying malignancy resulting in prerenal azotemia. This could potentially be patients new baseline. - BUN/Cr 71/3.6 on am labs - Renal US 04/17: normal kidneys without hydronephrosis - Urine electrolytes pre renal - Nephrology following. Per Dr. Abraham this can be followed outpatient and can restart lasix at time of discahrge. (4) Anemia: Qualifiers: Anemia type: iron deficiency Code(s): D64.9 - Anemia, unspecified Status: Acute Assessment and Plan: Labs showing iron deficiency anemia without evidence of bleeding. Possibly due to malignancy. - Venofer received on 04/18 - Started on 65 mg BID iron supplementation - Monitor (5) Hyponatremia: Code(s): E87.1 - Hypo-osmolality and hyponatremia Status: Acute Assessment and Plan: Likely related to BEVERLY/ARF, fluid retention, and possibly malignancy - cortisol level normal - TSH 2.580 - Monitor with daily labs - No neurological deficits at this time (6) Type 2 diabetes mellitus: Qualifiers: Diabetes mellitus complication status: without complication Diabetes mellitus extermination inspector insulin use: without group home use Qualified Code(s): E11.9 - Type 2 diabetes mellitus without complications Code(s): E11.9 - Type 2 diabetes mellitus without complications Status: Acute Assessment and Plan: - hypoglycemia protocol - POC blood glucose ACHS - home medication - metformin and sitagliptin - correct regimen ordered - low dose TIDWM and sitagliptin - A1C 12/20: 6.5 (7) Hypertension: Qualifiers: Hypertension type: primary hypertension Qualified Code(s): I10 - Essential (primary) hypertension Code(s): I10 - Essential (primary) hypertension Status: Chronic Assessment and Plan: Chronic, well controlled. - Furosemide 40 mg daily being held at this time - Monitor Time Spent With Patient Time with patient: 25 - 35 minutes Subjective Date/time seen: 04/22/24 08:23 Interval history: 78 y/o M with PMH of metastatic cancer of unknown origin, diabetes, glaucoma, and hypertension presents here with abdominal pain and shortness of breath. Patient is pleasant lying comfortably in bed with friend at bedside. He has no complaints at this time,
--- NOTE | 2024-04-22 08:26 | WPDANESEPPF ---
Anes - Initial Pre Proc Eval Procedure: Operation Date: 04/22/24 13:30 Proposed Procedures p Insertion Janett Cath - Mary Lou Arroyo MD Date/Time: 04/22/24 08:26 Surgeon: Nolvia Hicks PA-C Pre Op Diagnosis: Metastatic disease, Ascites, ARF, Hypercalcemia, H Patient Data Age: 78 Gender: M Height: 1.85 m Weight: 113.2 kg Last Vital Signs Temp 36.2 C L 04/22/24 06:00 Pulse 100 04/22/24 06:00 Resp 18 04/22/24 06:00 BP 126/62 04/22/24 06:00 Pulse Ox 100 04/22/24 06:00 O2 Del Method Room Air 04/21/24 08:00 Allergies Allergy/AdvReac Type Severity Reaction Status Date / Time No Known Allergies Allergy Verified 03/02/24 15:09 Home Medications Medication Instructions Recorded Confirmed Type latanoprost 0.005 % eye drops 1 drp LEFT EYE DAILY 06/29/22 04/16/24 History timolol maleate 0.5 % eye drops 1 drp EACH EYE BID 06/29/22 04/16/24 History metformin 500 mg tablet 500 mg PO BID #180 tabs 09/17/23 04/16/24 Rx furosemide 40 mg tablet 40 mg PO DAILY 04/16/24 04/16/24 History sitagliptin phosphate 100 mg 100 mg PO DAILY 04/16/24 04/16/24 History tablet (Januvia) Laboratory Tests 04/21/24 04/21/24 04/21/24 11:07 15:25 20:32 WBC RBC Hgb Hct MCV MCH MCHC RDW Plt Count MPV Immature Gran % (Auto) Neut % (Auto) Lymph % (Auto) [place] % (Auto) Eos % (Auto) Baso % (Auto) Lymph # (Auto) [place] # (Auto) Eos # (Auto) Baso # (Auto) Abs Immat Gran (auto) Absolute Neuts (auto) Absolute Nucleated RBC Nucleated RBC % % Immature Plt Fraction PT INR APTT Sodium Potassium Chloride Carbon Dioxide Anion Gap BUN Creatinine Estim Creat Clear Calc Estimated GFR Glucose POC Capillary Glucose 137 H mg/dl 143 H mg/dl 137 H mg/dl (65-105) (65-105) (65-105) Calcium Phosphorus Magnesium Total Bilirubin AST ALT Alkaline Phosphatase Total Protein Albumin 04/22/24 04/22/24 04/22/24 05:11 05:12 07:43 WBC 11.5 H K/mm3 (4.5-10.0) RBC 4.03 L M/mm3 (4.6-6.20) Hgb 11.9 L g/dL (14.0-18.0) Hct 37.0 L % (42.0-52.0) MCV 91.8 fl (80-100) MCH 29.5 pg (26-34) MCHC 32.2 g/dl (32-36) RDW 14.1 % (11.5-14.5) Plt Count Cancelled 343 k/mm3 (150-375) MPV Cancelled 9.8 fl (7.4-10.4) Immature Gran % (Auto) 1.5 H % (0-0.5) Neut % (Auto) 82.5 H % (45.5-73.1) Lymph % (Auto) 6.7 L % (18.3-44.2) [place] % (Auto) 7.9 % (2.6-8.5) Eos % (Auto) 1.0 % (0-4.4) Baso % (Auto) 0.4 % (0.2-1.2) Lymph # (Auto) 0.77 L K/mm3 (0.9-3.2) [place] # (Auto) 0.9 H K/mm3 (0.1-0.6) Eos # (Auto) 0.1 K/mm3 (0-0.3) Baso # (Auto) 0.1 K/mm3 (0.0-0.1) Abs Immat Gran (auto) 0.17 H K/mm3 (0.00-0.031) Absolute Neuts (auto) 9.5 H K/mm3 (1.3-6.7) Absolute Nucleated RBC 0.000 K/mm3 (0.0-0.012) Nucleated RBC % 0.0 % (0.0-0.2) % Immature Plt Fraction Cancelled PT 16.1 H Seconds (11.1-14.7) INR 1.3 APTT 35.2 Seconds (22.3-36.8) Sodium 130 L mmol/L (137-145) Potassium 4.4 mmol/L (3.4-5.0) Chloride 94 L mmol/L (98-107) Carbon Dioxide 26 mmol/L (22-30) Anion Gap 10 mmol/L (4-12) BUN 71 H mg/dL
[2024-04-22] MEDS: ceFAZolin 2 GM/D5W 50 ML 2 GM/50 ML BAG IVPB (08:46)
[2024-04-22] MEDS: BUPIVACAINE/EPINEPHRINE 0.5% 10 ML VIAL 30 ML INFILTRATE (09:08)
[2024-04-22] MEDS: HEPARIN SODIUM, PORCINE 10,000 UNITS/10 ML VIAL 3000 UNITS IV PUSH ×2 (09:09→09:10)
--- NOTE | 2024-04-22 09:17 | W.PM.PROC2 ---
Procedure Note - Detailed Date of Procedure 04/22/24 Pre-op Diagnosis Metastatic adenocarcinoma Post-op Diagnosis Same Procedure Performed placement of left subclavian venous access device under fluoroscopic guidance Surgeon Mary Lou Arroyo MD Anesthesia MAC and Local Indications 78-year-old male with a recently diagnosed metastatic adenocarcinoma necessitating access for urgent chemotherapy Findings first stick L SCV Description of Procedure Patient was brought into the operating room and placed in the supine position. After adequate induction of mac anesthesia, the patient was prepped and draped in normal sterile fashion. Time-out was then done to verify the patient's identity, as well as the procedure being performed. I began by making a small incision in the left chest, I then gained access into the left subclavian vein with an 18 gauge needle. I then placed the guidewire into the vein and confirmed placement via fluoroscopic guidance. I then locally anesthetized the area in the left chest. I then enlarged the incision around the guidewire including making a subcutaneous pocket inferiorly to allow placement of the port itself. I then placed a dilating sheath over the guidewire into the left subclavian vein via sterile Seldinger technique. This was once again done and confirmed via fluoroscopic guidance. I then removed the dilator and the guidewire, now just leaving the sheath in the vein. I then fed the previously flushed catheter into the left subclavian vein under fluoroscopic guidance. At approximately 22 cm, the catheter was noted to be near the atrial caval junction. I then peeled away the sheath, now just leaving the catheter in the vein. I then was able to easily draw and flush from the catheter. The catheter was cut to fit and attached to the port itself. The port was placed into the previously made subcutaneous pocket and sutured in with 0 Ethibond suture. Final fluoroscopic view showed the termination of the catheter at the atrial caval junction with a nice smooth curvature back to the port itself. I was able to gain access to the port with a Goddard needle and was able to easily draw and flush from the port. I then flushed 4 cc of a final heparin flush into the port. The incision was closed with 3 0 Vicryl suture in the subcutaneous tissue and the skin was closed with 4 O Monocryl subcuticular suture. Dermabond was then placed on wound. The patient tolerated the procedure well and will be sent to the recovery room in stable condition. Implants L SCV VAD Estimated Blood Loss 5 Urine Output 50 Drains No Packing No Pathology None sent Complications No immediate complications Condition Stable Disposition PACU [facility] Billing Surgery - Charge Forward: Surgery Billing
[2024-04-22 09:37] LABS: Glucose Point of Care 128 mg/dl (65-105)
--- NOTE | 2024-04-22 09:46 | PCPTNOTE ---
The patient treatment was not able to be completed at this time due to patient out of room for procedure to place a port and RN reports he will have a paracenteses today. Will plan to continue treatment per plan of care.
--- NOTE | 2024-04-22 10:08 | PC.NURSE ---
Pt. back to room 300 at 10:08.
--- NOTE | 2024-04-22 10:21 | PC.NURSE ---
Pt. down to ultrasound for paracentesis at 10:20.
[2024-04-22] MEDS: TIMOLOL MALEATE 0.5% OP SOLN 5 ML BOTTLE 1 DROP EACH EYE ×2 (11:22→20:09)
[2024-04-22] MEDS: LATANOPROST 0.005% OP SOLN 2.5 ML BTL 1 DROP LEFT EYE (11:22)
[2024-04-22] MEDS: SITagliptin PHOSPHATE 100 MG TABLET PO (11:23)
[2024-04-22] MEDS: FERROUS SULFATE 325 MG TABLET DR PO ×2 (11:23→16:22)
[2024-04-22] MEDS: PANTOPRAZOLE 40 MG TABLET PO ×2 (11:23→20:09)
--- NOTE | 2024-04-22 11:27 | PC.NURSE ---
Pt. back to room 300 after paracentesis.
[2024-04-22 11:42] LABS: Glucose Point of Care 129 mg/dl (65-105)
--- NOTE | 2024-04-22 12:38 | PM.PNNEP ---
Progress Note: A&P Assessment and Plan (1) Acute kidney injury: Code(s): N17.9 - Acute kidney failure, unspecified Status: Acute Assessment and Plan: no real improvement normal creatinine at baseline admission creatinine noted at 2.9mg/dl suspect 3rd spacing of fluid into abdomen and LEs from underlying malignancy resulting in prerenal azotemia state likely worsened by the use of diuretic therapy -- this situation is similar to patients who have liver disease (decreased effective circulating volume leading to chronic prerenal azotemia worsened by the need for diuretic therapy for control of volume status). evaluation to date: normal renal ultrasound CPK okay urine electrolytes pre-renal mild proteinuria s/p trial dose with IV albumin chased by IV bumex on 04/20/24 renal scan with delayed uptake and excretion (so more than just simple ATN) off IVFs (with the concern that continued use could worsen LE edema and ascites) may have to accept his current creatinine as possible new baseline... follow trend of repeat labs and UOP (2) Hyponatremia: Code(s): E87.1 - Hypo-osmolality and hyponatremia Status: Acute Assessment and Plan: relatively stable presumably related to BEVERLY/ARF and fluid retention cannot discount malignancy playing a role as well cortisol level and TSH okay follow trend for now (3) Edema: Code(s): R60.9 - Edema, unspecified Status: Acute Assessment and Plan: no DVTs by venous dopplers Echo noted suspect secondary to 3rd spacing from underlying malignancy leg elevation and compression/NEDRA wraps for now trial of diuresis on 04/20/24 (4) Hypercalcemia: Code(s): E83.52 - Hypercalcemia Status: Acute Assessment and Plan: slow improvement elevated on admission possibly related to malignancy? follow trend (5) Ascites, malignant: Code(s): R18.0 - Malignant ascites Status: Acute Assessment and Plan: s/p arge volume paracentesis on 04/18/24; plan another one today secondary to underlying malignancy likely contributing to abdominal discomfort and shortness of breath -- symptomatically better following intervention (6) Hypertension: Qualifiers: Hypertension type: primary hypertension Qualified Code(s): I10 - Essential (primary) hypertension Code(s): I10 - Essential (primary) hypertension Status: Chronic Assessment and Plan: reasonable control follow trend of hemodynamics (7) Metastatic carcinoma: Code(s): C79.9 - Secondary malignant neoplasm of unspecified site Status: Acute Assessment and Plan: evaluation noted to date primary source not clear but suspicion falls on biliary tract versus gallbladder given associated transaminitis Hem/Onc following (8) Type 2 diabetes mellitus: Qualifiers: 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 Subjective Date/time seen: 04/22/24 12:38 Interval history: Follow-up for acute kidney injury/acute renal failure. S/P port placement by Surgery earlier today for eventually initiation of chemotheray - tolerated procedure reasonably well; renal function/creatinine remains about the same; scheduled for another large volume paracentesis later today due to worsening abdominal distension secondary to re-accumulation of ascites. Exam Narrative: General: mildly ill-appearing male in NAD Heart: normal S1 and S2; no rub Lungs: clear anteriorly; decreased at bases Abdomen: soft, ++ distension; positive bowel sounds E
--- NOTE | 2024-04-22 12:38 | P.PNNP_ITS ---
Progress Note: A&P Assessment and Plan (1) Acute kidney injury: Code(s): N17.9 - Acute kidney failure, unspecified Status: Acute Assessment and Plan: * no real improvement * normal creatinine at baseline * admission creatinine noted at 2.9mg/dl * suspect 3rd spacing of fluid into abdomen and LEs from underlying malignancy resulting in prerenal azotemia state likely worsened by the use of diuretic therapy -- this situation is similar to patients who have liver disease (decreased effective circulating volume leading to chronic prerenal azotemia worsened by the need for diuretic therapy for control of volume status). * evaluation to date: * normal renal ultrasound * CPK okay * urine electrolytes pre-renal * mild proteinuria * s/p trial dose with IV albumin chased by IV bumex on 04/20/24 * renal scan with delayed uptake and excretion (so more than just simple ATN) * off IVFs (with the concern that continued use could worsen LE edema and ascites) * may have to accept his current creatinine as possible new baseline... * follow trend of repeat labs and UOP (2) Hyponatremia: Code(s): E87.1 - Hypo-osmolality and hyponatremia Status: Acute Assessment and Plan: * relatively stable * presumably related to BEVERLY/ARF and fluid retention * cannot discount malignancy playing a role as well * cortisol level and TSH okay * follow trend for now (3) Edema: Code(s): R60.9 - Edema, unspecified Status: Acute Assessment and Plan: * no DVTs by venous dopplers * Echo noted * suspect secondary to 3rd spacing from underlying malignancy * leg elevation and compression/NEDRA wraps for now * trial of diuresis on 04/20/24 (4) Hypercalcemia: Code(s): E83.52 - Hypercalcemia Status: Acute Assessment and Plan: * slow improvement * elevated on admission * possibly related to malignancy? * follow trend (5) Ascites, malignant: Code(s): R18.0 - Malignant ascites Status: Acute Assessment and Plan: * s/p arge volume paracentesis on 04/18/24; plan another one today * secondary to underlying malignancy * likely contributing to abdominal discomfort and shortness of breath -- symptomatically better following intervention (6) Hypertension: Qualifiers: Hypertension type: primary hypertension Qualified Code(s): I10 - Essential (primary) hypertension Code(s): I10 - Essential (primary) hypertension Status: Chronic Assessment and Plan: * reasonable control * follow trend of hemodynamics (7) Metastatic carcinoma: Code(s): C79.9 - Secondary malignant neoplasm of unspecified site Status: Acute Assessment and Plan: * evaluation noted to date * primary source not clear but suspicion falls on biliary tract versus gallbladder given associated transaminitis * Hem/Onc following (8) Type 2 diabetes mellitus: Qualifiers: Diabetes mellitus retirement insulin use: without intermediate designer use Diabetes mellitus complication status: without complication Qualified Code(s): E11.9 - Type 2 diabetes mellitus without complications Code(s): E11.9 - Type 2 diabetes mellitus without complications Status: Acute Assessment and Plan: * follow accu-cheks * glycemic control per hospitalists Will continue to follow. Subjective Date/time seen: 04/22/24 12:38 Interval history: Follow-up for acute kidney injury/acute renal failure. S/P port placement by
[2024-04-22] MEDS: CALCIUM CARBONATE (TUMS) 500 MG (200 MG ELEMENTAL) PO (14:19)
--- NOTE | 2024-04-22 14:45 | PCOTNOTE ---
Attempted to see Patient at this time. Patient in bed sleeping. Patient awoke and declined performing treatment this afternoon, stated very tired.
[2024-04-22 15:31] LABS: Glucose Point of Care 132 mg/dl (65-105)
[2024-04-22 19:59] LABS: Glucose Point of Care 132 mg/dl (65-105)
[2024-04-23 04:00] VITALS: BP 126/49; PULSE 93; RESP 13; TEMP 36.1; O2SAT 99
[2024-04-23 06:00] VITALS: BP 158/64
[2024-04-23 07:48] LABS: Glucose Point of Care 106 mg/dl (65-105)
[2024-04-23] MEDS: SITagliptin PHOSPHATE 100 MG TABLET PO (08:05)
[2024-04-23] MEDS: TIMOLOL MALEATE 0.5% OP SOLN 5 ML BOTTLE 1 DROP EACH EYE (08:05)
[2024-04-23] MEDS: LATANOPROST 0.005% OP SOLN 2.5 ML BTL 1 DROP LEFT EYE (08:05)
[2024-04-23] MEDS: FERROUS SULFATE 325 MG TABLET DR PO ×2 (08:05→16:38)
[2024-04-23] MEDS: PANTOPRAZOLE 40 MG TABLET PO (08:05)
[2024-04-23 08:47] LABS: Basophils Percent Auto 0.2 % (0.2-1.2); Eosinophils Absolute Auto 0.1 K/mm3 (0-0.3); Eosinophils Percent Auto 0.8 % (0-4.4); Hematocrit 35.6 % (42.0-52.0); Hemoglobin 11.6 g/dL (14.0-18.0); Immature Granulocyte Absolute 0.19 K/mm3 (0.00-0.031); Immature Granulocyte Percent A 1.9 % (0-0.5); Lymphocytes Absolute Auto 0.62 K/mm3 (0.9-3.2); Lymphocytes Percent Auto 6.1 % (18.3-44.2); Mean Corpuscular HGB Conc 32.6 g/dl (32-36); Mean Corpuscular Hemoglobin 30.1 pg (26-34); Mean Corpuscular Volume 92.5 fl (80-100); Mean Platelet Volume 10.1 fl (7.4-10.4); Monocytes Absolute Auto 0.8 K/mm3 (0.1-0.6); Monocytes Percent Auto 7.7 % (2.6-8.5); Neutrophils Absolute Auto 8.4 K/mm3 (1.3-6.7); Neutrophils Percent Auto 83.3 % (45.5-73.1); Platelet Count Result 300 k/mm3 (150-375); Red Blood Count 3.85 M/mm3 (4.6-6.20); Red Cell Distribution Width 14.3 % (11.5-14.5); White Blood Count 10.1 K/mm3 (4.5-10.0)
[2024-04-23 09:05] LABS: Alanine Aminotransferase 45 U/L (6-50); Albumin Level 2.8 g/dL (3.5-5.1); Alkaline Phosphatase 731 U/L (38-126); Anion Gap 10 mmol/L (4-12); Aspartate Amino Transferase 95 U/L (17-59); Bilirubin,Total 2.3 mg/dL (0.2-1.3); Blood Urea Nitrogen 70 mg/dL (9-20); Calcium 11.5 mg/dL (8.4-10.2); Carbon Dioxide 28 mmol/L (22-30); Chloride 93 mmol/L (98-107); Estimated CRCL calculation 22 ml/min; Estimated Glomerular Filt Rate 17; Glucose 101 mg/dL (65-110); Phosphorus 4.3 mg/dL (2.5-4.5); Potassium 4.2 mmol/L (3.4-5.0); Sodium 131 mmol/L (137-145)
[2024-04-23 11:22] LABS: Glucose Point of Care 131 mg/dl (65-105)
--- NOTE | 2024-04-23 11:34 | P.PNNP_ITS ---
Progress Note: A&P Assessment and Plan (1) Acute kidney injury: Code(s): N17.9 - Acute kidney failure, unspecified Status: Acute Assessment and Plan: * no real improvement * normal creatinine at baseline * admission creatinine noted at 2.9mg/dl * suspect 3rd spacing of fluid into abdomen and LEs from underlying malignancy resulting in prerenal azotemia state likely worsened by the use of diuretic therapy -- this situation is similar to patients who have liver disease (decreased effective circulating volume leading to chronic prerenal azotemia worsened by the need for diuretic therapy for control of volume status). * evaluation to date: * normal renal ultrasound * CPK okay * urine electrolytes pre-renal * mild proteinuria * s/p trial dose with IV albumin chased by IV bumex on 04/20/24 * renal scan with delayed uptake and excretion (so more than just simple ATN) * off IVFs (with the concern that continued use could worsen LE edema and ascites) * may have to accept his current creatinine as possible new baseline...I suppose it could improve with treatment of underlying malignancy * follow trend of repeat labs and UOP (2) Hyponatremia: Code(s): E87.1 - Hypo-osmolality and hyponatremia Status: Acute Assessment and Plan: * relatively stable if not improving * presumably related to BEVERLY/ARF and fluid retention * cannot discount malignancy playing a role as well * cortisol level and TSH okay * follow trend for now (3) Edema: Code(s): R60.9 - Edema, unspecified Status: Acute Assessment and Plan: * no DVTs by venous dopplers * Echo noted * suspect secondary to 3rd spacing from underlying malignancy * leg elevation and compression/NEDRA wraps for now * trial of diuresis on 04/20/24 (4) Hypercalcemia: Code(s): E83.52 - Hypercalcemia Status: Acute Assessment and Plan: * slow improvement * elevated on admission * possibly related to malignancy? * follow trend (5) Ascites, malignant: Code(s): R18.0 - Malignant ascites Status: Acute Assessment and Plan: * s/p arge volume paracentesis on 04/18/24 and 04/22/24 * secondary to underlying malignancy * likely contributing to abdominal discomfort and shortness of breath -- symptomatically better following intervention (6) Hypertension: Qualifiers: Hypertension type: primary hypertension Qualified Code(s): I10 - Essential (primary) hypertension Code(s): I10 - Essential (primary) hypertension Status: Chronic Assessment and Plan: * reasonable control * follow trend of hemodynamics (7) Metastatic carcinoma: Code(s): C79.9 - Secondary malignant neoplasm of unspecified site Status: Acute Assessment and Plan: * evaluation noted to date * primary source not clear but suspicion falls on biliary tract versus gallbladder given associated transaminitis * Hem/Onc following (8) Type 2 diabetes mellitus: Qualifiers: Diabetes mellitus complication status: without complication Diabetes mellitus assisted insulin use: without assisted use Qualified Code(s): E11.9 - Type 2 diabetes mellitus without complications Code(s): E11.9 - Type 2 diabetes mellitus without complications Status: Acute Assessment and Plan: * follow accu-cheks * glycemic control per hospitalists Will continue to follow. Subjective Date/time seen: 04/23/24 11:34 Interval history: Follow-up f
--- NOTE | 2024-04-23 11:34 | PM.PNNEP ---
Progress Note: A&P Assessment and Plan (1) Acute kidney injury: Code(s): N17.9 - Acute kidney failure, unspecified Status: Acute Assessment and Plan: no real improvement normal creatinine at baseline admission creatinine noted at 2.9mg/dl suspect 3rd spacing of fluid into abdomen and LEs from underlying malignancy resulting in prerenal azotemia state likely worsened by the use of diuretic therapy -- this situation is similar to patients who have liver disease (decreased effective circulating volume leading to chronic prerenal azotemia worsened by the need for diuretic therapy for control of volume status). evaluation to date: normal renal ultrasound CPK okay urine electrolytes pre-renal mild proteinuria s/p trial dose with IV albumin chased by IV bumex on 04/20/24 renal scan with delayed uptake and excretion (so more than just simple ATN) off IVFs (with the concern that continued use could worsen LE edema and ascites) may have to accept his current creatinine as possible new baseline...I suppose it could improve with treatment of underlying malignancy follow trend of repeat labs and UOP (2) Hyponatremia: Code(s): E87.1 - Hypo-osmolality and hyponatremia Status: Acute Assessment and Plan: relatively stable if not improving presumably related to BEVERLY/ARF and fluid retention cannot discount malignancy playing a role as well cortisol level and TSH okay follow trend for now (3) Edema: Code(s): R60.9 - Edema, unspecified Status: Acute Assessment and Plan: no DVTs by venous dopplers Echo noted suspect secondary to 3rd spacing from underlying malignancy leg elevation and compression/NEDRA wraps for now trial of diuresis on 04/20/24 (4) Hypercalcemia: Code(s): E83.52 - Hypercalcemia Status: Acute Assessment and Plan: slow improvement elevated on admission possibly related to malignancy? follow trend (5) Ascites, malignant: Code(s): R18.0 - Malignant ascites Status: Acute Assessment and Plan: s/p arge volume paracentesis on 04/18/24 and 04/22/24 secondary to underlying malignancy likely contributing to abdominal discomfort and shortness of breath -- symptomatically better following intervention (6) Hypertension: Qualifiers: Hypertension type: primary hypertension Qualified Code(s): I10 - Essential (primary) hypertension Code(s): I10 - Essential (primary) hypertension Status: Chronic Assessment and Plan: reasonable control follow trend of hemodynamics (7) Metastatic carcinoma: Code(s): C79.9 - Secondary malignant neoplasm of unspecified site Status: Acute Assessment and Plan: evaluation noted to date primary source not clear but suspicion falls on biliary tract versus gallbladder given associated transaminitis Hem/Onc following (8) Type 2 diabetes mellitus: Qualifiers: Diabetes mellitus complication status: without complication Diabetes mellitus fdc insulin use: without regional intermodal truck driver use Qualified Code(s): E11.9 - Type 2 diabetes mellitus without complications Code(s): E11.9 - Type 2 diabetes mellitus without complications Status: Acute Assessment and Plan: follow accu-cheks glycemic control per hospitalists Will continue to follow. Subjective Date/time seen: 04/23/24 11:34 Interval history: Follow-up for acute kidney injury/acute renal failure. Tolerated port placement as well as large volume paracentesis yesterday without any issues or problems; renal function remains essentially unchanged at this time; noted possible plans for discharge later today; no acute distress voiced at time. Exam Narrative: General: mildly ill-appearing male in NAD Heart: normal S1 and S2; no rub Lungs: clear anteriorly; decreased at bases Abdomen: soft, ++ distension; positive bowel sounds
--- NOTE | 2024-04-23 11:58 | PM.DS ---
DS: Admitting Diagnosis Discharge Date 04/23/24 Admitting Diagnosis metastatic adenocarcinoma ascites, malignant acute renal failure anemia hyponatremia type 2 diabetes hypertension DS: Discharge Diagnosis Discharge Diagnosis (1) Metastatic adenocarcinoma: Code(s): C79.9 - Secondary malignant neoplasm of unspecified site Status: Acute (2) Ascites, malignant: Code(s): R18.0 - Malignant ascites Status: Acute (3) Acute renal failure: Qualifiers: Acute renal failure type: unspecified Qualified Code(s): N17.9 - Acute kidney failure, unspecified Code(s): N17.9 - Acute kidney failure, unspecified Status: Acute (4) Anemia: Qualifiers: Anemia type: iron deficiency Code(s): D64.9 - Anemia, unspecified Status: Acute (5) Hyponatremia: Code(s): E87.1 - Hypo-osmolality and hyponatremia Status: Acute (6) Type 2 diabetes mellitus: Qualifiers: Diabetes mellitus complication status: without complication Diabetes mellitus terminal system operator insulin use: without skilled nursing use Qualified Code(s): E11.9 - Type 2 diabetes mellitus without complications Code(s): E11.9 - Type 2 diabetes mellitus without complications Status: Acute (7) Hypertension: Qualifiers: Hypertension type: primary hypertension Qualified Code(s): I10 - Essential (primary) hypertension Code(s): I10 - Essential (primary) hypertension Status: Chronic DS: Summary Hospital Course Reason for hospitalization: metastatic adenocarcinoma ascites, malignant acute renal failure anemia hyponatremia type 2 diabetes hypertension Hospital Course: 78 y/o M with PMH of metastatic cancer of unknown origin, diabetes, glaucoma, and hypertension presents here with abdominal pain and shortness of breath. An abdominal/pelvis CT showed RUQ mass at the head of the pancreas/hilum of the liver, multiple hepatic masses suspicious for metastatic disease. Thoracic and upper abdominal lymphadenopathy. Peritoneal. Moderate ascites. Patient is established with Dr. Verma and oncology was consulted. An abdomen MRI was obtained to further evaluate and revealed liver masses, abdominal lymphadenopathy, and moderate volume of malignant ascites, consistent with metastatic disease. Cholelithiasis. Gallbladder distention may secondary to fasting. Tempus testing has been sent for additional testing as well as supraclavicular lymph node excisional biopsy by oncology. During admission patient had a port placed by surgery, Dr. Arroyo on 04/22 for future chemotherapy. Patient continues to have bilateral lower extremity 3+ pitting edema and acute renal failure. Nephrology was consulted and states this is likely related to 3rd spacing of fluid into abdomen and LEs from underlying malignancy resulting in prerenal azotemia. This could potentially be patients new baseline. Patients hyponatremia is likely related to BEVERLY/ARF, fluid retention, and possibly malignancy. Per Dr. Abraham this can all be followed outpatient and patient can restart lasix and spironolactone at time of discharge. Patients shortness of breath was likely related to his ascites as following paracentesis his symptoms would improve. Discussed with oncology that patients ascites is quickly returning following paracentesis. During admission patient received two paracenteses, one on 04/18 and the other on 04/22. Per Dr. Verma patient will undergo weekly paracentesis at the oncology office. Patient was noted to be anemic and started on iron supplementation as well. Patient worked with PT/OT and was able to ambulate 170 feet using a wheeled walker. Prior to discharge patient denied shortness of breath, chest pain, nausea/vomiting. Patient discharged home with family and will have [facility] for PT/OT and detention services. She is to follow up with PCP and oncology in 1 week and nephrology in 2 weeks. Status at Discharge Function
--- NOTE | 2024-04-23 13:53 | P.PNAN_ITS ---
Anes - Prog Note Post-Op Date/Time: 04/23/24 13:53 Cardiovascular status: normal Respiratory status: normal Airway patency: baseline Mental status: baseline Post-Op hydration status: normal Vital Signs: Last Vital Signs Temp 36.1 C L 04/23/24 04:00 Pulse 93 04/23/24 04:00 Resp 13 04/23/24 04:00 BP 158/64 H 04/23/24 06:00 Pulse Ox 99 04/23/24 04:00 O2 Del Method Room Air 04/23/24 08:00 O2 Flow Rate 10 04/22/24 09:26 Pain Score (VAS): 0/10 I/O: Intake & Output 04/22/24 04/23/24 04/23/24 23:59 07:59 15:59 Intake Total 200 250 120 Output Total 300 Balance 200 -50 120 Laboratory Tests 04/23/24 06:36 04/23/24 06:36 04/22/24 04/22/24 04/23/24 15:21 19:52 06:36 WBC 10.1 H RBC 3.85 L Hgb 11.6 L Hct 35.6 L MCV 92.5 MCH 30.1 MCHC 32.6 RDW 14.3 Plt Count 300 MPV 10.1 Immature Gran % (Auto) 1.9 H Neut % (Auto) 83.3 H Lymph % (Auto) 6.1 L [place] % (Auto) 7.7 Eos % (Auto) 0.8 Baso % (Auto) 0.2 Lymph # (Auto) 0.62 L [place] # (Auto) 0.8 H Eos # (Auto) 0.1 Baso # (Auto) 0.0 Abs Immat Gran (auto) 0.19 H Absolute Neuts (auto) 8.4 H Absolute Nucleated RBC 0.000 Nucleated RBC % 0.0 Sodium 131 L Potassium 4.2 Chloride 93 L Carbon Dioxide 28 Anion Gap 10 BUN 70 H Creatinine 3.50 H Estim Creat Clear Calc 22 Estimated GFR 17 L Glucose 101 POC Capillary Glucose 132 H 132 H Calcium 11.5 H Phosphorus 4.3 Magnesium 2.0 Total Bilirubin 2.3 H AST 95 H ALT 45 Alkaline Phosphatase 731 H Total Protein 6.0 L Albumin 2.8 L 04/23/24 04/23/24 07:24 11:17 WBC RBC Hgb Hct MCV MCH MCHC RDW Plt Count MPV Immature Gran % (Auto) Neut % (Auto) Lymph % (Auto) [place] % (Auto) Eos % (Auto) Baso % (Auto) Lymph # (Auto) [place] # (Auto) Eos # (Auto) Baso # (Auto) Abs Immat Gran (auto) Absolute Neuts (auto) Absolute Nucleated RBC Nucleated RBC % Sodium Potassium Chloride Carbon Dioxide Anion Gap BUN Creatinine Estim Creat Clear Calc Estimated GFR Glucose POC Capillary Glucose 106 H 131 H Calcium Phosphorus Magnesium Total Bilirubin AST ALT Alkaline Phosphatase Total Protein Albumin Post-procedural complaints: none Patient Feedback: Patient satisfied with anesthetic care.
[2024-04-23 14:00] VITALS: BP 119/57; PULSE 93; RESP 16; TEMP 36; O2SAT 99
== END 2024-04-23 17:40 | disposition home health service (06) | DRG 824 ==
LOC: ANHED 19:11 → ANH3MEDSUR 19:28
PROVIDERS: Internal Medicine Nephrology; Nurse Practitioner Family; Student in an Organized Health Care Education/Training Program; Surgery; Admitting Provider Internal Medicine; Emergency Provider Physician Assistant; PCP Nurse Practitioner Adult Health; Visit Provider Student in an Organized Health Care Education/Training Program
PROC: 0JH60WZ Insertion of Totally Implantable Vascular Access Device into Chest Subcutaneous Tissue and Fascia, Open Approach (ICD-10-PCS; principal; 2024-04-22 13:30)
DX: C77.2 Secondary and unspecified malignant neoplasm of intra-abdominal lymph nodes (principal); C78.7 Secondary malignant neoplasm of liver and intrahepatic bile duct; E87.1 Hypo-osmolality and hyponatremia; R18.0 Malignant ascites; N17.9 Acute kidney failure, unspecified; C80.1 Malignant (primary) neoplasm, unspecified; D50.9 Iron deficiency anemia, unspecified; E83.52 Hypercalcemia; K80.20 Calculus of gallbladder without cholecystitis without obstruction; E11.9 Type 2 diabetes mellitus without complications; I10 Essential (primary) hypertension; M79.89 Other specified soft tissue disorders; H40.9 Unspecified glaucoma; R74.01 Elevation of levels of liver transaminase levels
CPT/HCPCS: 36415; 49083; 71046; 74176; 74183; 76775; 76870; 77001; 78707; 80053; 81001; 82330; 82533; 82550; 82570; 82607; 82728; 82746; 82948; 83540; 83550; 83605; 83690; 83735; 83880; 83930; 83935; 83970; 84100; 84156; 84300; 84443; 84540; 84550; 85025; 85610; 85730; 93005; 93970; 93976; 96360; 96361; 97110; 97161; 97165; 97530; 97535; 99285; A9270; A9562; A9577; C1788; C8929; G0378; J0690; J1100; J1644; J1756; J1939; J2405; J2470; J2704; J3010; J7030; J7050; J7120; P9047; Q9957

== ENCOUNTER 2024-04-27 10:32 | Outpatient (CLI) | payer MEDICARE, OTHER, SELFPAY ==
--- NOTE | ~2024-04-27 | US_ITS ---
EXAMINATION: US paracentesis abd w/image DATE: 04/27/2024 12:03 INDICATION: Ascites. Pancreatic neoplasm. TECHNIQUE: The procedure and its risks and benefits were discussed with the patient. Potential risks discussed included bleeding and infection. The skin was prepped and draped in sterile fashion. 1% lid ocaine was used for local anesthesia. Under ultrasound guidance, a 5 Fr catheter with trochar was adv anced into the ascites in the left lower quadrant. Fluid was aspirated into vacuum bottles. The jvoanni ter was removed, and a dressing was applied. There were no immediate complications. FINDINGS: Ultrasound images demonstrate ascites and the catheter within the fluid. IMPRESSION: 1. Successful ultrasound-guided paracentesis yielding 5000 mL of reddish-orange fluid. Reviewed, dictated and finalized at location A. IMPRESSION: 1. Successful ultrasound-guided paracentesis yielding 5000 mL of reddish-orang e fluid.
== END 2024-04-27 10:33 | disposition home or self-care (01) ==
PROVIDERS: Visit Provider Internal Medicine Hematology & Oncology
DX: C25.9 Malignant neoplasm of pancreas, unspecified (principal)
CPT/HCPCS: 49083

== ENCOUNTER 2024-04-28 11:27 | Outpatient (NON) | payer MEDICARE, OTHER, SELFPAY ==
[2024-04-28 12:34] LABS: Alanine Aminotransferase 41 U/L (6-50); Albumin Level 2.6 g/dL (3.5-5.1); Alkaline Phosphatase 796 U/L (38-126); Anion Gap 9 mmol/L (4-12); Aspartate Amino Transferase 87 U/L (17-59); Bilirubin,Total 2.4 mg/dL (0.2-1.3); Blood Urea Nitrogen 64 mg/dL (9-20); Calcium 12.1 mg/dL (8.4-10.2); Carbon Dioxide 24 mmol/L (22-30); Chloride 96 mmol/L (98-107); Estimated Glomerular Filt Rate 18; Glucose 114 mg/dL (65-110); Potassium 4.7 mmol/L (3.4-5.0); Sodium 129 mmol/L (137-145)
== END 2024-04-28 11:28 | disposition home or self-care (01) ==
LOC: HOME HLTH 11:31
PROVIDERS: PCP Nurse Practitioner Adult Health; Referring Provider Internal Medicine Nephrology; Visit Provider Nurse Practitioner Adult Health
DX: N17.9 Acute kidney failure, unspecified (principal); E87.1 Hypo-osmolality and hyponatremia
CPT/HCPCS: 80053

== ENCOUNTER 2024-04-30 16:42 | Inpatient (IN) | payer MEDICARE, OTHER, SELFPAY ==
[2024-04-30] VITALS (14 sets, daily range): BP systolic 111–123; BP diastolic 51–71; PULSE 107–118; RESP 15–25; TEMP 36.4–36.6; O2SAT 94–100
--- NOTE | ~2024-04-30 | XR_ITS ---
XR chest 2V DATE: 05/01/2024 01:07 INDICATION: Shortness of breath. Fluid overload. TECHNIQUE: AP and lateral views COMPARISON: 04/22/2024 portable AP chest at 0935 hours FINDINGS: Left-sided Port-A-Cath is again noted with its distal tip overlying the lower aspect of the superior vena cava. There is patchy infiltrate or atelectasis at the lung bases, predominantly on the left. The lungs otherwise appear clear. No pleural effusion or pulmonary vascular congestion or pneumothora x is detected. Heart size appears within normal limits. Aortic arch calcification. IMPRESSION: Bibasilar infiltrate or atelectasis, primarily on the left Reviewed, dictated and finalized at location A.
--- NOTE | ~2024-04-30 | US_ITS ---
EXAMINATION: US paracentesis abd w/image DATE: 05/06/2024 15:41 INDICATION: Malignant ascites TECHNIQUE: The procedure and its risks and benefits were discussed with the patient. Potential risks discussed included bleeding and infection. The skin was prepped and draped in sterile fashion. 1% lid ocaine was used for local anesthesia. Under ultrasound guidance, a 5 Fr catheter with trochar was adv anced into the ascites in the left lower quadrant. Fluid was aspirated into vacuum bottles. The jovanni ter was removed, and a dressing was applied. There were no immediate complications. FINDINGS: Ultrasound images demonstrate ascites and the catheter within the fluid. IMPRESSION: 1. Successful ultrasound-guided paracentesis yielding 5000 mL of brownish fluid. Reviewed, dictated and finalized at location A. IMPRESSION: 1. Successful ultrasound-guided paracentesis yielding 5000 mL of brownish flui d.
--- NOTE | ~2024-04-30 | US_ITS ---
EXAMINATION: US paracentesis abd w/image DATE: 05/02/2024 10:22 INDICATION: Ascites. TECHNIQUE: The procedure and its risks and benefits were discussed with the patient. Potential risks discussed included bleeding and infection. The skin was prepped and draped in sterile fashion. 1% lid ocaine was used for local anesthesia. Under ultrasound guidance, a 5 Fr catheter with trochar was adv anced into the ascites in the left lower quadrant. Fluid was aspirated into vacuum bottles. The jovanni ter was removed, and a dressing was applied. There were no immediate complications. FINDINGS: Ultrasound images demonstrate ascites and the catheter within the fluid. IMPRESSION: 1. Successful ultrasound-guided paracentesis yielding 5000 mL of brownish fluid. Reviewed, dictated and finalized at location A. IMPRESSION: 1. Successful ultrasound-guided paracentesis yielding 5000 mL of brownish flui d.
--- NOTE | ~2024-04-30 | US_ITS ---
EXAMINATION: US renal BI DATE: 05/01/2024 13:26 INDICATION: Elevated creatinine TECHNIQUE: Multiple ultrasound grayscale images of the kidneys were obtained. COMPARISON: None. FINDINGS: The right kidney measures 12.7 x 5.2 x 4.8 cm. The left kidney measures 10.8 x 5.2 x 4.3 cm. The kidn eys demonstrate normal echogenicity. There is no hydronephrosis in either kidney. Approximately 5 mm echogenic and shadowing stone in the mid left kidney. The bladder is nonvisualized, likely decompres sed with a Manuel catheter reportedly in place. There is a small amount of ascites in the left and rig ht upper quadrants. IMPRESSION: 1. Nonobstructing stone in the mid left kidney. Otherwise normal kidneys with no hydronephrosis. 2. Small amount of ascites in the left or right upper quadrant.. Reviewed, dictated and finalized at location A.
--- NOTE | 2024-04-30 20:13 | PC.NURSE ---
pt c/o feeling thirsty and dry mouth. Ice chips given
--- NOTE | 2024-04-30 21:45 | ED.GENADULT ---
HPI - General Adult General Chief complaint: Unspecified Stated complaint: not eating or drinking Time Seen by Provider: 04/30/24 21:31 Source: patient and family History of Present Illness HPI narrative: This is a 78 year old male that presents to the ER for difficulty eating. Reports only able to eat a small amount of applesauce and drink not even 20 ounces of water daily. This has been worsening over the last week. History of metastatic cancer, unsure of primary source. His oncologist is Dr. Verma. His abdomen is distended. His last paracentesis was 5 days ago. Reports some difficulty breathing due to abdominal distension. Reports urinary frequency. He is supposed to be starting chemotherapy next week. Denies fever, vomiting. Related Data Home Medications Medication Instructions Recorded Confirmed latanoprost 0.005 % eye drops 1 drp LEFT EYE DAILY 06/29/22 04/16/24 timolol maleate 0.5 % eye drops 1 drp EACH EYE BID 06/29/22 04/16/24 furosemide 40 mg tablet 40 mg PO DAILY 04/16/24 04/16/24 sitagliptin phosphate 100 mg 100 mg PO DAILY 04/16/24 04/16/24 tablet (Januvia) Allergies Allergy/AdvReac Type Severity Reaction Status Date / Time No Known Allergies Allergy Verified 03/02/24 15:09 Review of Systems Review of Systems: CONSTITUTIONAL: Denies fever ENT: Reports sore throat GASTROINTESTINAL: Reports abdominal pain, nausea, vomiting GENITOURINARY: Denies dysuria NEUROLOGIC: Reports generalized weakness. All systems reviewed & are unremarkable except as noted in HPI and below PMFSH Past Medical History Medical History COVID-30 October 2020 Diabetes Glaucoma Hypertension Metastatic carcinoma Surgical History Surgical History H/O cataract removal with insertion of prosthetic lens Family History Family History Father Heart disease Social History Social History Smoking status: Never smoker Alcohol intake: never Substance use: never Do You Feel Safe in your Home?: Yes Lack of Transportation: No Lack of Food: Never True Current Housing: I Have Housing Concerned About Future Housing: No Difficulty Paying Gas/Electric Bills: No Difficulty Paying for Meds: No Currently Unemployed: No Education: Trade/Vocational Certificate Difficulty w/ Childcare or Family Care: No Spiritual care concerns: No Exam Narrative: GENERAL: Chronically ill-appearing, well-nourished, and in no acute distress. HEAD: Normocephalic, atraumatic. EYES: EOMI. ENT: Nares clear, no rhinorrhea or epistaxis. Mucous membranes dry. Oropharynx with erythema with white patches. NECK: Supple. No JVD CHEST: Clear to auscultation. No respiratory distress. No wheezes rales or rhonchi HEART: Regular rate and rhythm. No murmur heard. Normal peripheral pulses. ABDOMEN: Soft, nontender, distended, normal active bowel sounds. EXTREMITIES: Normal range of motion. 2+ pitting edema to the bilateral lower extremities. SKIN: Warm, dry, no rash. NEURO: No focal deficits. Alert and oriented x3. PSYCH: Normal mood and affect Course Course Emergency Course: Patient updated on his workup and recommendation for admission Consultations Consultation #1: Spoke with hospitalist about patient and workup who accepts admission Date: 05/01/24 Vital Signs Vital signs: Vital Signs Temperature 97.5 F L 04/30/24 16:43 Pulse Rate 107 H 04/30/24 16:43 Respiratory Rate 15 04/30/24 16:43 Blood Pressure 111/51 L 04/30/24 16:43 Pulse Oximetry 97 04/30/24 16:43 Oxygen Delivery Room Air 04/30/24 16:43 Temperature 98 F 04/30/24 20:10 Pulse Rate 111 H 04/30/24 22:45 Respiratory Rate 20 04/30/24 22:58 Blood Pressure 121/57 L 04/30/24 23:01 Pulse Oximetry 100 04/30/24 22:
[2024-04-30 22:50] LABS: Basophils Percent Auto 0.4 % (0.2-1.2); Eosinophils Percent Auto 0.4 % (0-4.4); Hematocrit 40.2 % (42.0-52.0); Hemoglobin 13.4 g/dL (14.0-18.0); Immature Granulocyte Absolute 0.22 K/mm3 (0.00-0.031); Lymphocytes Absolute Auto 0.79 K/mm3 (0.9-3.2); Lymphocytes Percent Auto 7.1 % (18.3-44.2); Mean Corpuscular HGB Conc 33.3 g/dl (32-36); Mean Corpuscular Hemoglobin 30.5 pg (26-34); Mean Corpuscular Volume 91.6 fl (80-100); Mean Platelet Volume 9.9 fl (7.4-10.4); Monocytes Absolute Auto 0.8 K/mm3 (0.1-0.6); Monocytes Percent Auto 6.8 % (2.6-8.5); Neutrophils Absolute Auto 9.3 K/mm3 (1.3-6.7); Neutrophils Percent Auto 83.3 % (45.5-73.1); Platelet Count Result 315 k/mm3 (150-375); Red Blood Count 4.39 M/mm3 (4.6-6.20); White Blood Count 11.2 K/mm3 (4.5-10.0)
[2024-04-30 23:09] LABS: INR 1.3; Prothrombin Time 16.5 Seconds (11.1-14.7)
[2024-04-30 23:11] LABS: Partial Thromboplastin Time 25.5 Seconds (22.3-36.8)
--- NOTE | 2024-04-30 23:12 | ECG_ITS ---
Test Date: 2024-04-30 23:25:23 Measurements Intervals Devers Rate: 112 P: 69 TX: 147 QRS: -58 QRSD: 142 T: 32 QT: 300 QTc: 411 Interpretive Statements SINUS TACHYCARDIA RIGHT BUNDLE BRANCH BLOCK LEFT ANTERIOR FASCICULAR BLOCK HIGH LATERAL INFARCT, AGE INDETERMINATE BASELINE ARTIFACT- I, III, AVR, AVL, AVF ABNORMAL ECG Compared to ECG 04/16/2024 17:39:33 HEART RATE HAS INCREASED Left anterior fascicular block now present Electronically Signed On 05-01-2024 07:36:46 CDT by Isaias Manrique D.O.
[2024-05-01] VITALS (18 sets, daily range): BP systolic 95–132; BP diastolic 40–68; PULSE 92–112; RESP 14–26; TEMP 36.1–37.1; O2SAT 96–100; BMI 28.1
[2024-05-01 00:21] LABS: Alanine Aminotransferase 55 U/L (6-50); Albumin Level 3.1 g/dL (3.5-5.1); Alkaline Phosphatase 1024 U/L (38-126); Anion Gap 9 mmol/L (4-12); Aspartate Amino Transferase 105 U/L (17-59); Bilirubin,Total 2.8 mg/dL (0.2-1.3); Blood Urea Nitrogen 72 mg/dL (9-20); Calcium 12.9 mg/dL (8.4-10.2); Carbon Dioxide 26 mmol/L (22-30); Chloride 94 mmol/L (98-107); Estimated CRCL calculation 18 ml/min; Estimated Glomerular Filt Rate 14; Glucose 101 mg/dL (65-110); Potassium 5.3 mmol/L (3.4-5.0); Sodium 129 mmol/L (137-145)
[2024-05-01] MEDS: FLUCONAZOLE 200 MG/NACL 100 ML 200 MG/100 ML BAG 100 MG IVPB (00:47)
[2024-05-01] MEDS: SODIUM CHLORIDE 0.9% IV 1,000 ML 125 ML IV CONT (01:56)
[2024-05-01] MEDS: SODIUM CHLORIDE 0.9% IV 1,000 ML 999 ML IV CONT (01:56)
--- NOTE | 2024-05-01 05:15 | PC.NURSE ---
This patient was admitted to [facility]. Patient/family oriented to hospital policies and general routines including ID bracelet, bed and alarms, visiting hours, pain management, procedures, bathroom and other care routines, personal items, smoking policy, room service/diet, and visiting hours. Information on how to activate the Rapid Response Team has been discussed. Patient/Family are encouraged to report perceived risks to care and to ask questions if they do not understand what they are told or what they should do.
--- NOTE | 2024-05-01 07:35 | PM.IMHP ---
H&P: HPI History of Present Illness Date/Time: 05/01/24 07:35 Chief Complaint: decreased appetite Narrative: 78 y.o male with PMH/o metastatic adenocarcinoma, acute renal failure, anemia, hyponatremnia (Na 128), T2dm, HTN, ascites, glaucoma Of note- pt was discharge from the hospital on 04/23. During that admission, he had a port placed by surgery, Dr. Arroyo on 04/22 for future chemotherapy. Patients hyponatremia is likely related to BEVERLY/ARF, fluid retention, and possibly malignancy. Per Dr. Abraham, pt will be followed outpatient and patient can restart lasix and spironolactone at time of discharge. Patients shortness of breath was likely related to his ascites as following paracentesis his symptoms would improve. During that admission patient received two paracenteses, one on 04/18 and the other on 04/22. Per Dr. Verma patient will undergo weekly paracentesis at the oncology office. Patient was noted to be anemic and started on iron supplementation as well. He presented to ED for difficulties eating -had been worsening over the last week, drinks very little - about 20 ounces of water if that. His oncologist is Dr. Verma. His abdomen is distended. His last paracentesis was 5 days ago. Reports some difficulty breathing due to abdominal distension. Reports urinary frequency ua was collected in ed. He is supposed to be starting chemotherapy next week. Denies fever, vomiting. We discussed code status and he chose to be a full code at this time. We need to discuss PEG tube placement tomorrow PMFSH Past Medical History Medical History COVID-30 October 2020 Diabetes Glaucoma Hypertension Metastatic carcinoma Surgical History Surgical History H/O cataract removal with insertion of prosthetic lens Family History Family History Father Heart disease Social History Social History Smoking status: Never smoker Alcohol intake: never Substance use: never Substance use type: does not use Do You Feel Safe in your Home?: Yes Lack of Transportation: No Lack of Food: Never True Current Housing: I Have Housing Concerned About Future Housing: No Difficulty Paying Gas/Electric Bills: No Difficulty Paying for Meds: No Currently Unemployed: No Education: Trade/Vocational Certificate Difficulty w/ Childcare or Family Care: No Spiritual care concerns: No Meds Home Medications and Allergies Home Medications Medication Instructions Recorded Confirmed Type latanoprost 0.005 % eye drops 1 drp LEFT EYE DAILY 06/29/22 05/01/24 History (Xalatan) timolol maleate 0.5 % eye drops 1 drp EACH EYE BID 06/29/22 05/01/24 History metformin 500 mg tablet 500 mg PO BID #180 tabs 09/17/23 05/01/24 Rx furosemide 40 mg tablet 40 mg PO DAILY 04/16/24 05/01/24 History sitagliptin phosphate 100 mg 100 mg PO DAILY 04/16/24 05/01/24 History tablet (Januvia) ferrous sulfate 325 mg (65 mg 325 mg PO BID #60 tabs 04/23/24 05/01/24 Rx iron) tablet,delayed release collagenase clostridium histo. 250 1 applic topical DAILY PRN 04/28/24 05/01/24 Rx unit/gram topical ointment (Santyl) incontinence #90 grams dorzolamide 22.3 mg-timolol 6.8 1 drp EACH EYE DAILY 05/01/24 05/01/24 History mg/mL eye drops (Cosopt) potassium chloride 20 mEq 20 meq PO DAILY 05/01/24 05/01/24 History tablet,extended release (K-Tab) spironolactone 25 mg tablet 25 mg PO QAM 05/01/24 05/01/24 History (Aldactone) Allergies Allergy/AdvReac Type Severity Reaction Status Date / Time No Known Allergies Allergy Verified 03/02/24 15:09 Vital Signs Vital Signs - 24 hr 04/30/24 16:43 04/30/24 20:10 04/30/24 20:42 Temperature 97.5 F L 98 F Pulse Rate 107 H 118 H 109 H Respiratory Rate 15 16 22 H Blood Pressure 111/51 L
[2024-05-01] MEDS: NYSTATIN 100,000 UNITS/ML SUSP 5 ML ORAL.SUSP PO ×4 (09:34→20:50)
--- NOTE | 2024-05-01 09:58 | PM.CNNEP ---
Assessment and Plan Assessment and plan (1) Acute kidney injury: Code(s): N17.9 - Acute kidney failure, unspecified Status: Acute Assessment and Plan: the patient has acute kidney injury on top of And already high creatinine.. His baseline creatinine had been normal before April, was stable in the threes at the end of last visit, and now is up to 4.1. I suspect that the patient has renal failure due to prerenal factors Due to 3rd spacing cousin of the cancer. renal venous hypertension could be playing a role as well. He also has a high calcium which could contribute as well. Other causes of elevated creatinine were evaluated last admission. Will work on correcting the calcium, hold diuretics, continue paracentesis as needed, and follow the kidney function. (2) Type 2 diabetes mellitus: Qualifiers: Diabetes mellitus complication status: without complication Diabetes mellitus penitentiary insulin use: without penitentiary use Qualified Code(s): E11.9 - Type 2 diabetes mellitus without complications Code(s): E11.9 - Type 2 diabetes mellitus without complications Status: Acute Assessment and Plan: the patient is Accu-Cheks. (3) Hypertension: Qualifiers: Hypertension type: primary hypertension Qualified Code(s): I10 - Essential (primary) hypertension Code(s): I10 - Essential (primary) hypertension Status: Chronic Assessment and Plan: Blood pressure is under good control (4) Metastatic disease: Qualifiers: Area of secondary neoplastic involvement: unspecified site Qualified Code(s): C79.9 - Secondary malignant neoplasm of unspecified site Code(s): C79.9 - Secondary malignant neoplasm of unspecified site Status: Chronic Assessment and Plan: The patient is going to start chemotherapy soon (5) Transaminitis: Code(s): R74.01 - Elevation of levels of liver transaminase levels Status: Acute Assessment and Plan: liver enzymes high likely due to liver Mets (6) Edema: Code(s): R60.9 - Edema, unspecified Status: Acute Assessment and Plan: most likely due to metastatic disease and liver involved (7) Hypercalcemia: Code(s): E83.52 - Hypercalcemia Status: Acute Assessment and Plan: most likely this is due to metastatic disease in the bones. I will check a urine calcium to creatinine ratio which I expect to be high. Will check a PTH and PTHrp as well will give pamidronate. (8) Hyponatremia: Code(s): E87.1 - Hypo-osmolality and hyponatremia Status: Acute Assessment and Plan: sodium level is mildly low. Is about the same as it has been in the past. Will continue voluntary fluid restriction. He is not taking that much in any way. TSH and cortisol were okay in the past. He is not on any medications that would do this other than the diuretics. Most likely due to his cancer it is not low enough to use demeclocycline because this is very expensive anyway. History of Present Illness Reason for Consult Consult date: 05/01/24 Chief Complaint Chief complaint: Dehydration, Oropharyngeal candidiasis History of Present Illness Narrative: Ken is a very pleasant but unfortunate 78-year-old gentleman who has multiple medical problems including diabetes, glaucoma, hypertension, metastatic cancer, hyponatremia, and renal insufficiency. He was in the hospital in early April because a higher than usual creatinine. His baseline creatinine had been normal. He was taking diuretics because of swelling and ascites buildup. It was felt that most likely his elevated creatinine was due to pre renal azotemia because of the diuretics since most of the swelling was third spacing localized to the peritoneal cavity and his legs because of his cancer. diuretics were held paracentesis was performed but optimizing everything the kidney still did no
[2024-05-01 10:00] LABS: Glucose Point of Care 99 mg/dl (65-105)
[2024-05-01 11:44] LABS: Add Urine Microscopic? YES; Appearance Urine Clear (Clear); Bacteria Urine None Seen /hpf; Bilirubin Urine 1+ (Negative); Blood Urine Negative (Negative); Color Urine Dark Yellow (Yellow); Glucose Urine UA Negative (Negative); Ketones Urine Trace mg/dL (Negative); Leukocyte Esterase Ur Negative LEU/UL (Negative); Nitrate Urine Negative (Negative); Non Pathogenic Casts 0-2; Protein Urine Trace mg/dL (Negative); RBC Urine 0-2 /hpf (0-2); Specific Grav Ur 1.014 (1.001-1.035); Squamous Epithelial Cell Urine None Seen /hpf (Few); WBC Urine 0-5 /hpf (0-3); pH Urine 5.5 (5.0-9.0)
[2024-05-01 12:02] LABS: Glucose Point of Care 101 mg/dl (65-105)
[2024-05-01 12:24] LABS: Creatine Kinase 42 U/L (55-170)
[2024-05-01 12:29] LABS: Creatinine Urine 97.6 mg/dL; Total Protein Urine Random 30 mg/dL; Ur Ttl Prot Creatinine Ratio 0.31 mg/mg (0-0.20); Urea Random Urine 720 MG/DL
[2024-05-01 12:33] LABS: Sodium Urine Random 11 meq/L
[2024-05-01] MEDS: PAMIDRONATE DISODIUM 30 MG in DEXTROSE 5% IN WATER 500 ML 125 MG IVPB (12:37)
[2024-05-01 17:22] LABS: Glucose Point of Care 137 mg/dl (65-105)
[2024-05-01] MEDS: FERROUS SULFATE 325 MG TABLET DR PO (18:34)
[2024-05-01] MEDS: SODIUM CHLORIDE 0.9% IV 1,000 ML 50 ML IV CONT ×2 (18:34→20:51)
[2024-05-01] MEDS: TIMOLOL MALEATE 0.5% OP SOLN 5 ML BOTTLE 1 DROP EACH EYE (20:51)
[2024-05-01 21:38] LABS: Glucose Point of Care 132 mg/dl (65-105)
[2024-05-01] MEDS: MELATONIN 5 MG TABLET PO (22:50)
[2024-05-02] VITALS (10 sets, daily range): BP systolic 114–129; BP diastolic 51–66; PULSE 85–100; RESP 17–20; TEMP 36–36.9; O2SAT 97–100; BMI 28.1
[2024-05-02 05:38] LABS: Hematocrit 37.7 % (42.0-52.0); Hemoglobin 12.4 g/dL (14.0-18.0); Mean Corpuscular HGB Conc 32.9 g/dl (32-36); Mean Corpuscular Hemoglobin 30.2 pg (26-34); Mean Platelet Volume 9.6 fl (7.4-10.4); Platelet Count Result 276 k/mm3 (150-375); White Blood Count 10.1 K/mm3 (4.5-10.0)
[2024-05-02 05:47] LABS: INR 1.4; Prothrombin Time 17.8 Seconds (11.1-14.7)
[2024-05-02 05:49] LABS: Partial Thromboplastin Time 32.4 Seconds (22.3-36.8)
[2024-05-02 05:52] LABS: Albumin Level 2.7 g/dL (3.5-5.1); Anion Gap 6 mmol/L (4-12); Blood Urea Nitrogen 75 mg/dL (9-20); Calcium 11.7 mg/dL (8.4-10.2); Carbon Dioxide 26 mmol/L (22-30); Chloride 96 mmol/L (98-107); Estimated CRCL calculation 16 ml/min; Estimated Glomerular Filt Rate 15; Glucose 113 mg/dL (65-110); Phosphorus 4.6 mg/dL (2.5-4.5); Potassium 5.2 mmol/L (3.4-5.0); Sodium 128 mmol/L (137-145)
--- NOTE | 2024-05-02 07:41 | PM.IMPN ---
Progress Note: A&P Assessment and Plan (1) Oropharyngeal candidiasis: Code(s): B37.0 - Candidal stomatitis Status: Acute Assessment and Plan: - mouth wash prn (2) Dehydration: Code(s): E86.0 - Dehydration Status: Acute Assessment and Plan: follow nephrology recommendation - holding IV fluids for now as BLE swelling - will need discuss PEG tube placement - dietitian consult ordered 05/02- gi consult in place follwo nephrology recommendations (3) Acute on chronic kidney failure: Qualifiers: Acute renal failure type: unspecified Chronic kidney disease stage: stage 5, not on chronic dialysis Qualified Code(s): N17.9 - Acute kidney failure, unspecified; N18.5 - Chronic kidney disease, stage 5 Code(s): N17.9 - Acute kidney failure, unspecified; N18.9 - Chronic kidney disease, unspecified Status: Acute Assessment and Plan: - - previously normal cr (till April)- slowly climbing up with this visit being the highest (4.1) - VERY LIKELY DUE TO DEHYDRATIONS/ DIURETICS, THIRD SPACING, MALIGNANCY - nephrology consulted - appreciate recommendations (4) Adult failure to thrive: Code(s): R62.7 - Adult failure to thrive Status: Acute Assessment and Plan: - dietitian consult placed - will discuss PEG tube tomorrow 05/02- gi consulted for Peg tube placement (5) Type 2 diabetes mellitus: Qualifiers: Diabetes mellitus complication status: without complication Diabetes mellitus termite exterminator insulin use: without [facility] use Qualified Code(s): E11.9 - Type 2 diabetes mellitus without complications Code(s): E11.9 - Type 2 diabetes mellitus without complications Status: Acute Assessment and Plan: - accucheck ac/hs - hypoglycemia protocol, SS - holding metfromin and januvia (6) Hypertension: Qualifiers: Hypertension type: primary hypertension Qualified Code(s): I10 - Essential (primary) hypertension Code(s): I10 - Essential (primary) hypertension Status: Chronic Assessment and Plan: reviewed and controlled (7) Ascites, malignant: Code(s): R18.0 - Malignant ascites Status: Acute Assessment and Plan: - will order ultrasound/paracentesis - last paracentesis was done 5 days ago 05/02- paracentesis today (8) Metastatic adenocarcinoma: Code(s): C79.9 - Secondary malignant neoplasm of unspecified site Status: Acute Assessment and Plan: - oncology consulted Time Spent With Patient Time with patient: 25 - 35 minutes Subjective Date/time seen: 05/02/24 07:41 Interval history: Narrative: 78 y.o male with PMH/o metastatic adenocarcinoma, acute renal failure, anemia, hyponatremnia (Na 128), T2dm, HTN, ascites, glaucoma Of note- pt was discharge from the hospital on 04/23. During that admission, he had a port placed by surgery, Dr. Arroyo on 04/22 for future chemotherapy. Patients hyponatremia is likely related to BEVERLY/ARF, fluid retention, and possibly malignancy. Per Dr. Abraham, pt will be followed outpatient and patient can restart lasix and spironolactone at time of discharge. Patients shortness of breath was likely related to his ascites as following paracentesis his symptoms would improve. During that admission patient received two paracenteses, one on 04/18 and the other on 04/22. Per Dr. Verma patient will undergo weekly paracentesis at the oncology office. Patient was noted to be anemic and started on iron supplementation as well. He presented to ED for difficulties eating -had been worsening over the last week, drinks very little - about 20 ounces of water if that. His oncologist is Dr. Verma. His abdomen is distended. His last paracentesis was 5 days ago. Reports some difficulty breathing due to abdominal distension. Reports urinary frequency ua was collected in ed. He is supposed to be starting chemotherapy next week. Denies fever, vomiting. We discussed
[2024-05-02 08:35] LABS: Glucose Point of Care 110 mg/dl (65-105)
[2024-05-02] MEDS: FERROUS SULFATE 325 MG TABLET DR PO ×2 (11:38→17:50)
[2024-05-02] MEDS: NYSTATIN 100,000 UNITS/ML SUSP 5 ML ORAL.SUSP PO ×3 (11:38→20:36)
[2024-05-02] MEDS: TIMOLOL MALEATE 0.5% OP SOLN 5 ML BOTTLE 1 DROP EACH EYE ×2 (11:39→20:36)
[2024-05-02] MEDS: DORZOLAMIDE/TIMOLOL OPHTH SOL 10 ML BOTTLE 1 DROP EACH EYE (11:42)
[2024-05-02 12:10] LABS: Glucose Point of Care 108 mg/dl (65-105)
--- NOTE | 2024-05-02 12:52 | PM.PNNEP ---
Progress Note: A&P Assessment and Plan (1) Acute kidney injury: Code(s): N17.9 - Acute kidney failure, unspecified Status: Acute Assessment and Plan: the patient has acute kidney injury on top of an already high creatinine. His baseline creatinine had been normal before April, was stable in the threes at the end of last visit. The creatinine was 4.1 on admission is come down to 3.9 I suspect that the patient has renal failure due to prerenal factors Due to 3rd spacing cousin of the cancer. renal venous hypertension could be playing a role as well. He also has a high calcium which could contribute as well. Other causes of elevated creatinine were evaluated last admission. Patient received fluids yesterday. Then his fluid rate was decreased to 50 overnight. I do want to give him too much fluid last he have more problems with ascites and swelling. However he needs enough fluid to keep from being pre renal. Since he is not eating will continue the IV fluids at 50 an hour for now. Keep an eye on the labs while we do. (2) Type 2 diabetes mellitus: Qualifiers: Diabetes mellitus long term care administrator insulin use: without halfway use Diabetes mellitus complication status: without complication Qualified Code(s): E11.9 - Type 2 diabetes mellitus without complications Code(s): E11.9 - Type 2 diabetes mellitus without complications Status: Acute Assessment and Plan: the patient is Accu-Cheks. (3) Hypertension: Qualifiers: Hypertension type: primary hypertension Qualified Code(s): I10 - Essential (primary) hypertension Code(s): I10 - Essential (primary) hypertension Status: Chronic Assessment and Plan: Blood pressure is under good control Systolic has been ranging from 100-132 (4) Metastatic disease: Qualifiers: Area of secondary neoplastic involvement: unspecified site Qualified Code(s): C79.9 - Secondary malignant neoplasm of unspecified site Code(s): C79.9 - Secondary malignant neoplasm of unspecified site Status: Chronic Assessment and Plan: The patient is going to start chemotherapy soon (5) Transaminitis: Code(s): R74.01 - Elevation of levels of liver transaminase levels Status: Acute Assessment and Plan: liver enzymes high likely due to liver Mets (6) Edema: Code(s): R60.9 - Edema, unspecified Status: Acute Assessment and Plan: most likely due to metastatic disease with liver involvement (7) Hypercalcemia: Code(s): E83.52 - Hypercalcemia Status: Acute Assessment and Plan: most likely this is due to metastatic disease in the bones. PTH is only 12 urine calcium is pending as is PTH related protein he received pamidronate yesterday. Calcium level is down to 11.7 (8) Hyponatremia: Code(s): E87.1 - Hypo-osmolality and hyponatremia Status: Acute Assessment and Plan: sodium level is mildly low. is ranging in the high 120s. TSH and cortisol were okay in the past. He is not on any medications that would do this other than the diuretics. Most likely due to his cancer it is not low enough to use demeclocycline because this is very expensive anyway. Will continue to follow. Subjective Date/time seen: 05/02/24 12:52 Interval history: Ken is feeling about the same. No chest pain or shortness of breath due for paracentesis today Review of Systems Cardiovascular: Cardiovascular: Reports no additional cardiovascular complaints Respiratory: Respiratory: Reports no additional respiratory complaints Gastrointestinal: Gastrointestinal: Reports no additional gastrointestinal complaints Genitourinary: Genitourinary: Reports no additional male genitourinary complaints Exam Narrative: WDWN in NAD skin no rash or subcu 9 head ncat lungs clear cor reg no rub abd BS+ nonte
--- NOTE | 2024-05-02 13:48 | PCDIET ---
Tube feeding recommendations following PEG placement Recommend to use Nepro tube feeding at this time due to pts elevated renal labs. *Goal rate of 55ml/hr of Nepro to provide 2178kcals, 98g protein, 879ml free water. (Will need an additional 150ml flush q 4 hrs if not on IV fluids.) Recommend RUCHI BID for wound healing (90kcals, 2.5g protein per pack) via tube *Start tube feed after Ok from GI, initiate rate at 20ml/hr, advance by 10ml/hr q 4 hrs until goal rate is reached
--- NOTE | 2024-05-02 15:13 | WPDGICN ---
Assessment and Plan Assessment and plan (1) Malnutrition: Code(s): E46 - Unspecified protein-calorie malnutrition Status: Acute Assessment and Plan: anorexia with weight loss due to metastatic disease unfortunately he also has malignant ascites that has been requiring paracentesis, this is a contraindication to get G-tube, this is not an option consider enteral feeding after placing DH tube prognosis is poor (2) Metastatic adenocarcinoma: Code(s): C79.9 - Secondary malignant neoplasm of unspecified site Status: Acute Assessment and Plan: unknown primary by oncology (3) Acute on chronic kidney failure: Qualifiers: Acute renal failure type: unspecified Chronic kidney disease stage: stage 5, not on chronic dialysis Qualified Code(s): N17.9 - Acute kidney failure, unspecified; N18.5 - Chronic kidney disease, stage 5 Code(s): N17.9 - Acute kidney failure, unspecified; N18.9 - Chronic kidney disease, unspecified Status: Acute Assessment and Plan: treated by primary team (4) Ascites, malignant: Code(s): R18.0 - Malignant ascites Status: Acute Assessment and Plan: had paracentesis just few days ago (5) Anorexia: Code(s): R63.0 - Anorexia Status: Acute GI Consult Note Consult date/time: 05/02/24 15:13 Reason for consult: malnutrition, metastatic disease HPI: Ken Hall is a 78 year old male with history of metastatic cancer, unsure of primary source with disease in liver, lymph node and peritoneal carcinomatosis with malignant ascites requiring paracentesis. He was admitted with failure to thrive, he has anorexia and hardly eating, found to have in acute renal failure, hyponatremai. Consult is to assess if he could get G-tube. Review of Systems Constitutional: Constitutional: Reports fatigue, Reports lethargy and Reports weakness Eyes: Eyes: Denies blurry vision ENT: Reports Normal hearing present Cardiovascular: Cardiovascular: Denies chest pain Respiratory: Respiratory: Reports dyspnea on exertion Gastrointestinal: Comments: anorexia Musculoskeletal: Musculoskeletal: Denies neck pain Integumentary/Breasts: Skin/Breast: Denies rash Neurologic: Denies headache(s) Psychiatric: Psychiatric: Denies homicidal ideation [facility] Past Medical History Medical History (Updated 05/02/24 @ 15:19 by Mukesh Poe MD) Anorexia COVID-30 October 2020 Diabetes Glaucoma Hypertension Malnutrition Metastatic carcinoma Surgical History Surgical History H/O cataract removal with insertion of prosthetic lens Family History Family History Father Heart disease Social History Social History Smoking status: Never smoker Alcohol intake: never Substance use: never Substance use type: does not use Do You Feel Safe in your Home?: Yes Lack of Transportation: No Lack of Food: Never True Current Housing: I Have Housing Concerned About Future Housing: No Difficulty Paying Gas/Electric Bills: No Difficulty Paying for Meds: No Currently Unemployed: No Education: Trade/Vocational Certificate Difficulty w/ Childcare or Family Care: No Spiritual care concerns: No Meds Home Medications and Allergies Home Medications Medication Instructions Recorded Confirmed Type latanoprost 0.005 % eye drops 1 drp LEFT EYE DAILY 06/29/22 05/01/24 History (Xalatan) timolol maleate 0.5 % eye drops 1 drp EACH EYE BID 06/29/22 05/01/24 History metformin 500 mg tablet 500 mg PO BID #180 tabs 09/17/23 05/01/24 Rx furosemide 40 mg tablet 40 mg PO DAILY 04/16/24 05/01/24 History sitagliptin phosphate 100 mg 100 mg PO DAILY 04/16/24 05/01/24 History tablet (Januvia) ferrous sulfate 325 mg (65 mg 325 mg PO BID #60 ta
[2024-05-02 16:56] LABS: Glucose Point of Care 124 mg/dl (65-105)
[2024-05-02] MEDS: SODIUM CHLORIDE 0.9% IV 1,000 ML 50 ML IV CONT (20:36)
[2024-05-02] MEDS: LATANOPROST 0.005% OP SOLN 2.5 ML BTL 1 DROP LEFT EYE (20:36)
[2024-05-02] MEDS: MELATONIN 5 MG TABLET PO (20:36)
[2024-05-02 21:53] LABS: Glucose Point of Care 111 mg/dl (65-105)
[2024-05-03] VITALS (10 sets, daily range): BP systolic 114–126; BP diastolic 52–58; PULSE 93–109; RESP 16–24; TEMP 36.5–36.6; O2SAT 97–100
[2024-05-03 06:44] LABS: Hematocrit 35.8 % (42.0-52.0); Hemoglobin 11.8 g/dL (14.0-18.0); Mean Corpuscular Hemoglobin 30.2 pg (26-34); Mean Corpuscular Volume 91.6 fl (80-100); Mean Platelet Volume 9.5 fl (7.4-10.4); Platelet Count Result 225 k/mm3 (150-375); Red Blood Count 3.91 M/mm3 (4.6-6.20); Red Cell Distribution Width 15.2 % (11.5-14.5); White Blood Count 10.5 K/mm3 (4.5-10.0)
[2024-05-03 06:54] LABS: Anion Gap 11 mmol/L (4-12); Blood Urea Nitrogen 78 mg/dL (9-20); Calcium 10.8 mg/dL (8.4-10.2); Carbon Dioxide 19 mmol/L (22-30); Chloride 98 mmol/L (98-107); Estimated CRCL calculation 16 ml/min; Estimated Glomerular Filt Rate 15; Glucose 95 mg/dL (65-110); Sodium 128 mmol/L (137-145)
--- NOTE | 2024-05-03 07:27 | PM.IMPN ---
Progress Note: A&P Assessment and Plan (1) Oropharyngeal candidiasis: Code(s): B37.0 - Candidal stomatitis Status: Acute Assessment and Plan: - mouth wash prn (2) Dehydration: Code(s): E86.0 - Dehydration Status: Acute Assessment and Plan: follow nephrology recommendation - holding IV fluids for now as BLE swelling - will need discuss PEG tube placement - dietitian consult ordered 05/02- gi consult in place - unable to do Peg tube - consider Dobhoff- pt doesnot want to at this point follow nephrology recommendations - 50 ml/h IV fluids for now (3) Acute on chronic kidney failure: Qualifiers: Acute renal failure type: unspecified Chronic kidney disease stage: stage 5, not on chronic dialysis Qualified Code(s): N17.9 - Acute kidney failure, unspecified; N18.5 - Chronic kidney disease, stage 5 Code(s): N17.9 - Acute kidney failure, unspecified; N18.9 - Chronic kidney disease, unspecified Status: Acute Assessment and Plan: - - previously normal cr (till April)- slowly climbing up with this visit being the highest (4.1) - VERY LIKELY DUE TO DEHYDRATIONS/ DIURETICS, THIRD SPACING, MALIGNANCY - nephrology consulted - appreciate recommendations (4) Adult failure to thrive: Code(s): R62.7 - Adult failure to thrive Status: Acute Assessment and Plan: - dietitian consult placed - will discuss PEG tube tomorrow 05/02- gi consulted for Peg tube placement 05/03 - interventions on hold- as pt considering hospice (5) Type 2 diabetes mellitus: Qualifiers: Diabetes mellitus complication status: without complication Diabetes mellitus intermodal dispatcher insulin use: without intermodal dispatcher use Qualified Code(s): E11.9 - Type 2 diabetes mellitus without complications Code(s): E11.9 - Type 2 diabetes mellitus without complications Status: Acute Assessment and Plan: - accucheck ac/hs - hypoglycemia protocol, SS - holding metfromin and januvia (6) Hypertension: Qualifiers: Hypertension type: primary hypertension Qualified Code(s): I10 - Essential (primary) hypertension Code(s): I10 - Essential (primary) hypertension Status: Chronic Assessment and Plan: reviewed and controlled (7) Ascites, malignant: Code(s): R18.0 - Malignant ascites Status: Acute Assessment and Plan: - will order ultrasound/paracentesis - last paracentesis was done 5 days ago 05/02- paracentesis today (8) Metastatic adenocarcinoma: Code(s): C79.9 - Secondary malignant neoplasm of unspecified site Status: Acute Assessment and Plan: - oncology consulted - notes reviewed: Tempus testing was unable to be ran d/t insufficient product. There is concern for biliary tract cancer versus gallbladder cancer d/t elevated liver enzymes. During last hospitalization, port was placed in preparation for chemotherapy. He reports being admitted for decreased appetite and weakness. Patient is very hard to understand d/t his hoarseness/dryness of his voice. There has been conversation about potentially PEG tube vs NG tube for nutrition at this time. When asked about a poor appetite vs early satiety, patient is unsure of why he cannot eat. PEG tube cannot be placed d/t malignant ascites. Paracentesis was completed yesterday with removal of 5L. Labs today are notable for WBC 10.5, Hgb 11.8, Hct 35 Cr 3.90 - discussed with Sony (son) and pt- tehy are leaning forward hospice/comfort care- will discuss today Time Spent With Patient Time with patient: 25 - 35 minutes Subjective Date/time seen: 05/03/24 07:27 Interval history: Narrative: 78 y.o male with PMH/o metastatic adenocarcinoma, acute renal failure, anemia, hyponatremia (Na 128), T2dm, HTN, ascites, glaucoma Of note- pt was discharge from the hospital on 04/23. During that admission, he had a port placed by surgery, Dr. Arroyo on 04/22 for future chemotherapy. Angela
--- NOTE | 2024-05-03 09:23 | PM.PNNEP ---
Progress Note: A&P Assessment and Plan (1) Acute kidney injury: Code(s): N17.9 - Acute kidney failure, unspecified Status: Acute Assessment and Plan: the patient has acute kidney injury on top of an already high creatinine. His baseline creatinine had been normal before April, was stable in the threes at the end of last visit. The creatinine was 4.1 on admission is come down to 3.9 and is still there now. I think this is a new baseline. I suspect that the patient has renal failure due to prerenal factors and high calcium. Other causes of elevated creatinine were evaluated last admission. Patient has been getting IVFs at 50 per hour. he isn't eating much so this is more or less maintenance fluids. (2) Type 2 diabetes mellitus: Qualifiers: Diabetes mellitus superintendent marine oil terminal insulin use: without superintendent marine oil terminal use Diabetes mellitus complication status: without complication Qualified Code(s): E11.9 - Type 2 diabetes mellitus without complications Code(s): E11.9 - Type 2 diabetes mellitus without complications Status: Acute Assessment and Plan: the patient is Accu-Cheks. (3) Hypertension: Qualifiers: Hypertension type: primary hypertension Qualified Code(s): I10 - Essential (primary) hypertension Code(s): I10 - Essential (primary) hypertension Status: Chronic Assessment and Plan: Blood pressure is under good control Systolic has been ranging from 100-132 (4) Metastatic disease: Qualifiers: Area of secondary neoplastic involvement: unspecified site Qualified Code(s): C79.9 - Secondary malignant neoplasm of unspecified site Code(s): C79.9 - Secondary malignant neoplasm of unspecified site Status: Chronic Assessment and Plan: The patient is going to start chemotherapy soon (5) Transaminitis: Code(s): R74.01 - Elevation of levels of liver transaminase levels Status: Acute Assessment and Plan: liver enzymes high likely due to liver Mets (6) Edema: Code(s): R60.9 - Edema, unspecified Status: Acute Assessment and Plan: most likely due to metastatic disease with liver involvement (7) Hypercalcemia: Code(s): E83.52 - Hypercalcemia Status: Acute Assessment and Plan: most likely this is due to metastatic disease in the bones. PTH is only 12 urine calcium is pending as well as PTH related protein he received pamidronate Thursday Calcium level is down to 10.8 (8) Hyponatremia: Code(s): E87.1 - Hypo-osmolality and hyponatremia Status: Acute Assessment and Plan: sodium level is mildly low. is ranging in the high 120s. TSH and cortisol were okay in the past. He is not on any medications that would do this other than the diuretics. Most likely due to his cancer it is not low enough to use demeclocycline because this is very expensive and the sodium is stable. not on a fluid restriction as he is not taking much in on his own anyway. Will continue to follow. Subjective Date/time seen: 05/03/24 09:23 Interval history: [t is lying in bed. feels the same. had the paracentesis yesterday. breathing better. no appetite. Exam Narrative: WDWN in NAD skin no rash or subcu 9 head ncat lungs clear cor reg no rub abd BS+ nontender and soft. less distended. ext 2+ bilateral edema. Objective Data Vital Signs Vital Signs: Vital Signs - 24 hr 05/02/24 12:00 05/02/24 11:40 05/02/24 14:24 Temperature 97.6 F Pulse Rate 98 90 Respiratory Rate 17 Blood Pressure 123/58 L Pulse Oximetry 100 Oxygen Delivery Room Air Fraction of Inspired Oxygen 05/02/24 16:00 05/02/24 21:25 05/02/24 20:00 Temperature 96.8 F L Pulse Rate 85 94 89 Respiratory Rate 20 20 Blood Pressure 114/51 L Pulse Oximetry 98 98 Oxygen Delivery Room Air Fraction of Inspired Oxygen 21
[2024-05-03 09:39] LABS: Glucose Point of Care 103 mg/dl (65-105)
[2024-05-03] MEDS: TIMOLOL MALEATE 0.5% OP SOLN 5 ML BOTTLE 1 DROP EACH EYE ×2 (09:39→20:12)
[2024-05-03] MEDS: DORZOLAMIDE/TIMOLOL OPHTH SOL 10 ML BOTTLE 1 DROP EACH EYE (09:39)
[2024-05-03] MEDS: FERROUS SULFATE 325 MG TABLET DR PO ×2 (09:39→18:12)
[2024-05-03] MEDS: NYSTATIN 100,000 UNITS/ML SUSP 5 ML ORAL.SUSP PO ×4 (09:47→20:12)
--- NOTE | 2024-05-03 11:04 | PDONCCN ---
HPI - Date of Consult Date/Time: 05/03/24 18:56 <Luci,Ace Kirk - 05/03/24 18:59> 05/03/24 11:04 <BrandonNikki - 05/03/24 11:16> Requesting Physician: Michelle Saldaña DO <Ace Verma - 05/03/24 18:59> Michelle Saldaña DO <BrandonNikki - 05/03/24 11:16> Primary Care Provider: Loreto Guzman APRN <LuciAceeffie Bradley - 05/03/24 18:59> Loreto Guzman APRN <BrandonNikki - 05/03/24 11:16> - Consult Narrative Reason for consult: Metastatic Adenocarincoma <BrandonNikki 05/03/24 11:16> Narrative: Ken Hall is a 78 year old male <LuciAce Kirk - 05/03/24 18:59> Ken Hall is a 78 year old male with a past medical history of DM, HTN, glaucoma, and a new diagnosis of metastatic adenocarcinoma of unknown primary site. Tempus testing was unable to be ran d/t insufficient product. There is concern for biliary tract cancer versus gallbladder cancer d/t elevated liver enzymes. During last hospitalization, port was placed in preparation for chemotherapy. He reports being admitted for decreased appetite and weakness. Patient is very hard to understand d/t his hoarseness/dryness of his voice. There has been conversation about potentially PEG tube vs NG tube for nutrition at this time. When asked about a poor appetite vs early satiety, patient is unsure of why he cannot eat. PEG tube cannot be placed d/t malignant ascites. Paracentesis was completed yesterday with removal of 5L. Labs today are notable for WBC 10.5, Hgb 11.8, Hct 35 Cr 3.90 <BrandonNikki 05/03/24 11:16> Review of Systems - Review of Systems All systems reviewed & are unremarkable except as noted in HPI and bel <BrandonNikki 05/03/24 11:16> - Constitutional Reports anorexia, Reports fatigue, Reports lack of energy, Reports malaise <BrandonNikki 05/03/24 11:16> - Neurologic Reports system reviewed and no additional complaints, except as documented, Reports hearing normal, Reports weakness, Denies headache(s) <Steve Taylorne - 05/03/24 11:16> [facility] Medical History: Medical History (Last Updated 05/02/24 @ 15:19 by Mukesh Poe MD) Anorexia COVID-30 October 2020 Diabetes Glaucoma Hypertension Malnutrition Metastatic carcinoma <Ace VermaLloyd - 05/03/24 18:59> Medical History (Last Updated 05/02/24 @ 15:19 by Mukesh Poe MD) Anorexia COVID-30 October 2020 Diabetes Glaucoma Hypertension Malnutrition Metastatic carcinoma <BharateugeneNikki 05/03/24 11:16> Surgical History: Surgical History (Last Reviewed 05/01/24 @ 09:59 by Doyle Gramajo MD) H/O cataract removal with insertion of prosthetic lens <LuciAceLloyd - 05/03/24 18:59> Surgical History (Last Reviewed 05/01/24 @ 09:59 by Doyle Gramajo MD) H/O cataract removal with insertion of prosthetic lens <BharateugeneDavidNikki - 05/03/24 11:16> Family History: Family History (Last Reviewed 05/01/24 @ 09:59 by Doyle Gramajo MD) Father Heart disease <LuciAceLloyd - 05/03/24 18:59> Family History (Last Reviewed 05/01/24 @ 09:59 by Doyle Gramajo MD) Father Heart disease <BharatNikki knight 05/03/24 11:16> - Social History Social History: Social History (Last Reviewed 05/01/24 @ 09:59 by Doyle Gramajo MD) Alcohol Use: Alcohol intake: never Substance Use: Substance use: never Substance use type: does not use Others: Spiritual care concerns: No Smoking Status: Smoking status: Never smoker Social Determinants of Health: Do You Feel Safe in your Home?: Yes Has the Lack of Transportation Kept You From Medical Appointments or From Getting Medications?: No Within the Past 12 Months, Were You Worried Whether Your Food Would Run Out Before You Got Money to Buy More?: Never True What is Your Housing Situation
--- NOTE | 2024-05-03 12:25 | PCDIET ---
Diet orders have advanced to a diabetic diet. Intake today 0% reported. Recommending Glucerna shakes for additional 220 kcal and 10 gm protein. Awaiting family decisions regarding plan of care for PEG vs hospice. Will continue to monitor.
[2024-05-03 12:43] LABS: Glucose Point of Care 110 mg/dl (65-105)
[2024-05-03] MEDS: ACETAMINOPHEN 325 MG TABLET 650 MG PO ×2 (13:22→19:24)
[2024-05-03 15:28] LABS: Urine Calcium, Random 22.2 mg/dL; Urine Creatinine, Random 102 mg/dL (20-320)
[2024-05-03 17:16] LABS: Glucose Point of Care 106 mg/dl (65-105)
[2024-05-03] MEDS: SODIUM CHLORIDE 0.9% IV 1,000 ML 50 ML IV CONT (19:24)
[2024-05-03] MEDS: LATANOPROST 0.005% OP SOLN 2.5 ML BTL 1 DROP LEFT EYE (20:12)
[2024-05-03 20:24] LABS: Glucose Point of Care 98 mg/dl (65-105)
[2024-05-04] VITALS (10 sets, daily range): BP systolic 95–139; BP diastolic 52–65; PULSE 89–100; RESP 12–20; TEMP 36.2–36.4; O2SAT 99–100
--- NOTE | 2024-05-04 06:48 | PM.IMPN ---
Progress Note: A&P Assessment and Plan (1) Adult failure to thrive: Code(s): R62.7 - Adult failure to thrive Status: Acute Assessment and Plan: Patient is clinically deteriorating and becoming increasingly weak due to inadequate nutrition secondary to his metastatic disease causing nausea and lack of appetite. - PEG tube is not an option d/t malignant ascites and need for frequent paracenteses - Patient notes nausea with food odors will attempt to give PO reglan prior to meals and give nonodorous foods. - If unsuccessful will require an NG/Dophoff vs PPN vs TPN vs hospice. Discussed with patient that this is not a terminologist treatment plan as he is unable to be discharged on these modes of nutrition. (2) Metastatic adenocarcinoma: Code(s): C79.9 - Secondary malignant neoplasm of unspecified site Status: Acute Assessment and Plan: Concern for biliary tract cancer versus gallbladder cancer d/t elevated liver enzymes - Abdomen/pelvis CT 04/16: Right upper quadrant mass at the head of the pancreas/hilum of the liver. Multiple hepatic masses suspicious for metastatic disease. Thoracic and upper abdominal lymphadenopathy. Peritoneal. Moderate ascites. - Abdomen MRI 04/19: Liver masses, abdominal lymphadenopathy, and moderate volume of malignant ascites, consistent with metastatic disease. Cholelithiasis. Gallbladder distention may secondary to fasting. - Port placed 04/[address] Arroyo for future chemotherapy - Oncology following and continuing work up (3) Ascites, malignant: Code(s): R18.0 - Malignant ascites Status: Acute Assessment and Plan: Patient endorses shortness of breath likely due to volume overload. - s/p nondiagnostic paracentesis on 05/02 yielding 5L (4) Acute renal failure: Qualifiers: Acute renal failure type: unspecified Qualified Code(s): N17.9 - Acute kidney failure, unspecified Code(s): N17.9 - Acute kidney failure, unspecified Status: Acute Assessment and Plan: Creatinine was previously normal (till April). Per nephrology likely related to 3rd spacing of fluid into abdomen and LEs from underlying malignancy resulting in prerenal azotemia. This could potentially be patients new baseline. - BUN/Cr 72/4.1 on admission - Renal US 05/01: Nonobstructing stone in the mid left kidney. Otherwise normal kidneys with no hydronephrosis. - Urine electrolytes pre renal - IV NS 50ml/hr - Nephrology following. (5) Type 2 diabetes mellitus: Qualifiers: Diabetes mellitus complication status: without complication Diabetes mellitus terminologist insulin use: without correction use Qualified Code(s): E11.9 - Type 2 diabetes mellitus without complications Code(s): E11.9 - Type 2 diabetes mellitus without complications Status: Acute Assessment and Plan: - hypoglycemia protocol - POC blood glucose ACHS - home medication - metformin and sitagliptin - correct regimen ordered - low dose TIDWM - A1C 12/20: 6.5 (6) Hypertension: Qualifiers: Hypertension type: primary hypertension Qualified Code(s): I10 - Essential (primary) hypertension Code(s): I10 - Essential (primary) hypertension Status: Chronic Assessment and Plan: Chronic, well controlled. - Continue to monitor Time Spent With Patient Time with patient: 25 - 35 minutes Subjective Date/time seen: 05/04/24 06:48 Interval history: Patient is pleasant lying comfortably in bed. He Has no complaints at this time, denying chest pain, shortness a breath, abdominal pain, changes in bowel/ bladder. He states that he has not eaten in over a week due to increased nausea with odors. Patient is not a candidate for PEG tube placement as he continues to require paracenteses for the ongoing ascites secondary to his malignancy. Per chart review patient was leaning toward hospice yesterday, however today he does not wish to move forward with hospice. Dis
[2024-05-04 07:17] LABS: Hemoglobin 12.1 g/dL (14.0-18.0); Mean Corpuscular HGB Conc 32.7 g/dl (32-36); Mean Corpuscular Hemoglobin 30.3 pg (26-34); Mean Corpuscular Volume 92.5 fl (80-100); Mean Platelet Volume 9.2 fl (7.4-10.4); Platelet Count Result 251 k/mm3 (150-375); Red Cell Distribution Width 15.4 % (11.5-14.5); White Blood Count 10.7 K/mm3 (4.5-10.0)
[2024-05-04 07:37] LABS: Anion Gap 10 mmol/L (4-12); Blood Urea Nitrogen 83 mg/dL (9-20); Calcium 10.4 mg/dL (8.4-10.2); Carbon Dioxide 22 mmol/L (22-30); Chloride 96 mmol/L (98-107); Estimated CRCL calculation 15 ml/min; Estimated Glomerular Filt Rate 14; Glucose 94 mg/dL (65-110); Potassium 5.3 mmol/L (3.4-5.0); Sodium 128 mmol/L (137-145)
[2024-05-04 07:38] LABS: Albumin Level 2.6 g/dL (3.5-5.1); Anion Gap 10 mmol/L (4-12); Blood Urea Nitrogen 83 mg/dL (9-20); Calcium 10.6 mg/dL (8.4-10.2); Carbon Dioxide 22 mmol/L (22-30); Chloride 96 mmol/L (98-107); Estimated CRCL calculation 15 ml/min; Estimated Glomerular Filt Rate 14; Glucose 94 mg/dL (65-110); Phosphorus 4.9 mg/dL (2.5-4.5); Potassium 5.3 mmol/L (3.4-5.0); Sodium 128 mmol/L (137-145)
[2024-05-04 08:12] LABS: Glucose Point of Care 91 mg/dl (65-105)
[2024-05-04] MEDS: FERROUS SULFATE 325 MG TABLET DR PO ×2 (09:08→16:54)
[2024-05-04] MEDS: NYSTATIN 100,000 UNITS/ML SUSP 5 ML ORAL.SUSP PO ×4 (09:08→20:14)
[2024-05-04] MEDS: DORZOLAMIDE/TIMOLOL OPHTH SOL 10 ML BOTTLE 1 DROP EACH EYE (09:09)
[2024-05-04] MEDS: TIMOLOL MALEATE 0.5% OP SOLN 5 ML BOTTLE 1 DROP EACH EYE ×2 (09:09→20:14)
--- NOTE | 2024-05-04 11:35 | PM.PNNEP ---
Progress Note: A&P Assessment and Plan (1) Acute kidney injury: Code(s): N17.9 - Acute kidney failure, unspecified Status: Acute Assessment and Plan: the patient has acute kidney injury on top of an already high creatinine. His baseline creatinine had been normal before April, was stable in the threes at the end of last visit. The creatinine was 4.1 on admission and has been up and down but basically is in the high threes in the low 4s. I suspect that the patient has renal failure due to prerenal factors and high calcium. Other causes of elevated creatinine were evaluated last admission. Patient has been getting IVFs at 50 per hour. he isn't eating much so this is more or less maintenance fluids. Hospitalist working through nutritional issues. (2) Type 2 diabetes mellitus: Qualifiers: Diabetes mellitus custodial insulin use: without folder and notcher use Diabetes mellitus complication status: without complication Qualified Code(s): E11.9 - Type 2 diabetes mellitus without complications Code(s): E11.9 - Type 2 diabetes mellitus without complications Status: Acute Assessment and Plan: the patient is Accu-Cheks. (3) Hypertension: Qualifiers: Hypertension type: primary hypertension Qualified Code(s): I10 - Essential (primary) hypertension Code(s): I10 - Essential (primary) hypertension Status: Chronic Assessment and Plan: Blood pressure is under good control Systolic has been ranging from 100-132 (4) Metastatic disease: Qualifiers: Area of secondary neoplastic involvement: unspecified site Qualified Code(s): C79.9 - Secondary malignant neoplasm of unspecified site Code(s): C79.9 - Secondary malignant neoplasm of unspecified site Status: Chronic Assessment and Plan: The patient is going to start chemotherapy soon (5) Transaminitis: Code(s): R74.01 - Elevation of levels of liver transaminase levels Status: Acute Assessment and Plan: liver enzymes high likely due to liver Mets (6) Edema: Code(s): R60.9 - Edema, unspecified Status: Acute Assessment and Plan: most likely due to metastatic disease with liver involvement (7) Hypercalcemia: Code(s): E83.52 - Hypercalcemia Status: Acute Assessment and Plan: most likely this is due to metastatic disease in the bones. He also is at bed rest which causes resorption of calcium from the bones. PTH is only 12 urine calcium is pending as well as PTH related protein he received pamidronate Thursday Calcium level is down to 10.6 It has been coming down so possibly will continue to drop because it takes a while for pamidronate to work. I wonder if he can get up into a chair possibly he reduce the calcium resorption. Consider denosumab as an outpatient if his calcium continues to be a problem going forward. (8) Hyponatremia: Code(s): E87.1 - Hypo-osmolality and hyponatremia Status: Acute Assessment and Plan: sodium level is mildly low. is ranging in the high 120s. TSH and cortisol were okay in the past. He is not on any medications that would do this other than the diuretics. Most likely due to his cancer it is not low enough to use demeclocycline because this is very expensive and the sodium is stable. not on a fluid restriction as he is not taking much in on his own anyway. The patient's sodium is stable. Will continue to follow this along Discussed at length with VENKAT Hicks. Subjective Date/time seen: 05/04/24 11:35 Interval history: Patient feels about the same. Still weak. No appetite. Still swollen. Exam Narrative: WDWN in NAD skin no rash or subcu 9 head ncat lungs clear bilaterally cor reg no rub or gallop abd BS+ nontender and soft. less distended. ext 2+ bilateral edema, unchanged. Objective Data Vital Sign
[2024-05-04 11:59] LABS: Glucose Point of Care 94 mg/dl (65-105)
[2024-05-04 13:44] LABS: Calcium/Creatinine Ratio, Ur 218 mg/g creat
[2024-05-04] MEDS: SODIUM CHLORIDE 0.9% IV 1,000 ML 50 ML IV CONT (13:56)
[2024-05-04] MEDS: METOCLOPRAMIDE HCL 10 MG/10 ML SOLN UDC PO (16:54)
[2024-05-04 16:56] LABS: Glucose Point of Care 93 mg/dl (65-105)
[2024-05-04] MEDS: LATANOPROST 0.005% OP SOLN 2.5 ML BTL 1 DROP LEFT EYE (20:14)
[2024-05-04 20:31] LABS: Glucose Point of Care 97 mg/dl (65-105)
[2024-05-05] VITALS (9 sets, daily range): BP systolic 95–137; BP diastolic 40–56; PULSE 93–104; RESP 12–18; TEMP 36.2–37.1; O2SAT 97–99
--- NOTE | 2024-05-05 07:47 | PM.IMPN ---
Progress Note: A&P Assessment and Plan (1) Adult failure to thrive: Code(s): R62.7 - Adult failure to thrive Status: Acute Assessment and Plan: Patient is clinically deteriorating and becoming increasingly weak due to inadequate nutrition secondary to his metastatic disease causing nausea and lack of appetite. - PEG tube is not an option d/t malignant ascites and need for frequent paracenteses - Patient notes nausea with food odors will attempt to give PO reglan prior to meals and give nonodorous foods. - Discussed patient with nutrition. Will continue reglan with meals and start on PPN. - PPN vs hospice. Discussed with patient that this is not a senior living treatment plan as he is unable to be discharged on these modes of nutrition. (2) Metastatic adenocarcinoma: Code(s): C79.9 - Secondary malignant neoplasm of unspecified site Status: Acute Assessment and Plan: Concern for biliary tract cancer versus gallbladder cancer d/t elevated liver enzymes - Abdomen/pelvis CT 04/16: Right upper quadrant mass at the head of the pancreas/hilum of the liver. Multiple hepatic masses suspicious for metastatic disease. Thoracic and upper abdominal lymphadenopathy. Peritoneal. Moderate ascites. - Abdomen MRI 04/19: Liver masses, abdominal lymphadenopathy, and moderate volume of malignant ascites, consistent with metastatic disease. Cholelithiasis. Gallbladder distention may secondary to fasting. - Port placed 04/[address] Arroyo for future chemotherapy - Oncology following and continuing work up (3) Ascites, malignant: Code(s): R18.0 - Malignant ascites Status: Acute Assessment and Plan: Patient endorses shortness of breath likely due to volume overload. - s/p nondiagnostic paracentesis on 05/02 yielding 5L (4) Acute renal failure: Qualifiers: Acute renal failure type: unspecified Qualified Code(s): N17.9 - Acute kidney failure, unspecified Code(s): N17.9 - Acute kidney failure, unspecified Status: Acute Assessment and Plan: Creatinine was previously normal (till April). Per nephrology likely related to 3rd spacing of fluid into abdomen and LEs from underlying malignancy resulting in prerenal azotemia. This could potentially be patients new baseline. - BUN/Cr 72/4.1 on admission - Renal US 05/01: Nonobstructing stone in the mid left kidney. Otherwise normal kidneys with no hydronephrosis. - Urine electrolytes pre renal - IV NS 50ml/hr - Nephrology following. (5) Type 2 diabetes mellitus: Qualifiers: Diabetes mellitus complication status: without complication Diabetes mellitus manager long term care insulin use: without manager long term care use Qualified Code(s): E11.9 - Type 2 diabetes mellitus without complications Code(s): E11.9 - Type 2 diabetes mellitus without complications Status: Acute Assessment and Plan: - hypoglycemia protocol - POC blood glucose ACHS - home medication - metformin and sitagliptin - correct regimen ordered - low dose TIDWM - A1C 12/20: 6.5 (6) Hypertension: Qualifiers: Hypertension type: primary hypertension Qualified Code(s): I10 - Essential (primary) hypertension Code(s): I10 - Essential (primary) hypertension Status: Chronic Assessment and Plan: Chronic, well controlled. - Continue to monitor Time Spent With Patient Time with patient: 25 - 35 minutes Subjective Date/time seen: 05/05/24 07:47 Interval history: 78 y/o M with PMH of metastatic cancer of unknown origin, diabetes, glaucoma, and hypertension presents here with decreased appetite. Patient is pleasant lying comfortably in bed with son at bedside. He states he is feeling okay today. He underwent a Reglan trial prior to meals and was able to eat to 3/4 of his Ensure and a quarter of his eggs. Will continue to give Reglan prior to meals. Discussed patient with Nutrition and will start him on PPN. Patient denies chest pain,
[2024-05-05 08:12] LABS: Glucose Point of Care 94 mg/dl (65-105)
[2024-05-05] MEDS: SODIUM CHLORIDE 0.9% IV 1,000 ML 50 ML IV CONT (08:19)
[2024-05-05] MEDS: FERROUS SULFATE 325 MG TABLET DR PO (08:19)
[2024-05-05] MEDS: METOCLOPRAMIDE HCL 10 MG/10 ML SOLN UDC PO ×3 (08:19→20:30)
[2024-05-05] MEDS: SODIUM CHLORIDE 0.9% IV 1,000 ML 999 ML IV CONT (08:19)
[2024-05-05] MEDS: NYSTATIN 100,000 UNITS/ML SUSP 5 ML ORAL.SUSP PO ×2 (08:20→20:30)
[2024-05-05] MEDS: DORZOLAMIDE/TIMOLOL OPHTH SOL 10 ML BOTTLE 1 DROP EACH EYE (08:27)
[2024-05-05] MEDS: TIMOLOL MALEATE 0.5% OP SOLN 5 ML BOTTLE 1 DROP EACH EYE ×2 (08:27→20:30)
[2024-05-05 08:28] LABS: Basophils Percent Auto 0.2 % (0.2-1.2); Eosinophils Percent Auto 0.4 % (0-4.4); Hematocrit 38.4 % (42.0-52.0); Hemoglobin 12.4 g/dL (14.0-18.0); Immature Granulocyte Absolute 0.21 K/mm3 (0.00-0.031); Lymphocytes Absolute Auto 0.58 K/mm3 (0.9-3.2); Lymphocytes Percent Auto 5.4 % (18.3-44.2); Mean Corpuscular HGB Conc 32.3 g/dl (32-36); Mean Corpuscular Hemoglobin 29.7 pg (26-34); Mean Corpuscular Volume 91.9 fl (80-100); Mean Platelet Volume 9.6 fl (7.4-10.4); Monocytes Absolute Auto 0.7 K/mm3 (0.1-0.6); Monocytes Percent Auto 6.2 % (2.6-8.5); Neutrophils Absolute Auto 9.2 K/mm3 (1.3-6.7); Neutrophils Percent Auto 85.8 % (45.5-73.1); Platelet Count Result 259 k/mm3 (150-375); Red Blood Count 4.18 M/mm3 (4.6-6.20); Red Cell Distribution Width 15.7 % (11.5-14.5); White Blood Count 10.7 K/mm3 (4.5-10.0)
[2024-05-05 08:38] LABS: Alanine Aminotransferase 73 U/L (6-50); Albumin Level 2.7 g/dL (3.5-5.1); Alkaline Phosphatase 1143 U/L (38-126); Anion Gap 13 mmol/L (4-12); Aspartate Amino Transferase 146 U/L (17-59); Bilirubin,Total 2.8 mg/dL (0.2-1.3); Blood Urea Nitrogen 85 mg/dL (9-20); Calcium 10.1 mg/dL (8.4-10.2); Carbon Dioxide 18 mmol/L (22-30); Chloride 97 mmol/L (98-107); Estimated CRCL calculation 15 ml/min; Estimated Glomerular Filt Rate 14; Glucose 101 mg/dL (65-110); Sodium 128 mmol/L (137-145)
[2024-05-05] MEDS: ACETAMINOPHEN 325 MG TABLET 650 MG PO ×3 (08:41→23:25)
--- NOTE | 2024-05-05 11:09 | PM.PNNEP ---
Progress Note: A&P Assessment and Plan (1) Acute kidney injury: Code(s): N17.9 - Acute kidney failure, unspecified Status: Acute Assessment and Plan: the patient has acute kidney injury on top of an already high creatinine. The creatinine was 4.1 on admission and has been up and down but basically is in the high threes in the low 4s. I suspect that the patient has renal failure due to prerenal factors and high calcium. Continues to get IV fluids at50cc an hour more for maintenance than anything else. He is not eating at all. Caloric intake is still a problem. Hospitalist working through this. (2) Type 2 diabetes mellitus: Qualifiers: Diabetes mellitus keno terminal operator insulin use: without correction use Diabetes mellitus complication status: without complication Qualified Code(s): E11.9 - Type 2 diabetes mellitus without complications Code(s): E11.9 - Type 2 diabetes mellitus without complications Status: Acute Assessment and Plan: the patient is Accu-Cheks. (3) Hypertension: Qualifiers: Hypertension type: primary hypertension Qualified Code(s): I10 - Essential (primary) hypertension Code(s): I10 - Essential (primary) hypertension Status: Chronic Assessment and Plan: Blood pressure is under good control Systolic has been ranging from 95-139 If it drops any more will increase IV fluid (4) Metastatic disease: Qualifiers: Area of secondary neoplastic involvement: unspecified site Qualified Code(s): C79.9 - Secondary malignant neoplasm of unspecified site Code(s): C79.9 - Secondary malignant neoplasm of unspecified site Status: Chronic Assessment and Plan: The patient is going to start chemotherapy soon (5) Transaminitis: Code(s): R74.01 - Elevation of levels of liver transaminase levels Status: Acute Assessment and Plan: liver enzymes high likely due to liver Mets (6) Edema: Code(s): R60.9 - Edema, unspecified Status: Acute Assessment and Plan: most likely due to metastatic disease with liver involvement (7) Hypercalcemia: Code(s): E83.52 - Hypercalcemia Status: Acute Assessment and Plan: most likely this is due to metastatic disease in the bones. He also is at bed rest which causes resorption of calcium from the bones. PTH is only 12 urine calcium is pending as well as PTH related protein he received pamidronate Thursday Calcium level is down to 10.1 It has been coming down so possibly will continue to drop because it takes a while for pamidronate to work. I wonder if he can get up into a chair possibly he reduce the calcium resorption. Consider denosumab as an outpatient if his calcium continues to be a problem going forward. (8) Hyponatremia: Code(s): E87.1 - Hypo-osmolality and hyponatremia Status: Acute Assessment and Plan: sodium level is mildly low. is ranging in the high 120s. TSH and cortisol were okay in the past. He is not on any medications that would do this other than the diuretics. Most likely due to his cancer it is not low enough to use demeclocycline because this is very expensive and the sodium is stable. not on a fluid restriction as he is not taking much in on his own anyway. The patient's sodium is stable. Will continue to follow this along Discussed at length with VENKAT Hicks. Subjective Date/time seen: 05/05/24 11:09 Interval history: Patient is lying flat in bed. He is very weak Exam Narrative: WDWN male in NAD looking chronically ill in very weak skin no rash or subcu 9 head ncat lungs clear to auscultation cor reg no rub or gallop abd BS+ nontender and soft. less distended. ext 2+ bilateral edema, unchanged. Objective Data Vital Signs Vital Signs: Vital Signs - 24 hr 05/04/24 12:00 05/04/24 14:58 05/04/24 16:00 Te
[2024-05-05 11:53] LABS: Glucose Point of Care 125 mg/dl (65-105)
--- NOTE | 2024-05-05 12:12 | PCNFU ---
Nutrition Follow-Up Complete: Inadequate energy intake related to NPO status as evidenced by current diet order with need for alternative nutrition support to meet nutrition needs. Goal: Meet estimated needs Patient has limited progress towards goal. We will continue current goal. Pt current nutrition is DBCC with Glucerna shakes BID and PPN. Last recorded weight is 94.1 kg, no new weight to report, recommend new weight. Bowel Motility: +BM reported 05/03 Labs Reviewed:Cr 4.10,BUN 85, GFR 14, Na 128 Meds Noted:Reglan, Clinimix 4.25/5 with 20% Lipid Emulsion. Skin: Stage III sacrum and stage III coccyx. Additional Notes: Spoke with hospitalist today regarding oral intake. Patient did consume 3/4 ensure and quarter of eggs for breakfast today Poor po intake reported since admit. Unable to place PEG tube due to malignant ascites and need for frequent paracenteses per MD notes. Discussed nutritional options with hospitalist today. Plans for MD orders for PPN at this time for additional 1153 kcal/82 gm protein. PO intake is encouraged. Monitor for diet order changes, wt, labs, skin, meds every Thursday and Thursday.
[2024-05-05] MEDS: FAT EMULSIONS IV 20% 250 ML 20.83 ML IVPB (13:47)
[2024-05-05] MEDS: AMINO ACIDS 4.25%/D5W/LYTES/CA 2,000 ML 80 ML IV CONT (13:48)
[2024-05-05 16:53] LABS: Glucose Point of Care 122 mg/dl (65-105)
[2024-05-05] MEDS: LATANOPROST 0.005% OP SOLN 2.5 ML BTL 1 DROP LEFT EYE (20:30)
[2024-05-05 20:50] LABS: Glucose Point of Care 179 mg/dl (65-105)
[2024-05-06] VITALS (9 sets, daily range): BP systolic 106–137; BP diastolic 50–63; PULSE 85–95; RESP 16–18; TEMP 35.5–36.6; O2SAT 98–100
[2024-05-06 05:36] LABS: Basophils Percent Auto 0.2 % (0.2-1.2); Eosinophils Absolute Auto 0.1 K/mm3 (0-0.3); Eosinophils Percent Auto 0.8 % (0-4.4); Hematocrit 37.4 % (42.0-52.0); Immature Granulocyte Absolute 0.19 K/mm3 (0.00-0.031); Immature Granulocyte Percent A 1.8 % (0-0.5); Lymphocytes Percent Auto 5.7 % (18.3-44.2); Mean Corpuscular HGB Conc 32.1 g/dl (32-36); Mean Corpuscular Hemoglobin 29.6 pg (26-34); Mean Corpuscular Volume 92.3 fl (80-100); Mean Platelet Volume 9.5 fl (7.4-10.4); Monocytes Absolute Auto 0.7 K/mm3 (0.1-0.6); Monocytes Percent Auto 6.8 % (2.6-8.5); Neutrophils Absolute Auto 8.8 K/mm3 (1.3-6.7); Neutrophils Percent Auto 84.7 % (45.5-73.1); Platelet Count Result 224 k/mm3 (150-375); Red Blood Count 4.05 M/mm3 (4.6-6.20); Red Cell Distribution Width 15.5 % (11.5-14.5); White Blood Count 10.4 K/mm3 (4.5-10.0)
[2024-05-06 05:45] LABS: Partial Thromboplastin Time 33.2 Seconds (22.3-36.8)
[2024-05-06 05:47] LABS: Alanine Aminotransferase 74 U/L (6-50); Albumin Level 2.6 g/dL (3.5-5.1); Alkaline Phosphatase 1184 U/L (38-126); Anion Gap 10 mmol/L (4-12); Aspartate Amino Transferase 143 U/L (17-59); Bilirubin,Total 2.8 mg/dL (0.2-1.3); Blood Urea Nitrogen 89 mg/dL (9-20); Carbon Dioxide 17 mmol/L (22-30); Chloride 97 mmol/L (98-107); Estimated CRCL calculation 17 ml/min; Estimated Glomerular Filt Rate 16; Glucose 185 mg/dL (65-110); Magnesium 2.3 mg/dL (1.6-2.3); Sodium 124 mmol/L (137-145); Triglycerides 215 mg/dL (<150)
[2024-05-06] MEDS: METOCLOPRAMIDE HCL 10 MG/10 ML SOLN UDC PO ×3 (05:49→20:23)
[2024-05-06] MEDS: ACETAMINOPHEN 325 MG TABLET 650 MG PO (05:49)
[2024-05-06 06:32] LABS: Transferrin 108 mg/dL (206-381)
--- NOTE | 2024-05-06 06:44 | PM.IMPN ---
Progress Note: A&P Assessment and Plan (1) Adult failure to thrive: Code(s): R62.7 - Adult failure to thrive Status: Acute Assessment and Plan: Patient is clinically deteriorating and becoming increasingly weak due to inadequate nutrition secondary to his metastatic disease causing nausea and lack of appetite. - PEG tube is not an option d/t malignant ascites and need for frequent paracenteses - Dophoff and NG is not an option d/t home health not willing to manage per care coordination - Patient notes nausea with food odors will attempt to give PO reglan prior to meals and give nonodorous foods. - Discussed patient with nutrition. Will continue reglan with meals and start on PPN. - TPN vs hospice. Discussed with patient that this is not a bed bug exterminator treatment plan. - Per care coordination patient would require an effusion company, home health, a following physician and family member to handle the effusions to DC on TPN. Spoke with Dr. Verma and he is willing to follow patients TPN outpatient. Care coordination aware and is working on the other requirements for patient to be discharged on TPN. (2) Metastatic adenocarcinoma: Code(s): C79.9 - Secondary malignant neoplasm of unspecified site Status: Acute Assessment and Plan: Concern for biliary tract cancer versus gallbladder cancer d/t elevated liver enzymes - Abdomen/pelvis CT 04/16: Right upper quadrant mass at the head of the pancreas/hilum of the liver. Multiple hepatic masses suspicious for metastatic disease. Thoracic and upper abdominal lymphadenopathy. Peritoneal. Moderate ascites. - Abdomen MRI 04/19: Liver masses, abdominal lymphadenopathy, and moderate volume of malignant ascites, consistent with metastatic disease. Cholelithiasis. Gallbladder distention may secondary to fasting. - Port placed 04/[address] Arroyo for future chemotherapy - Oncology following and continuing work up (3) Ascites, malignant: Code(s): R18.0 - Malignant ascites Status: Acute Assessment and Plan: Patient endorses shortness of breath likely due to volume overload. - s/p nondiagnostic paracentesis on 05/02 yielding 5L - paracentesis ordered 05/06 (4) Acute renal failure: Qualifiers: Acute renal failure type: unspecified Qualified Code(s): N17.9 - Acute kidney failure, unspecified Code(s): N17.9 - Acute kidney failure, unspecified Status: Acute Assessment and Plan: Creatinine was previously normal (till April). Per nephrology likely related to 3rd spacing of fluid into abdomen and LEs from underlying malignancy resulting in prerenal azotemia. This could potentially be patients new baseline. - BUN/Cr 72/4.1 on admission - Renal US 05/01: Nonobstructing stone in the mid left kidney. Otherwise normal kidneys with no hydronephrosis. - Urine electrolytes pre renal - IV NS 50ml/hr - Nephrology following. (5) Type 2 diabetes mellitus: Qualifiers: Diabetes mellitus complication status: without complication Diabetes mellitus bed bug exterminator insulin use: without bed bug exterminator use Qualified Code(s): E11.9 - Type 2 diabetes mellitus without complications Code(s): E11.9 - Type 2 diabetes mellitus without complications Status: Acute Assessment and Plan: - hypoglycemia protocol - POC blood glucose ACHS - home medication - metformin and sitagliptin - correct regimen ordered - low dose TIDWM - A1C 12/20: 6.5 (6) Hypertension: Qualifiers: Hypertension type: primary hypertension Qualified Code(s): I10 - Essential (primary) hypertension Code(s): I10 - Essential (primary) hypertension Status: Chronic Assessment and Plan: Chronic, well controlled. - Continue to monitor Time Spent With Patient Time with patient: Greater than 35 minutes Subjective Date/time seen: 05/06/24 06:44 Interval history: 78 y/o M with PMH of metastatic cancer of unknown origin, diabetes, glaucoma, a
[2024-05-06 07:42] LABS: Glucose Point of Care 214 mg/dl (65-105)
[2024-05-06] MEDS: NYSTATIN 100,000 UNITS/ML SUSP 5 ML ORAL.SUSP PO ×2 (08:36→13:38)
[2024-05-06] MEDS: TIMOLOL MALEATE 0.5% OP SOLN 5 ML BOTTLE 1 DROP EACH EYE ×2 (08:36→20:25)
[2024-05-06] MEDS: FERROUS SULFATE 325 MG TABLET DR PO ×2 (08:36→17:07)
[2024-05-06] MEDS: DORZOLAMIDE/TIMOLOL OPHTH SOL 10 ML BOTTLE 1 DROP EACH EYE (08:36)
[2024-05-06] MEDS: INSULIN ASPART (*BKC) 100 UNITS/ML SUB-Q (08:37)
--- NOTE | 2024-05-06 10:10 | PM.PNNEP ---
Progress Note: A&P Assessment and Plan (1) Acute kidney injury: Code(s): N17.9 - Acute kidney failure, unspecified Status: Acute Assessment and Plan: the patient has acute kidney injury on top of an already high creatinine. I suspect that the patient has renal failure due to prerenal factors and high calcium. He is now getting nutrition. He is not eating much still. (2) Type 2 diabetes mellitus: Qualifiers: Diabetes mellitus education administrator insulin use: without chcf use Diabetes mellitus complication status: without complication Qualified Code(s): E11.9 - Type 2 diabetes mellitus without complications Code(s): E11.9 - Type 2 diabetes mellitus without complications Status: Acute Assessment and Plan: the patient is Accu-Cheks. (3) Hypertension: Qualifiers: Hypertension type: primary hypertension Qualified Code(s): I10 - Essential (primary) hypertension Code(s): I10 - Essential (primary) hypertension Status: Chronic Assessment and Plan: Blood pressure is under good control Systolic has been ranging from 90s to 130s (4) Metastatic disease: Qualifiers: Area of secondary neoplastic involvement: unspecified site Qualified Code(s): C79.9 - Secondary malignant neoplasm of unspecified site Code(s): C79.9 - Secondary malignant neoplasm of unspecified site Status: Chronic Assessment and Plan: The patient is going to start chemotherapy soon (5) Transaminitis: Code(s): R74.01 - Elevation of levels of liver transaminase levels Status: Acute Assessment and Plan: liver enzymes high likely due to liver Mets (6) Edema: Code(s): R60.9 - Edema, unspecified Status: Acute Assessment and Plan: most likely due to metastatic disease with liver involvement (7) Hypercalcemia: Code(s): E83.52 - Hypercalcemia Status: Acute Assessment and Plan: most likely this is due to metastatic disease in the bones. He also is at bed rest which causes resorption of calcium from the bones. PTH is only 12 urine calcium is high c/w mets or mobilization. PTH related protein pending he received pamidronate Thursday Calcium level is down to 10.0 It has been coming down so possibly will continue to drop because it takes a while for pamidronate to work. I wonder if he can get up into a chair possibly he reduce the calcium resorption. Consider denosumab as an outpatient if his calcium continues to be a problem going forward. So far the calcium is coming down gradually. (8) Hyponatremia: Code(s): E87.1 - Hypo-osmolality and hyponatremia Status: Acute Assessment and Plan: sodium level is mildly low. is ranging in the high 120s. TSH and cortisol were okay in the past. He is not on any medications that would do this other than the diuretics. Most likely due to his cancer it is not low enough to use demeclocycline because this is very expensive and the sodium is stable. not on a fluid restriction as he is not taking much in on his own anyway. The patient's sodium is down due to the drip. will give some salt tabs. Subjective Date/time seen: 05/06/24 10:10 Interval history: Son is in the room. Ken is lying in bed. Still very weak. He ate a little bit of food but not much. He started on peripheral nutrition overnight Exam Narrative: WDWN male in NAD looking chronically ill and very weak skin no rash or subcu nodules head ncat lungs clear to auscultation cor reg no rub abd BS+ nontender and soft. less distended. ext 2+ bilateral edema, unchanged. Objective Data Vital Signs Vital Signs: Vital Signs - 24 hr 05/05/24 12:00 05/05/24 14:59 05/05/24 16:00 Temperature 97.2 F L Pulse Rate 104 H 101 H 102 H Respiratory Rate 16 Blood Pressure 125/56 L Pulse Oximetry 98 Oxygen De
[2024-05-06] MEDS: SODIUM CHLORIDE 1 GM TABLET PO ×2 (11:38→17:07)
[2024-05-06 11:56] LABS: Glucose Point of Care 174 mg/dl (65-105)
--- NOTE | 2024-05-06 13:02 | PCNFU ---
Addendum entered by Kayleen Howard RD, LDN 05/06/24 13:19: skin: Stage III-sacrum, Stage III coccyx. Original Note: Nutrition Follow-Up Complete: Inadequate energy intake related to NPO status as evidenced by current diet order with need for alternative nutrition support to meet nutrition needs. Goal: Meet estimated needs limited progress towards goal. We will continue current goal. Pt current nutrition is DBCC/PPN. Last recorded weight is 94.1 kg, no new weight to report. Bowel Motility: No BM reported for the past 1 week. PO intake very poor. Labs Reviewed: TG 215,Cr 3.8,GFR 16,BUN 89, Glu 185 Meds Noted:Clinimix E 4.35/5 at 80 ml/hr, Lipid Emulsion 20%, Reglan. Skin: WNL Additional Notes: Patient remains on a DBCC diet with Glucerna shakes TID. Oral intake remains poor 0-5% of meals. PPN continues at this time providing an additional 1153 kcal/82 gm protein. Plans for PPN till possibly Thursday 05/10. Discussed diet orders with hospitalist today. Will continue to monitor. Monitor PPN, wt, labs, skin, meds. Follow every Thursday and Thursday per protocol.
[2024-05-06] MEDS: AMINO ACIDS 4.25%/D5W/LYTES/CA 2,000 ML 80 ML IV CONT (13:37)
[2024-05-06] MEDS: FAT EMULSIONS IV 20% 250 ML 20.83 ML IVPB (13:38)
[2024-05-06 16:17] LABS: Sodium 125 mmol/L (137-145)
[2024-05-06 16:54] LABS: Glucose Point of Care 180 mg/dl (65-105)
[2024-05-06 19:56] LABS: Glucose Point of Care 200 mg/dl (65-105)
[2024-05-06] MEDS: LATANOPROST 0.005% OP SOLN 2.5 ML BTL 1 DROP LEFT EYE (20:25)
[2024-05-06] MEDS: CENTRAL LINE FLUSH 10 ML IV PUSH (20:25)
[2024-05-06 21:59] LABS: Sodium 124 mmol/L (137-145)
[2024-05-07] VITALS (8 sets, daily range): BP systolic 106–114; BP diastolic 49–54; PULSE 68–102; RESP 14–18; TEMP 36.1–36.4; O2SAT 99–100
[2024-05-07 04:03] LABS: Basophils Percent Auto 0.2 % (0.2-1.2); Eosinophils Absolute Auto 0.1 K/mm3 (0-0.3); Hematocrit 34.6 % (42.0-52.0); Hemoglobin 11.7 g/dL (14.0-18.0); Immature Granulocyte Absolute 0.17 K/mm3 (0.00-0.031); Immature Granulocyte Percent A 1.7 % (0-0.5); Lymphocytes Absolute Auto 0.54 K/mm3 (0.9-3.2); Lymphocytes Percent Auto 5.5 % (18.3-44.2); Mean Corpuscular HGB Conc 33.8 g/dl (32-36); Mean Corpuscular Hemoglobin 30.4 pg (26-34); Mean Corpuscular Volume 89.9 fl (80-100); Mean Platelet Volume 9.6 fl (7.4-10.4); Monocytes Absolute Auto 0.7 K/mm3 (0.1-0.6); Monocytes Percent Auto 7.4 % (2.6-8.5); Neutrophils Absolute Auto 8.3 K/mm3 (1.3-6.7); Neutrophils Percent Auto 84.2 % (45.5-73.1); Platelet Count Result 185 k/mm3 (150-375); Red Blood Count 3.85 M/mm3 (4.6-6.20); Red Cell Distribution Width 15.6 % (11.5-14.5); White Blood Count 9.9 K/mm3 (4.5-10.0)
[2024-05-07 04:17] LABS: Alanine Aminotransferase 80 U/L (6-50); Albumin Level 2.4 g/dL (3.5-5.1); Alkaline Phosphatase 1102 U/L (38-126); Anion Gap 10 mmol/L (4-12); Aspartate Amino Transferase 171 U/L (17-59); Bilirubin,Total 3.3 mg/dL (0.2-1.3); Blood Urea Nitrogen 99 mg/dL (9-20); Calcium 9.6 mg/dL (8.4-10.2); Carbon Dioxide 17 mmol/L (22-30); Chloride 96 mmol/L (98-107); Estimated CRCL calculation 20 ml/min; Estimated Glomerular Filt Rate 16; Glucose 152 mg/dL (65-110); Magnesium 2.3 mg/dL (1.6-2.3); Potassium 5.2 mmol/L (3.4-5.0); Sodium 123 mmol/L (137-145)
[2024-05-07] MEDS: CENTRAL LINE FLUSH 10 ML IV PUSH ×2 (05:33→13:29)
[2024-05-07] MEDS: AMINO ACIDS 4.25%/D5W/LYTES/CA 2,000 ML 80 ML IV CONT (05:47)
--- NOTE | 2024-05-07 06:42 | PM.IMPN ---
Progress Note: A&P Assessment and Plan (1) Comfort measures only status: Code(s): Z51.5 - Encounter for palliative care Status: Acute Assessment and Plan: Rediscussed code status and hospice care with patient and his sons, Sony (POA) and Gustavo. Patient and sons are in agreement and wish to become DNR and started on comfort measures. Sony and patient are interested in going home on hospice. Care coordination consulted for hospice. - P.r.n. vital signs, I&Os, neuro status per family request, the patient is a fall risk bleeding risk - May suction as needed for increased secretions and patient comfort - Morphine sulfate 2 mg IV PRN q4 hours - Atropine sulfate 1% - give 2 drops as needed every 3 hours for oral secretions - Acetaminophen 650 mg suppository, give IL 1 capsule every 6 hours as needed - Lorazepam 2 mg IV every 2 hours as needed for restlessness - Apply scopolamine patch to oral secretions - Plan oxygen per nasal cannula as needed for patient comfort - May insert Manuel catheter for patient comfort - Care coordination consulted for hospice (2) Adult failure to thrive: Code(s): R62.7 - Adult failure to thrive Status: Acute Assessment and Plan: Patient is clinically deteriorating and becoming increasingly weak due to inadequate nutrition secondary to his metastatic disease causing nausea and lack of appetite. - PEG tube is not an option d/t malignant ascites and need for frequent paracenteses - Dophoff and NG is not an option d/t home health not willing to manage per care coordination - Patient notes nausea with food odors will attempt to give PO reglan prior to meals and give nonodorous foods. - Discussed patient with nutrition. Will continue reglan with meals and start on PPN. - TPN vs hospice. Discussed with patient that this is not a senior living treatment plan. - Per care coordination patient would require an effusion company, [employer], a following physician and family member to handle the effusions to DC on TPN. Spoke with Dr. Verma and he is willing to follow patients TPN outpatient. Care coordination aware and is working on the other requirements for patient to be discharged on TPN. (3) Metastatic adenocarcinoma: Code(s): C79.9 - Secondary malignant neoplasm of unspecified site Status: Acute Assessment and Plan: Concern for biliary tract cancer versus gallbladder cancer d/t elevated liver enzymes - Abdomen/pelvis CT 04/16: Right upper quadrant mass at the head of the pancreas/hilum of the liver. Multiple hepatic masses suspicious for metastatic disease. Thoracic and upper abdominal lymphadenopathy. Peritoneal. Moderate ascites. - Abdomen MRI 04/19: Liver masses, abdominal lymphadenopathy, and moderate volume of malignant ascites, consistent with metastatic disease. Cholelithiasis. Gallbladder distention may secondary to fasting. - Port placed 04/[address] Arroyo for future chemotherapy - LFTs elevated likely due to liver metastasis - Oncology following and continuing work up (4) Ascites, malignant: Code(s): R18.0 - Malignant ascites Status: Acute Assessment and Plan: Patient endorses shortness of breath likely due to volume overload. - s/p nondiagnostic paracentesis on 05/02 yielding 5L - s/p nondiagnostic paracentesis on 05/06 yielding 5L (5) Hyponatremia: Code(s): E87.1 - Hypo-osmolality and hyponatremia Status: Acute Assessment and Plan: Sodium baseline is mid to upper 120s. Most likely related to patients underlying malignancy as he is not on any medications that would cause this other than diuretics. - Na 123 on am labs - Not on fluid restriction as patient is self restricting due to low intake - Patient unable to tolerate salt tabs. Nephrology started him on small amount of 3% saline - Continue to monitor with daily labs (6) Acute renal failure: Qualifiers: Acute renal failure type: unspecified Qualified Code(s
[2024-05-07 07:57] LABS: Glucose Point of Care 148 mg/dl (65-105)
[2024-05-07] MEDS: TIMOLOL MALEATE 0.5% OP SOLN 5 ML BOTTLE 1 DROP EACH EYE (08:29)
[2024-05-07] MEDS: DORZOLAMIDE/TIMOLOL OPHTH SOL 10 ML BOTTLE 1 DROP EACH EYE (08:29)
--- NOTE | 2024-05-07 08:39 | PM.PNNEP ---
Progress Note: A&P Assessment and Plan (1) Acute kidney injury: Code(s): N17.9 - Acute kidney failure, unspecified Status: Acute Assessment and Plan: the patient has acute kidney injury on top of an already high creatinine. I suspect that the patient has renal failure due to prerenal factors and high calcium. He is now getting nutrition. He is not eating much still. Still very weak (2) Type 2 diabetes mellitus: Qualifiers: Diabetes mellitus predatory animal exterminator insulin use: without correction use Diabetes mellitus complication status: without complication Qualified Code(s): E11.9 - Type 2 diabetes mellitus without complications Code(s): E11.9 - Type 2 diabetes mellitus without complications Status: Acute Assessment and Plan: the patient is on Accu-Cheks. (3) Hypertension: Qualifiers: Hypertension type: primary hypertension Qualified Code(s): I10 - Essential (primary) hypertension Code(s): I10 - Essential (primary) hypertension Status: Chronic Assessment and Plan: Blood pressure is under good control Systolic has been ranging from 106-140 (4) Metastatic disease: Qualifiers: Area of secondary neoplastic involvement: unspecified site Qualified Code(s): C79.9 - Secondary malignant neoplasm of unspecified site Code(s): C79.9 - Secondary malignant neoplasm of unspecified site Status: Chronic Assessment and Plan: The patient is going to start chemotherapy at some point (5) Transaminitis: Code(s): R74.01 - Elevation of levels of liver transaminase levels Status: Acute Assessment and Plan: liver enzymes high likely due to liver Mets (6) Edema: Code(s): R60.9 - Edema, unspecified Status: Acute Assessment and Plan: most likely due to metastatic disease with liver involvement (7) Hypercalcemia: Code(s): E83.52 - Hypercalcemia Status: Acute Assessment and Plan: most likely this is due to metastatic disease in the bones. He also is at bed rest which causes resorption of calcium from the bones. PTH is only 12 urine calcium is high c/w mets or mobilization. PTH related protein pending he received pamidronate Thursday Calcium level is down to 9.6 Gradual improvement of the calcium as a result of the pamidronate. Up in chair as tolerated but he does not last very long unfortunately. (8) Hyponatremia: Code(s): E87.1 - Hypo-osmolality and hyponatremia Status: Acute Assessment and Plan: sodium level is mildly low. is ranging in the high 120s. TSH and cortisol were okay in the past. He is not on any medications that would do this other than the diuretics. Most likely due to his cancer it is not low enough to use demeclocycline because this is very expensive and the sodium is stable. not on a fluid restriction as he is not taking much in on his own anyway. Salt tablets not tolerated. Will give a small amount of 3% saline today Subjective Date/time seen: 05/07/24 08:39 Interval history: Fluid is about the same today. Still very weak. He sat up in a lazy Boy chair for about a 1/2hour or 45minutes and then went downstairs for a paracentesis. He was exhausted after that. He had a little bit of the salt tablet but could not tolerate much of it. Exam Narrative: WDWN male in NAD looking chronically ill and very weak skin no rash head ncat lungs clear to auscultation cor reg no rub or gallop abd BS+ nontender and soft. less distended. ext 2+ bilateral edema, unchanged. Objective Data Vital Signs Vital Signs: Vital Signs - 24 hr 05/06/24 12:00 05/06/24 16:00 05/06/24 16:24 Temperature 96 F L Pulse Rate 86 87 90 Respiratory Rate 16 Blood Pressure 106/50 L Pulse Oximetry 98 05/06/24 20:43 05/06/24 20:00 05/07/24 00:00 Temperature 97.5 F L Pulse Rate 95
[2024-05-07] MEDS: SODIUM CHLORIDE 3% 270 ML 24.3 ML IV CONT (10:08)
[2024-05-07] MEDS: MORPHINE SULFATE (*CRX) 2 MG/ML INJ IV PUSH ×2 (11:25→18:42)
[2024-05-07 11:54] LABS: Glucose Point of Care 173 mg/dl (65-105)
[2024-05-07] MEDS: FAT EMULSIONS IV 20% 250 ML 20.83 ML IVPB (13:28)
--- NOTE | 2024-05-07 15:14 | PC.NURSE ---
Patient's oriented off and on throughout the day today. Patient can be difficult to understand r/t garbled and mumbling speech. This morning patient stated that he thought he was at [facility] when asked orientation questions, however an hour later patient was AOx3 when speaking to hospitalist. Overnight patient became confused and pulled out cervantes catheter per retail shift supervisor nurse. Struggling to swallow today, and is refusing most pills/liquid medications- son states patient has a tumor in his throat . Provider aware and spoke to patient/ family about comfort care/hospice. Referral made to care coordination.
[2024-05-07 16:49] LABS: Glucose Point of Care 180 mg/dl (65-105)
[2024-05-07 17:13] LABS: Parathyroid Hormone Related Pr 18 pg/mL (11-20)
[2024-05-07] MEDS: HEPARIN SODIUM LOCK FLUSH 500 UNITS/5 ML SYRINGE IV PUSH (18:42)
--- NOTE | 2024-05-07 18:56 | PCCCNOTE ---
1530 CC called to pt room to discuss going home tonight on Hospice care. I spoke with the pt, and both sons, isaac (POAugustina), and Chana. They were given the choice and choose to have [facility] care for them. 1600: Call placed to Savanna, the on-call nurse from [facility], all information given to her. 1615: Savanna returned call to give an ETA for Kayla HEARN, to come talk to the family. 1730: Kayla HEARN given all the information she needed and pt is signed under their service. 1830: Dr. Medina contacted to get the D/C order. The staff on the floor were calling for the ambulance to transport patient home. Kayla with [facility] has the equipment and medications coming to the house.
--- NOTE | 2024-05-07 19:02 | PC.NURSE ---
All infusions stopped and port de-accessed at 1900. Patient to D/C home on [facility]. Ambulance called
[2024-05-08 05:42] VITALS: BP 131/64; PULSE 96; RESP 16; TEMP 36.1; O2SAT 100
--- NOTE | 2024-05-08 07:02 | PM.DS ---
DS: Admitting Diagnosis Discharge Date 05/08/24 Admitting Diagnosis comfort measures only status adult failure to thrive metastatic adenocarcinoma ascites, malignant hyponatremia acute renal type 2 diabetes hypertension DS: Discharge Diagnosis Discharge Diagnosis (1) Comfort measures only status: Code(s): Z51.5 - Encounter for palliative care Status: Acute (2) Adult failure to thrive: Code(s): R62.7 - Adult failure to thrive Status: Acute (3) Metastatic adenocarcinoma: Code(s): C79.9 - Secondary malignant neoplasm of unspecified site Status: Acute (4) Ascites, malignant: Code(s): R18.0 - Malignant ascites Status: Acute (5) Hyponatremia: Code(s): E87.1 - Hypo-osmolality and hyponatremia Status: Acute (6) Acute renal failure: Qualifiers: Acute renal failure type: unspecified Qualified Code(s): N17.9 - Acute kidney failure, unspecified Code(s): N17.9 - Acute kidney failure, unspecified Status: Acute (7) Type 2 diabetes mellitus: Qualifiers: Diabetes mellitus complication status: without complication Diabetes mellitus fpc insulin use: without moth exterminator use Qualified Code(s): E11.9 - Type 2 diabetes mellitus without complications Code(s): E11.9 - Type 2 diabetes mellitus without complications Status: Acute (8) Hypertension: Qualifiers: Hypertension type: primary hypertension Qualified Code(s): I10 - Essential (primary) hypertension Code(s): I10 - Essential (primary) hypertension Status: Chronic DS: Summary Hospital Course Reason for hospitalization: comfort measures only status adult failure to thrive metastatic adenocarcinoma ascites, malignant hyponatremia acute renal type 2 diabetes hypertension Hospital Course: 78 y/o M with PMH of metastatic cancer of unknown origin, diabetes, glaucoma, and hypertension presents here with decreased appetite. Patient is clinically deteriorating and becoming increasingly weak due to inadequate nutrition secondary to his metastatic disease causing nausea and lack of appetite. PEG tube is not an option d/t malignant ascites and need for frequent paracenteses. Dophoff and NG is not an option d/t home health not willing to manage per care coordination. Throughout admission patient was not wanting to pursue hospice as he was trying to survive long enough to sign paperwork for his family. He received two paracenteses on 05/02 and 05/06 which yielded 5 L each. Patient was also evaluated by nephrology for his ongoing renal failure. Since patient was unable to have a PEG, maximino and BHARAT for nutrition discussed TPN. Per care coordination patient would require an effusion company, home health, a following physician and family member to handle the effusions to DC on TPN. Spoke to Dr. Verma was willing to follow patients TPN outpatient. The following day patients son Sony informed him that the paperwork has been canceled. Patient at that point was becoming more confused and was unable to swallow. Rediscussed code status and hospice care with patient and his sons, Sony (POA) and Gustavo at that time. Patient and sons are in agreement and wish to become DNR and started on comfort measures with plan of going home on hospice. Care coordination was consulted for hospice at that time. [facility] was arranged on 05/07. Patient was suppose to be discharged overnight, however the ambulance was unable to get him until this morning. Patient discharged home with family on [facility]. Status at Discharge Functional status at discharge: bed bound Time Spent with Patient Time attestation: Total time spent providing and/or coordinating discharge services: Time spent: Greater than 30 minutes Exam Narrative: General: cachectic male in no acute respiratory distress who is ill appearing, lying semi recumbent in bed. HEENT: Normocephalic. Atraumatic. Ex
[2024-05-08 08:15] LABS: Glucose Point of Care 140 mg/dl (65-105)
--- NOTE | 2024-05-08 08:15 | PM.PNNEP ---
Progress Note: A&P Assessment and Plan (1) Acute kidney injury: Code(s): N17.9 - Acute kidney failure, unspecified Status: Acute Assessment and Plan: the patient has acute kidney injury on top of an already high creatinine. Looks like he is at a new baseline. CKD due to prerenal factors and high calcium. He is now getting nutrition. Labs pending Still very weak (2) Type 2 diabetes mellitus: Qualifiers: Diabetes mellitus clinical education academic coordinator insulin use: without clinical education academic coordinator use Diabetes mellitus complication status: without complication Qualified Code(s): E11.9 - Type 2 diabetes mellitus without complications Code(s): E11.9 - Type 2 diabetes mellitus without complications Status: Acute Assessment and Plan: the patient is on Accu-Cheks. (3) Hypertension: Qualifiers: Hypertension type: primary hypertension Qualified Code(s): I10 - Essential (primary) hypertension Code(s): I10 - Essential (primary) hypertension Status: Chronic Assessment and Plan: Blood pressure is under good control Systolic has been ranging from 106-131 (4) Metastatic disease: Qualifiers: Area of secondary neoplastic involvement: unspecified site Qualified Code(s): C79.9 - Secondary malignant neoplasm of unspecified site Code(s): C79.9 - Secondary malignant neoplasm of unspecified site Status: Chronic Assessment and Plan: The patient is going to start chemotherapy at some point (5) Transaminitis: Code(s): R74.01 - Elevation of levels of liver transaminase levels Status: Acute Assessment and Plan: liver enzymes high likely due to liver Mets (6) Edema: Code(s): R60.9 - Edema, unspecified Status: Acute Assessment and Plan: most likely due to metastatic disease with liver involvement (7) Hypercalcemia: Code(s): E83.52 - Hypercalcemia Status: Acute Assessment and Plan: most likely this is due to metastatic disease in the bones. He also is at bed rest which causes resorption of calcium from the bones. PTH is only 12 urine calcium is high c/w mets or mobilization. PTH related protein pending he received pamidronate Thursday Calcium level is pending for today (8) Hyponatremia: Code(s): E87.1 - Hypo-osmolality and hyponatremia Status: Acute Assessment and Plan: sodium level is mildly low. is ranging in the high 120s. TSH and cortisol were okay in the past. He is not on any medications that would do this other than the diuretics. Most likely due to his cancer it is not low enough to use demeclocycline because this is very expensive and the sodium is stable. not on a fluid restriction as he is not taking much in on his own anyway. He received 3% saline yesterday. another sodium is pending for this morning Subjective Date/time seen: 05/08/24 08:15 Interval history: patient is alert. Still weak. No chest pain or shortness of breath Getting peripheral nutrition Exam Narrative: WDWN male in NAD looking chronically ill and very weak skin no rash head ncat lungs clear cor reg no rub abd BS+ nontender and soft. less distended. ext 2+ bilateral edema Objective Data Vital Signs Vital Signs: Vital Signs - 24 hr 05/07/24 14:00 05/07/24 12:00 05/07/24 16:00 Temperature 97.6 F Pulse Rate 85 85 95 Respiratory Rate 18 Blood Pressure 107/51 L Pulse Oximetry 100 05/07/24 20:58 05/08/24 05:42 Temperature 97.1 F L 96.9 F L Pulse Rate 89 96 Respiratory Rate 16 16 Blood Pressure 114/54 L 131/64 Pulse Oximetry 99 100 Intake/Output Intake/Output: Intake & Output 05/05/24 05/06/24 05/07/24 05/08/24 23:59 23:59 23:59 23:59 Intake Total 1319.2 2445.3 2490 0 Output Total 700 5500 Balance 619.2 -3054.7 2490 0 Meds/Results Medications: Active Medications Generic
[2024-05-08 11:49] LABS: Glucose Point of Care 132 mg/dl (65-105)
[2024-05-08] MEDS: ACETAMINOPHEN ELIXIR 325 MG/10.15 ML UDC 650 MG PO (12:07)
[2024-05-08 14:00] VITALS: BP 111/50; PULSE 97; RESP 18; TEMP 36.4; O2SAT 100
== END 2024-05-08 15:30 | disposition hospice, home (50) | DRG 683 ==
LOC: ANHED 05-01 01:41 → ANH2MED 05-01 02:21
PROVIDERS: Internal Medicine Nephrology; Nurse Practitioner; Admitting Provider Internal Medicine; Emergency Provider Physician Assistant; PCP Nurse Practitioner Adult Health; Visit Provider Student in an Organized Health Care Education/Training Program
DX: N17.9 Acute kidney failure, unspecified (principal); B37.0 Candidal stomatitis; E87.1 Hypo-osmolality and hyponatremia; R18.0 Malignant ascites; I12.0 Hypertensive chronic kidney disease with stage 5 chronic kidney disease or end stage renal disease; C78.7 Secondary malignant neoplasm of liver and intrahepatic bile duct; E46 Unspecified protein-calorie malnutrition; C78.6 Secondary malignant neoplasm of retroperitoneum and peritoneum; C80.1 Malignant (primary) neoplasm, unspecified; Z51.5 Encounter for palliative care; Z66 Do not resuscitate; D63.0 Anemia in neoplastic disease; E11.22 Type 2 diabetes mellitus with diabetic chronic kidney disease; E83.52 Hypercalcemia; E86.0 Dehydration; H40.9 Unspecified glaucoma; N18.5 Chronic kidney disease, stage 5; R62.7 Adult failure to thrive; R74.01 Elevation of levels of liver transaminase levels; Z86.16 Personal history of COVID-19; Z98.41 Cataract extraction status, right eye; Z98.42 Cataract extraction status, left eye; Z96.1 Presence of intraocular lens; Z79.84 Long term (current) use of oral hypoglycemic drugs
CPT/HCPCS: 36415; 49083; 71046; 76775; 80048; 80053; 80069; 81001; 82310; 82550; 82570; 82948; 83519; 83735; 83970; 84100; 84156; 84295; 84300; 84466; 84478; 84540; 85025; 85027; 85610; 85730; 93005; 96365; 96375; 99285; A9270; G0378; J1450; J1815; J2270; J2430; J7030; J7060; J7131